=== PATIENT | male | born 1950 | race African-American/Black ===

== ENCOUNTER 2017-09-13 21:25 | Emergency (ER) | payer MEDICARE ==
[~2017-09-13] VITALS: Ht 170.2 cm; Wt 81.6 kg
--- OUTSIDE RECORDS SUMMARY | 2017-09-13 21:32 | XMS REPORT ---
Author Author [facility] Medical Staff Organization [facility] Address [address] [place], [place] [address] Phone [phone] Summary purpose CCDA Sent to [facility] Chief Complaint and Reason for Visit No authorized Reason for Visit (Admitting Diagnosis) is available for this visit. Problem list No authorized problems tracked for continuity of care are available for this visit. Encounters No authorized problems tracked for encounter diagnoses are available for this visit. Medications No medications recorded for this patient visit Allergies, adverse reactions, alerts No allergy information is available for this patient. Immunizations No immunizations recorded for this patient visit Relevant diagnostic tests and/or laboratory data No authorized results are available for this patient visit History of procedures Procedure Code Code Type Description Date Performed Performing Physician 29823 CPT-4 EMERGENCY DEPT VISIT 10-14-2016 AMOR CHAUDHARY Functional status No functional or cognitive status observations are available for this visit. Vital signs No authorized vital signs are available for this visit. Social history No Social History or smoking status observations were recorded for this visit. ( Unknown if ever smoked.) Treatment Plan No treatment plan text is available for this visit. Hospital discharge instructions No discharge instruction text is available for this visit.
--- OUTSIDE RECORDS SUMMARY | 2017-09-13 21:32 | XMS REPORT ---
Author Author [facility] Medical Staff Organization [facility] Address [address] [place], [place] [address] Phone [phone] Summary purpose CCDA Sent to [facility] Chief Complaint and Reason for Visit No [...] Code Type Description Date Performed Performing Physician 75131 CPT-4 ELECTROCARDIOGRAM REPORT 10-14-2016 [facility] Functional status No functional or cognitive status [...]
--- OUTSIDE RECORDS SUMMARY | 2017-09-13 21:32 | XMS REPORT ---
Author Author [facility] Medical Staff Organization [facility] Address [address] [place], [place] [id number] Phone [phone] Summary purpose CCDA Sent to [facility] Chief Complaint and Reason for Visit Admit Diagnosis 1 unspecified mood disorder Problem list No authorized problems tracked for [...] for this patient visit History of procedures No procedures recorded for this patient visit. Functional status No functional or cognitive status [...]
--- OUTSIDE RECORDS SUMMARY | 2017-09-13 21:32 | XMS REPORT ---
Author Author [facility] Medical Staff Organization [facility] Address [address] [place], [place] [address] Phone [phone] Summary purpose CCDA Sent to [facility] Chief Complaint and Reason for Visit Admit Diagnosis 1 MENTAL HEALTH SCREENING Problem list No authorized problems tracked for [...]
--- OUTSIDE RECORDS SUMMARY | 2017-09-13 21:33 | XMS REPORT | Continuity of Care Document ---
Author Author [facility] Organization [facility] Address Unknown Phone Unavailable Allergies There is no data. Medications There is no data. 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 11/16/2016 DAVID LEDEZMA MD F10.10 Alcohol abuse, uncomplicated 11/16/2016 DAVID LEDEZMA MD F25.0 Schizoaffective disorder, bipolar type 11/16/2016 DAVDI LEDEZMA MD I10 Essential (primary) hypertension 11/16/2016 DAVID LEDEZMA MD J30.9 Allergic rhinitis, unspecified 11/16/2016 DAVID LEDEZMA MD K59.00 Constipation, unspecified 11/16/2016 DAVID LEDEZMA MD N39.0 Urinary tract infection, site not specified 11/16/2016 DAVID LEDEZMA MD R32 Unspecified urinary incontinence 11/16/2016 DAVID LEDEZMA MD R35.0 Frequency of micturition 11/16/2016 DAVID LEDEZMA MD R41.0 Disorientation, unspecified 11/16/2016 DAVID LEDEZMA MD Z87.81 Personal history of (healed) traumatic fracture Procedures Code Description [place] [address] ROUTINE VENIPUNCTURE AMOR OTT 10/14/2016 32849 COMPREHEN METABOLIC PANEL AMOR OTT 10/14/2016 42029 URINALYSIS AUTO W/SCOPE AMOR OTT 10/14/2016 38066 ASSAY OF FREE THYROXINE AMOR OTT 10/14/2016 88174 ASSAY THYROID STIM HORMONE AMOR OTT 10/14/2016 78923 COMPLETE CBC W/AUTO DIFF WBC JET LAMASAMOR 10/14/2016 00636 CULTURE AEROBIC IDENTIFY JET LAMASAMOR 10/14/2016 12262 CULTURE SCREEN ONLY JET LAMASAMOR 10/14/2016 05941 URINE CULTURE/COLONY COUNT JET LAMASAMOR 10/14/2016 60658 MICROBE SUSCEPTIBLE MARLENI JET BAINAMOR Brown 10/14/2016 11731 ELECTROCARDIOGRAM TRACING JET AMOR LAMAS 10/14/2016 52722 EMERGENCY DEPT VISIT AMOR OTT 10/14/2016 Results There is no data. Encounters ACCT No. Visit Date/Time Discharge Status Pt. Type Provider Facility Loc./Unit Complaint [id number] 10/14/2016 04:20:00 11/16/2016 20:18:00 DIS Inpatient BRISA COMER, DAVID Nugent [facility] [id number] 10/14/2016 02:40:00 10/14/2016 04:15:00 DIS Emergency AMOR OTT [facility] ER
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
[2017-09-13 22:16] LABS: BASOPHILS % (AUTO) 0 % (0-10); EOSINOPHILS # (AUTO) 0.2 10^3/uL (0.0-0.3); EOSINOPHILS % (AUTO) 4 % (0-10); HEMATOCRIT 43 % (40-54); HEMOGLOBIN 13.7 G/DL (13.3-17.7); LYMPHOCYTES # (AUTO) 2.6 X 10^3 (1.0-4.0); LYMPHOCYTES % (AUTO) 54 % (12-44); MEAN CORPUSCULAR HEMOGLOBIN 29 PG (25-34); MEAN CORPUSCULAR HGB CONC 32 G/DL (32-36); MEAN CORPUSCULAR VOLUME 89 FL (80-99); MEAN PLATELET VOLUME 12.3 FL (7.4-10.4); MONOCYTES # (AUTO) 0.5 X 10^3 (0.0-1.0); MONOCYTES % (AUTO) 10 % (0-12); NEUTROPHILS # (AUTO) 1.6 X 10^3 (1.8-7.8); NEUTROPHILS % (AUTO) 32 % (42-75); PLATELET COUNT 138 10^3/uL (130-400); RED BLOOD COUNT 4.79 10^6/uL (4.35-5.85); RED CELL DISTRIBUTION WIDTH 14.1 % (10.0-14.5); WHITE BLOOD COUNT 4.9 10^3/uL (4.3-11.0)
[2017-09-13] MEDS ORDERED: ATEN50TA PO (22:22)
[2017-09-13] MEDS ORDERED: FURO-125 PO (22:22)
[2017-09-13] MEDS ORDERED: GABA-486 PO (22:22)
[2017-09-13] MEDS ORDERED: SENN-140 PO (22:22)
[2017-09-13] MEDS ORDERED: MELA5CAP PO (22:22)
[2017-09-13] MEDS ORDERED: dorzolamide (22:22)
[2017-09-13] MEDS ORDERED: ATOR10TA PO (22:22)
[2017-09-13] MEDS ORDERED: QUET200T PO (22:22)
[2017-09-13] MEDS ORDERED: DOCU-143 PO (22:22)
[2017-09-13] MEDS ORDERED: DULO30CA3 PO (22:22)
[2017-09-13] MEDS ORDERED: MILK OF MAGNESIUM (22:22)
[2017-09-13 22:34] LABS: ALANINE AMINOTRANSFERASE 12 U/L (0-55); ALKALINE PHOSPHATASE 52 U/L (40-136); BILIRUBIN,TOTAL 0.3 MG/DL (0.1-1.0); BUN/CREATININE RATIO 11; CALCIUM 9.8 MG/DL (8.5-10.1); CARBON DIOXIDE 21 MMOL/L (21-32); CHLORIDE 108 MMOL/L (98-107); CREATININE SERUM 1.08 MG/DL (0.60-1.30); GFR ESTIMATED > 60; GLUCOSE 129 MG/DL (70-105); POTASSIUM 3.7 MMOL/L (3.6-5.0); SODIUM 139 MMOL/L (135-145); TOTAL PROTEIN 7.7 GM/DL (6.4-8.2)
[2017-09-13 23:39] LABS: BILIRUBIN,URINE NEGATIVE (NEGATIVE); CLARITY,URINE CLEAR; COLOR,URINE AMBER; GLUCOSE, URINE (UA) NEGATIVE (NEGATIVE); KETONES,URINE NEGATIVE (NEGATIVE); LEUKOCYTE ESTERASE ,URINE 1+ (NEGATIVE); NITRITE,URINE NEGATIVE (NEGATIVE); PH,URINE 5 (5-9); PROTEIN,URINE 1+ (NEGATIVE); UROBILINOGEN,URINE 1 MG/DL (NORMAL)
[2017-09-13 23:47] LABS: BACTERIA,URINE NEGATIVE /HPF; SQUAMOUS EPITHELIAL CELL,UR >50 /HPF
[2017-09-14 00:10] VITALS: BP 113/76
== END 2017-09-14 00:10 | disposition home or self-care (01) ==
LOC: ER 21:29
DX: F60.3 Borderline personality disorder (principal); F34.9 Persistent mood [affective] disorder, unspecified; F01.50 Vascular dementia, unspecified severity, without behavioral disturbance, psychotic disturbance, mood disturbance, and anxiety
CPT/HCPCS: 36415; 80053; 81000; 85025; 99283

== ENCOUNTER 2018-01-10 19:01 | Emergency (ER) | payer MEDICARE ==
[~2018-01-10] VITALS: Ht 172.7 cm; Wt 81.6 kg
[~2018-01-10 19:01] MED LIST: ATEN50TA PO; ATOR10TA PO; DOCU-143 PO; DULO30CA3 PO; FURO-125 PO; GABA-486 PO; MELA5CAP PO; MILK OF MAGNESIUM; QUET200T PO; SENN-141 PO; dorzolamide
--- OUTSIDE RECORDS SUMMARY | 2018-01-10 19:23 | XMS REPORT | Continuity of Care Document ---
Author Author [facility] Organization [facility] Address Unknown Phone Unavailable Allergies Active Description Code Type Severity Reaction Onset Reported/Identified Relationship to Patient Clinical Status Yes NO KNOWN DRUG ALLERGIES UNKNOWN NO KNOWN DRUG ALLERG Medications Medication Packaging Start Date Stop Date Route Dosage Sig HALOPERIDOL TAB 5 MG (HALDOL) MG 10/27/2017 PRN Q6H LORAZEPAM TAB 2 MG (ATIVAN) MG 10/04/2017 PRN Q6H HALOPERIDOL VIAL INJ 5 MG/CC (HALDOL 1CC VIAL) MG 09/27/2017 10/04/2017 PRN Q6H LORAZEPAM 1CC VIAL INJ 2 MG/CC (ATIVAN VIAL) MG 09/27/2017 10/04/2017 PRN Q6H GABAPENTIN CAP 100 MG (NEURONTIN) MG 09/27/2017 10/04/2017 TID&0800,1400,2000 QUETIAPINE TAB 100 MG (SEROQUEL) MG 09/27/2017 10/04/2017 BID&0800,2000 Docusate sodium 100mg oral capsule (COLACE) MG 09/27/2017 10/27/2017 BID&0800,2000 DIVALPROEX ER TAB 125 MG (DEPAKOTE ER) MG 09/27/2017 10/27/2017 BID&0800,2000 DORZOLAMIDE EYE DROP OPT 2 % (TRUSOPT EYE DROP) drop 09/27/2017 10/11/2017 BID&0800,2000 DULOXETINE CAP 30 MG (CYMBALTA) MG 09/27/2017 10/27/2017 BID&0800,2000 SIMVASTATIN TAB 10 MG (ZOCOR) MG 10/26/2017 QPM&2000 SENNA CONC/DOCUSATE TAB (SENOKOT S) TAB 09/27/2017 10/26/2017 QHS&2100 MELATONIN TAB 3 MG (MELATONIN) MG 09/27/2017 10/03/2017 QHS&2100 ACETAMINOPHEN ORAL TABLET 325mg(Tylenol) MG 09/27/2017 10/27/2017 PRN EVERY 6 Hour ALUM/MAG/SIMETH 30CC LIQ (MYLANTA PLUS) cc 09/28/2017 10/28/2017 PRN Q4H LOPERAMIDE CAP 2 MG (IMMODIUM) MG 09/28/2017 10/28/2017 PRN QID LACTULOSE SYRUP LIQ 20 GM/30CC (CHRONULAC SYRUP) GM 09/28/2017 10/27/2017 BID&0800,2000 FUROSEMIDE TAB 20 MG (LASIX) MG 10/04/2017 Daily&0900 BISACODYL SUPPOS 10 MG (DULCOLAX SUPPOS) MG 09/28/2017 10/28/2017 PRN Daily ATENOLOL TAB 50 MG (TENORMIN) MG 10/27/2017 Daily&0900 MILK OF MAGNESIA LIQ ml 09/28/2017 10/28/2017 PRN Daily Divalproex 250mg extended release 24 hr (Depakote) MG 09/29/2017 10/28/2017 QHS&2100 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 11/16/2016 DAVID LEDEZMA MD F10.10 Alcohol abuse, uncomplicated 11/16/2016 DAVID LEDEZMA MD F25.0 Schizoaffective disorder, bipolar type 11/16/2016 DAVID LEDEZMA MD I10 Essential (primary) hypertension 11/16/2016 DAVID LEDEZMA MD J30.9 Allergic rhinitis, unspecified 11/16/2016 DAVID LEDEZMA MD K59.00 Constipation, unspecified 11/16/2016 DAVID LEDEZMA MD N39.0 Urinary tract infection, site not specified 11/16/2016 DAVID LEDEZMA MD R32 Unspecified urinary incontinence 11/16/2016 DAVID LEDEZMA MD R35.0 Frequency of micturition 11/16/2016 BRISA MD, DAVID B D R41.0 Disorientation, unspecified 11/16/2016 BRISA COMER, DAVID Shukla Z87.81 Personal history of (healed) traumatic fracture 09/14/2017 DELPHINE COMER, KIRT T Ot F01.50 VASCULAR DEMENTIA WITHOUT BEHAVIORAL DIS 09/14/2017 DELPHINE COMER, KIRT T Ot 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, UN 09/14/2017 DELPHINE COMER, KIRT T Ot 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 09/14/2017 DELPHINE COMER, KIRT T Ot 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 09/15/2017 DELPHINE COMER, KIRT T Ot F01.50 VASCULAR DEMENTIA WITHOUT BEHAVIORAL DIS 09/15/2017 DELPHINE COMER, KIRT T Ot 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, UN 09/15/2017 DELPHINE COMER, KIRT T Ot 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 09/15/2017 DELPHINE COMER, KIRT T Ot 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 09/27/2017 JAILYN, ASHLEY W 290.41 VASCULAR DEMENTIA, WITH DELIRIUM 09/27/2017 JAILYN, ASHLEY W 300.00 ANXIETY STATE, UNSPECIFIED 09/27/2017 JAILYN, ASHLEY W 401.9 UNSPECIFIED ESSENTIAL HYPERTENSION 09/27/2017 JAILYN, ASHLEY W F01.51 VASCULAR DEMENTIA WITH BEHAVIORAL DISTURBANCE 09/27/2017 JAILYN, ASHLEY W F41.9 ANXIETY DISORDER, UNSPECIFIED 09/27/2017 JAILYN, ASHLEY W I10 ESSENTIAL (PRIMARY) HYPERTENSION 10/03/2017 JAILYN, ASHLEY W 272.4 OTHER AND UNSPECIFIED HYPERLIPIDEMIA 10/03/2017 JAILYN, ASHLEY W 290.41 VASCULAR DEMENTIA, WITH DELIRIUM 10/03/2017 JAILYN, ASHLEY A 296.34 10/03/2017 JAILYN, ASHLEY W 297.1 10/03/2017 JAILYN, ASHLEY W 300.00 ANXIETY STATE, UNSPECIFIED 10/03/2017 JAILYN, ASHLEY W 401.9 UNSPECIFIED ESSENTIAL HYPERTENSION 10/03/2017 JAILYN, ASHLEY W 564.00 CONSTIPATION, UNSPECIFIED 10/03/2017 JAILYN, ASHLEY W E78.5 HYPERLIPIDEMIA, UNSPECIFIED 10/03/2017 ASHLEY GLASER F01.51 VASCULAR DEMENTIA WITH BEHAVIORAL DISTURBANCE 10/03/2017 ASHLEY GLASER F22 DELUSIONAL DISORDERS 10/03/2017 ASHLEY GLASER F33.3 MAJOR DEPRESSV DISORDER, RECURRENT, SEVERE W PSYCH SYMPTOMS 10/03/2017 ASHLEY GLASER F41.9 ANXIETY DISORDER, UNSPECIFIED 10/03/2017 ASHLEY GLASER I10 ESSENTIAL (PRIMARY) HYPERTENSION 10/03/2017 ASHLEY GLASER K59.09 OTHER CONSTIPATION Procedures Code Description [place] [address] ROUTINE VENIPUNCTURE AMOR OTT 10/14/2016 59668 COMPREHEN METABOLIC PANEL AMOR OTT 10/14/2016 37517 URINALYSIS AUTO W/SCOPE AMOR OTT 10/14/2016 98985 ASSAY OF FREE THYROXINE AMOR OTT 10/14/2016 91223 ASSAY THYROID STIM HORMONE AMOR OTT 10/14/2016 62520 COMPLETE CBC W/AUTO DIFF WBC AMOR OTT 10/14/2016 28373 CULTURE AEROBIC IDENTIFY AMOR OTT 10/14/2016 29279 CULTURE SCREEN ONLY AMOR OTT 10/14/2016 84595 URINE CULTURE/COLONY COUNT JET AMOR LAMAS 10/14/2016 87967 MICROBE SUSCEPTIBLE MARLENI JET AMOR LAMAS 10/14/2016 72165 ELECTROCARDIOGRAM TRACING AMOR OTT 10/14/2016 23376 EMERGENCY DEPT VISIT AMOR OTT 10/14/2016 Results Test Result Range Complete blood count (CBC) with automated white blood cell (WBC) differential - 09/13/17 22:07 Blood leukocytes automated count (number/volume) 4.9 10*3/uL 4.3-11.0 Blood erythrocytes automated count (number/volume) 4.79 10*6/uL 4.35-5.85 Venous blood hemoglobin measurement (mass/volume) 13.7 g/dL 13.3-17.7 Blood hematocrit (volume fraction) 43 % 40-54 Automated erythrocyte mean corpuscular volume 89 [foz_us] 80-99 Automated erythrocyte mean corpuscular hemoglobin (mass per erythrocyte) 29 pg 25-34 Automated erythrocyte mean corpuscular hemoglobin concentration measurement ( mass/volume) 32 g/dL 32-36 Automated erythrocyte distribution width ratio 14.1 % 10.0-14.5 Automated blood platelet count (count/volume) 138 10*3/uL 130-400 Automated blood platelet mean volume measurement 12.3 [foz_us] 7.4-10.4 Automated blood neutrophils/100 leukocytes 32 % 42-75 Automated blood lymphocytes/100 leukocytes 54 % 12-44 Blood monocytes/100 leukocytes 10 % 0-12 Automated blood eosinophils/100 leukocytes 4 % 0-10 Automated blood basophils/100 leukocytes 0 % 0-10 Blood neutrophils automated count (number/volume) 1.6 10*3 1.8-7.8 Blood lymphocytes automated count (number/volume) 2.6 10*3 1.0-4.0 Blood monocytes automated count (number/volume) 0.5 10*3 0.0-1.0 Automated eosinophil count 0.2 10*3/uL 0.0-0.3 Automated blood basophil count (count/volume) 0.0 10*3/uL 0.0-0.1 Comprehensive metabolic panel - 09/13/17 22:07 Serum or plasma sodium measurement (moles/volume) 139 mmol/L 135-145 Serum or plasma potassium measurement (moles/volume) 3.7 mmol/L 3.6-5.0 Serum or plasma chloride measurement (moles/volume) 108 mmol/L 98-107 Carbon dioxide 21 mmol/L 21-32 Serum or plasma anion gap determination (moles/volume) 10 mmol/L 5-14 Serum or plasma urea nitrogen measurement (mass/volume) 12 mg/dL 7-18 Serum or plasma creatinine measurement (mass/volume) 1.08 mg/dL 0.60-1.30 Serum or plasma urea nitrogen/creatinine mass ratio 11 NRG Serum or plasma creatinine measurement with calculation of estimated glomerular filtration rate > NRG Serum or plasma glucose measurement (mass/volume) 129 mg/dL 70-105 Serum or plasma calcium measurement (mass/volume) 9.8 mg/dL 8.5-10.1 Serum or plasma total bilirubin measurement (mass/volume) 0.3 mg/dL 0.1-1.0 Serum or plasma alkaline phosphatase measurement (enzymatic activity/volume) 52 U/L 40-136 Serum or plasma aspartate aminotransferase measurement (enzymatic activity/ volume) 18 U/L 5-34 Serum or plasma alanine aminotransferase measurement (enzymatic activity/volume ) 12 U/L 0-55 Serum or plasma protein measurement (mass/volume) 7.7 g/dL 6.4-8.2 Serum or plasma albumin measurement (mass/volume) 4.0 g/dL 3.2-4.5 Complete urinalysis with reflex to culture - 09/13/17 23:30 Urine color determination BUSTER NRG Urine clarity determination CLEAR NRG Urine pH measurement by test strip 5 5-9 Specific gravity of urine by test strip 1.025 1.016- 1.022 Urine protein assay by test strip, semi-quantitative 1+ NEGATIVE Urine glucose detection by automated test strip NEGATIVE NEGATIVE Erythrocytes detection in urine sediment by light microscopy NEGATIVE NEGATIVE Urine ketones detection by automated test strip NEGATIVE NEGATIVE Urine nitrite detection by test strip NEGATIVE NEGATIVE Urine total bilirubin detection by test strip NEGATIVE NEGATIVE Urine urobilinogen measurement by automated test strip (mass/volume) 1 mg/dL NORMAL Urine leukocyte esterase detection by dipstick 1+ NEGATIVE Automated urine sediment erythrocyte count by microscopy (number/high power field) NONE NRG Automated urine sediment leukocyte count by microscopy (number/high power field ) NONE NRG Bacteria detection in urine sediment by light microscopy NEGATIVE NRG Squamous epithelial cells detection in urine sediment by light microscopy >50 NRG Crystals detection in urine sediment by light microscopy NONE NRG Casts detection in urine sediment by light microscopy NONE NRG Mucus detection in urine sediment by light microscopy NEGATIVE NRG Complete urinalysis with reflex to culture NO NRG Thyroid Stimulating Hormone - 09/27/17 17:52 TSH 1.55 mIU/mL 0.32-5.00 Valproic Acid - 09/27/17 17:52 Valproic Acid 20.3 ug/mL 55.0-105.0 MRSA Screen - 09/27/17 17:52 FINAL CULTURE RESULTS MRSA Negative Nasal Culture MEDIA PLATED Setup at 18:00 on 09/27/2017 Urinalysis - 09/27/17 19:08 Icotest N/A Negative Urine Volume Urine Volume Sufficient (10mL) Urine-Appearance Clear Clear Urine-Bacteria Negative Urine-Bilirubin Negative Negative Urine-Blood Negative Negative Urine-Color Yellow Colorless-Lt. Yellow Urine-Epithelial Cells 0-5/HPF Urine-Glucose Negative Negative Urine-Ketones Negative Negative Urine-Leukocytes Negative Negative Urine-Nitrite Negative Negative Urine-Other Urine Saved if Culture Needed (48hrs from time of collection) Urine-pH 7.0 5-8.5 Urine-Protein Negative Negative Urine-RBC Rare/HPF Urine-Specific [place] 1.015 1.000-1.030 Urine-WBC 0-2/HPF Urobilinogen 0.2 0.2-1.0 CBC with Auto Diff - 09/28/17 05:25 Baso% 0.20 % 0.00-2.50 Eos 0.2 K/uL 0.0-0.7 Eos% 4.8 % 0.0-7.0 Hct 41.4 % 42.0-52.0 Hgb 13.5 g/dL 14.0-17.0 Lym 2.11 K/uL 0.60-3.40 Lym% 46.3 % 10.0-50.0 MCH 29.2 pg 27.0-31.2 MCHC 32.6 g/dL 32.0-36.0 MCV 89.6 fL 80.0-97.0 Concho% 12.7 % 0.0-12.0 MPV 12.6 fL 7.4-10.0 Elder% 36.0 % 37.0-80.0 Plt 121 K/uL 150-400 RBC 4.62 M/uL 4.20-5.40 RDW 13.5 % 11.6-14.8 WBC 4.56 K/uL 5.00-10.00 Elder 1.64 K/uL 2.00-6.90 [place] 0.6 K/uL 0.0-0.9 Baso 0.0 K/uL 0.0-0.2 Encounters ACCT No. Visit Date/Time Discharge Status Pt. Type Provider Facility Loc./Unit Complaint [id number] 10/14/2016 04:20:00 11/16/2016 20:18:00 DIS Inpatient BRISA COMER, DAVID Nugent [facility] [id number] 10/14/2016 02:40:00 10/14/2016 04:15:00 DIS Emergency AMOR OTT [facility] ER [id number] 09/13/2017 21:29:00 09/14/2017 00:10:00 DIS Emergency DELPHINE COMER, KIRT T [facility] ER REQUESTING PSYCHIATRIC EVALUATION [id number] 09/27/2017 19:25:00 10/03/2017 13:15:00 DIS Inpatient JAILYN [facility] [id number] 09/27/2017 17:41:02 Document Registration
[2018-01-10] MEDS ORDERED: HALOPERIDOL 5 MG/ML (HALDOL) AMP IM ONE (21:15)
[2018-01-10] MEDS ORDERED: diphenhydrAMINE 25 MG TAB (BENADRYL) PO ONE (21:15)
[2018-01-10] MEDS ORDERED: LORazepam INJ 2 MG/ML (ATIVAN) VIAL IM ONE (21:15)
--- NOTE | 2018-01-10 21:29 | ED Psychosocial ---
General Chief Complaint: Psych/Social Disorder Stated Complaint: AGITATION, HIT OTHER RESIDENT Nursing Triage Note: PT PRESENTS TO ED FROM [facility] FOR AGGITATION AND HITTING ANOTHER RESIDENT. PT REPORTS "HE FEELS FINE NOW AND THAT THE RESIDENT JUST GOT INTO HIS SPACE." PT IS PLEASANT AND COOPERATIVE WITH ED STAFF. Source: [facility] records Exam Limitations: clinical condition (PT WITH DEMENTIA AND IS UNABLE TO GIVE ANY RELEVANT INFORMATION) History of Present Illness Date Seen by Provider: Jan 10, 2018 Time Seen by Provider: 20:10 Initial Comments PT ARRIVES VIA POV FROM [facility], WITH A FACULTY MEMBER PT REPORTEDLY WAS AGITATED TONIGHT AND STRUCK ANOTHER RESIDENT NO OTHER INFORMATION IS OBTAINABLE PT IS UNABLE TO ANSWER ANY QUESTIONS TO WHY HE IS HERE, HE ONLY STATES "THEY SAID I DID SOMETHING" PT EVADES QUESTIONS, CANNOT STAY ON SUBJECT, TALK IS NON-SENSICAL/NON-RELEVANT TO ANY QUESTIONS HE IS ASKED PT HAS A SIGNIFICANT PROTESTANT FIXATION, AND ALL CONVERSATIONS /ALL TALK FROM PT INVOLVES RASTAFARIAN. 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 PT STATES HE DOES NOT HAVE ANY MEDICAL PROBLEMS AND DOES NOT TAKE ANY MEDICATIONS FOR ANYTHING ( THIS IS NOT TRUE) ON ARRIVAL, PT IS VERY PLEASANT, COOPERATIVE, SMILING AND TALKATIVE. PT IS PACING A LITTLE, SLIGHTLY RESTLESS--DOES NOT WANT TO SIT DOWN, AND STATES HE IS READY TO GO SHORTLY AFTER HE IS PLACED IN ER ROOM, BUT IS NOT AGITATED Allergies and Home Medications Allergies Coded Allergies: No Known Drug Allergies (Unverified , 01/10/18) Home Medications Atenolol 50 Mg Tablet, 50 MG PO DAILY, (Reported) Atorvastatin Calcium 10 Mg Tablet, 10 MG PO HS, (Reported) Docusate Sodium 100 Mg Capsule, 100 MG PO BID, (Reported) Duloxetine HCl 30 Mg Capsule.dr, 30 MG PO BID, (Reported) Furosemide 20 Mg Tablet, 20 MG PO DAILY, (Reported) Gabapentin 100 Mg Capsule, 100 MG PO TID, (Reported) Melatonin 5 Mg Capsule, 5 MG PO HS, (Reported) Quetiapine Fumarate 200 Mg Tablet, 200 MG PO BID, (Reported) Sennosides 8.6 Mg Tablet, 17.2 MG PO HS, (Reported) Patient Home Medication List Home Medication List Reviewed: Yes Review of Systems Constitutional: other (UNABLE TO OBTAIN FROM PT) Past Qclnyoi-Ewfvlo-Jwplxw Hx Patient Social History Alcohol Use: Rarely Uses Recreational Drug Use: No Smoking Status: Never a Smoker Recent Foreign Travel: No Contact w/Someone Who Travel: No Recent Infectious Disease Expo: No Recent Hopitalizations: No Physical Abuse: No Sexual Abuse: No Mistreated: No Fear: No Seasonal Allergies Seasonal Allergies: Yes Past Medical History Surgeries: No (UNKNOWN) Respiratory: Yes (chronic rhinitis) Cardiac: Yes Chronic Edema/Swelling, High Cholesterol, Hypertension 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 oz. [phone]; BMI Method:Stated General Appearance: WD/WN, no apparent distress Neck: normal inspection Respiratory: normal breath sounds, no respiratory distress, no accessory muscle use Cardiovascular: regular rate, rhythm, no murmur Extremities: normal inspection Neurologic/Psychiatric: artificial flower maker II-XII nml as tested, no motor/sensory deficits, alert, disoriented x 3, other (MENTATION ABOVE) Appearance/Memory: appropriate appearance, neat, denies illness, impaired insight, impaired recent memory, impaired remote memory Behavior/Eye Contact: other ( ABOVE) Thoughts/Hallucinations: no apparent hallucination, flight of ideas, presybeterian Skin: normal color (PT IS BLACK), warm/dry Progress/Results/Core Measures Results/Orders My Orders Orders - MO WHITFIELD DO Ua Culture If Indicated (01/10/18 20:23) Haloperidol Injection (Haldol Injectio (01/10/18 21:15) Lorazepam Injection (Ativan Injection) (01/10/18 21:15) Diphenhydramine Tablet (Benadryl Tablet) (01/10/18 21:15) Medications Given in ED Current Medications Medications Dose Ordered Sig/Reji Route Start Time Stop Time Status Last Admin Dose Admin Diphenhydramine HCl 50 mg ONCE ONCE PO 01/10/18 21:15 01/10/18 21:16 DC 01/10/18 21:25 50 MG Haloperidol Lactate 5 mg ONCE ONCE IM 01/10/18 21:15 01/10/18 21:16 DC 01/10/18 21:20 5 MG Lorazepam 2 mg ONCE ONCE IM 01/10/18 21:15 01/10/18 21:16 DC 01/10/18 21:20 2 MG Vital Signs/I&O 01/10/18 01/10/18 19:58 21:34 Temp 97.5 Pulse 76 69 Resp 20 16 B/P (MAP) 140/102 (115) 126/87 (100) Pulse Ox 96 98 Blood Pressure Mean: 115 Progress Progress Note : Progress Note FACULTY MEMBER/ATTENDANT LEFT THE ROOM FOR AWHILE--DID NOT INFORM STAFF SHE WAS LEAVING- -AND PT WAS WANDERING AROUND IN THE ER. PT REDIRECTED TO FAMILY ROOM TO SIT DOWN , HE DID NOT WANT TO GO BACK TO THE ER ROOM HE HAD BEEN IN. PT EVENTUALLY RE-DIRECTED BACK TO THE ER ROOM 8, AND EVENTUALLY AGREED TO SIT DOWN ON ER CART/BED. PT REFUSED TESTS--REFUSED LAB DRAW AND WOULD NOT GIVE URINE SPECIMEN PT BECAME SOMEWHAT AGITATED WHEN LAB WAS APPROACHING HIM ABOUT DRAWING BLOOD, AND HE REFUSED. PT DID NOT BECOME BELLIGERENT OR COMBATIVE OR THREATENING TO ANY STAFF MEMBER. AFTER DISCUSSING WITH DR. MACDONALD, PT WAS GIVEN PO BENADRYL, IM ATIVAN + HALDOL, WHICH PT WAS VERY COOPERATIVE WITH. PT HAD NO AGGRESSIVE BEHAVIOR DURING ER STAY. Departure Communication (Admissions) [id number]--SPOKE WITH DR. MACDONALD, HE ADVISES THAT THERE IS NO NEED FOR TESTS OR HAVING TO BECOME MORE AGGRESSIVE WITH PT OR RESTRAIN PT TO OBTAIN LAB. HE DOES ADVISE ATIVAN, HALDOL AND BENADRYL. AND CAN SEND PT BACK TO [facility]. Impression Primary Impression: Dementia with behavioral disturbance Additional Impression: Dementia with aggressive behavior Disposition: 03 XFER SNF Condition: Stable Departure-Patient Inst. Referrals: GABRIELLE MACDONALD DO (PCP/Family) Primary Care Physician Patient Instructions: Dementia (DC) Add. Discharge Instructions: CONTINUE MEDICATIONS PRESCRIBED FOLLOW UP WITH DR. MACDONALD FOR FURTHER ORDERS AND CARE All discharge instructions reviewed with patient and/or family. Voiced understanding. MO WHITFIELD DO Jan 10, 2018 21:29
[2018-01-10 21:34] VITALS: BP 126/87
== END 2018-01-10 21:34 ==
LOC: EDUNIT# 19:01 → ER 19:02
DX: F01.51 Vascular dementia, unspecified severity, with behavioral disturbance (principal); I10 Essential (primary) hypertension; E78.00 Pure hypercholesterolemia, unspecified; F41.9 Anxiety disorder, unspecified; F32.9 Major depressive disorder, single episode, unspecified; Z87.19 Personal history of other diseases of the digestive system
CPT/HCPCS: 96372; 99284

== ENCOUNTER → 2018-06-27 | Outpatient (CLI) | payer MEDICARE ==
--- NOTE | 2018-06-27 19:15 | Diagnostic Imaging Report ---
INDICATION: Right shoulder pain. EXAMINATION: AP, oblique, and lateral views of the right shoulder are obtained. FINDINGS: No fracture or acute bony abnormality is seen. There is narrowing of the glenohumeral joint with osteophyte formation. There is minimal distance between the acromion and humeral head raising the possibility of rotator cuff pathology. IMPRESSION: No acute fracture or dislocation. Degenerative findings with findings suggestive of rotator cuff pathology. Correlate clinically. Dictated by: Dictated on workstation # [id number]
== END ==
LOC: RAD 13:10
PROVIDERS: ATTEND Family Medicine
DX: M25.511 Pain in right shoulder (principal)
CPT/HCPCS: 73030

== ENCOUNTER 2018-09-11 10:49 | Observation (INO) | payer MEDICARE ==
[~2018-09-11] VITALS: Ht 170.2 cm; Wt 71.9 kg
--- OUTSIDE RECORDS SUMMARY | 2018-09-11 11:00 | XMS REPORT | Continuity of Care Document ---
Author Organization Unknown Address Unknown Allergies Active Description Code Type Severity Reaction Onset Reported/Identified Relationship to Patient Clinical Status Yes NO KNOWN DRUG ALLERGIES UNKNOWN NO KNOWN DRUG ALLERG Yes No Known Drug Allergies [id number] Drug Allergy Unknown N/A 01/10/2018 Medications Medication Packaging Start Date Stop Date Route Dosage Sig HALOPERIDOL TAB 5 MG (HALDOL) MG 09/27/2017 10/27/2017 PRN Q6H LORAZEPAM TAB 2 MG (ATIVAN) MG 09/27/2017 10/04/2017 PRN Q6H HALOPERIDOL VIAL INJ 5 [...] BID&0800,2000 SIMVASTATIN TAB 10 MG (ZOCOR) MG 09/27/2017 10/26/2017 QPM&1999 SENNA CONC/DOCUSATE TAB (SENOKOT S) TAB 09/27/2017 [...] BID&0800,2000 FUROSEMIDE TAB 20 MG (LASIX) MG 09/28/2017 10/04/2017 Daily&0900 BISACODYL SUPPOS 10 MG (DULCOLAX SUPPOS) MG 09/28/2017 10/28/2017 PRN Daily ATENOLOL TAB 50 MG (TENORMIN) MG 09/28/2017 10/27/2017 Daily&0900 MILK OF MAGNESIA LIQ ml 09/28/2017 10/28/2017 PRN Daily Divalproex 250mg extended release 24 hr (Depakote) MG 09/29/2017 10/28/2017 QHS&2100 HALOPERIDOL TAB 5 MG (HALDOL) MG 04/09/2018 05/09/2018 PRN Q6H LORAZEPAM TAB 1 MG (ATIVAN) MG 04/09/2018 04/16/2018 PRN Q6H QUETIAPINE TAB 100 MG (SEROQUEL) MG 04/09/2018 04/09/2018 ONCE&0900 QUETIAPINE TAB 25 MG (SEROQUEL) MG 04/09/2018 04/09/2018 ONCE&0900 HALOPERIDOL VIAL INJ 5 MG/CC (HALDOL 1CC VIAL) MG 04/09/2018 04/16/2018 PRN Q6H LORAZEPAM 1CC VIAL INJ 2 MG/CC (ATIVAN VIAL) MG 04/09/2018 04/16/2018 PRN Q6H GABAPENTIN CAP 100 MG (NEURONTIN) MG 04/09/2018 05/09/2018 TID&0800,1400,2000 Docusate sodium 100mg oral capsule (COLACE) 04/09/2018 05/09/2018 BID&0800,2000 DORZOLAMIDE EYE DROP OPT 2 % (TRUSOPT EYE DROP) drop 04/09/2018 05/09/2018 BID&0800,2000 SIMVASTATIN TAB 10 MG (ZOCOR) MG 04/09/2018 05/08/2018 QPM&2000 LACTULOSE SYRUP LIQ 20 GM/30CC (CHRONULAC SYRUP) GM 04/09/2018 05/09/2018 BID&0800,2000 ACETAMINOPHEN ORAL TABLET 325mg(Tylenol) MG 04/09/2018 05/09/2018 PRN EVERY 6 Hour QUETIAPINE TAB 100 MG (SEROQUEL) MG 04/09/2018 05/08/2018 QHS&2100 DIVALPROEX ER TAB 500 MG (DEPAKOTE ER) MG 04/09/2018 05/08/2018 QHS&2100 Divalproex 250mg extended release 24 hr (Depakote) 04/09/2018 05/08/2018 QHS&2100 LATANOPROST OPHTH SOLUTION LIQ 0.005 % (XALATAN) drops 04/09/2018 05/08/2018 QHS&2100 TRAZODONE TAB 50 MG (DESYREL) MG 04/09/2018 05/09/2018 PRN QHS POLYETHYLENE GLYCOL POWDER UD PWD (MIRALAX 17GM UNIT DOSE PAKS) gm 04/09/2018 04/19/2018 PRN Q3H SENNA CONC/DOCUSATE TAB (SENOKOT S) TAB 04/09/2018 05/08/2018 QHS&2100 MELATONIN TAB 3 MG (MELATONIN) MG 04/09/2018 05/08/2018 QHS&2100 CALMOSEPTINE OINT TUBE (RISAMINE OINT) wyatt 04/09/2018 04/16/2018 PRN QID LOPERAMIDE CAP 2 MG (IMMODIUM) MG 04/09/2018 04/16/2018 PRN QID ALUM/MAG/SIMETH 30CC LIQ (MYLANTA PLUS) cc 04/09/2018 04/19/2018 PRN Q4H LACTULOSE SYRUP LIQ 20 GM/30CC (CHRONULAC SYRUP) GM 04/10/2018 05/09/2018 BID&0800,2000 MILK OF MAGNESIA LIQ ml 04/10/2018 05/09/2018 PRN BID QUETIAPINE TAB 100 MG (SEROQUEL) MG 04/10/2018 05/09/2018 Daily&0900 DULOXETINE CAP 30 MG (CYMBALTA) MG 04/10/2018 05/09/2018 Daily&0900 FUROSEMIDE TAB 20 MG (LASIX) MG 04/10/2018 05/09/2018 Daily&0900 BISACODYL SUPPOS 10 MG (DULCOLAX SUPPOS) MG 04/10/2018 04/16/2018 PRN Daily ATENOLOL TAB 50 MG (TENORMIN) MG 04/10/2018 05/09/2018 Daily&0900 MILK OF ANNETTE BROWNQ ml 04/10/2018 05/10/2018 PRN Daily OLANZAPINE IM VIAL INJ 10 MG/VIAL (ZYPREXA IM VIAL) MG 04/10/2018 04/10/2018 ONCE&1038 ZIPRASIDONE CAP 20 MG (GEODON) MG 04/10/2018 05/10/2018 BID&0800,2000 OLANZAPINE TAB 10 MG (ZYPREXA) MG 04/10/2018 04/10/2018 ONCE&2100 RISPERIDONE TAB 0.5 MG (RISPERDAL) MG 04/11/2018 05/11/2018 BID&0600,1800 RISPERIDONE TAB 0.5 MG (RISPERDAL) MG 04/15/2018 05/14/2018 Daily&1200 RISPERIDONE TAB 0.5 MG (RISPERDAL) MG 04/15/2018 05/14/2018 Daily&2000 DIVALPROEX ER TAB 500 MG (DEPAKOTE ER) MG 04/15/2018 05/14/2018 QHS&2100 TRAZODONE TAB 50 MG (DESYREL) MG 04/15/2018 05/15/2018 PRN QHS ACETAMINOPHEN ORAL TABLET 325mg(Tylenol) MG 04/20/2018 05/20/2018 PRN EVERY 6 Hour CALMOSEPTINE OINT TUBE (RISAMINE OINT) wyatt 04/20/2018 04/26/2018 PRN QID DORZOLAMIDE EYE DROP OPT 2 % (TRUSOPT EYE DROP) drop 04/20/2018 05/19/2018 BID&0800,2000 LOPERAMIDE CAP 2 MG (IMMODIUM) MG 04/20/2018 05/20/2018 PRN QID MILK OF ANNETTE LIQ ml 04/20/2018 05/20/2018 PRN BID POLYETHYLENE GLYCOL POWDER UD PWD (MIRALAX 17GM UNIT DOSE PAKS) gm 04/20/2018 05/20/2018 PRN Q3H BISACODYL SUPPOS 10 MG (DULCOLAX SUPPOS) MG 04/20/2018 05/20/2018 PRN Daily ALUM/MAG/SIMETH 30CC LIQ (MYLANTA PLUS) cc 04/20/2018 05/20/2018 PRN Q4H OLANZAPINE IM VIAL INJ 10 MG/VIAL (ZYPREXA IM VIAL) MG 04/20/2018 04/20/2018 ONCE&1149 RISPERIDONE TAB 0.5 MG (RISPERDAL) MG 04/20/2018 05/19/2018 Daily&0900 WATER STERILE PF INJ ml 04/20/2018 04/20/2018 ONCE&1201 GABAPENTIN CAP 100 MG (NEURONTIN) MG 04/20/2018 05/19/2018 TID&0800,1400,2000 DIVALPROEX ER TAB 500 MG (DEPAKOTE ER) MG 04/20/2018 05/19/2018 TID&0800,1400,2000 RISPERIDONE CONSTA INJ 25 MG (RISPERDAL CONSTA) MG 04/20/2018 04/20/2018 ONCE&1419 Docusate sodium 100mg oral capsule (COLACE) 04/20/2018 05/19/2018 BID&0800,2000 SIMVASTATIN TAB 10 MG (ZOCOR) MG 04/20/2018 05/19/2018 QPM&2000 RISPERIDONE TAB 1 MG (RISPERDAL) MG 04/20/2018 05/11/2018 BID&0800,2000 LACTULOSE SYRUP LIQ 20 GM/30CC (CHRONULAC SYRUP) GM 04/20/2018 05/19/2018 BID&0800,2000 DIVALPROEX ER TAB 500 MG (DEPAKOTE ER) MG 04/20/2018 05/19/2018 QHS&2100 LATANOPROST OPHTH SOLUTION LIQ 0.005 % (XALATAN) drops 04/20/2018 05/19/2018 QHS&2100 RISPERIDONE TAB 0.5 MG (RISPERDAL) MG 04/20/2018 05/19/2018 QHS&2100 SENNA CONC/DOCUSATE TAB (SENOKOT S) TAB 04/20/2018 05/19/2018 QHS&2100 RISPERIDONE TAB 1 MG (RISPERDAL) MG 04/21/2018 05/20/2018 TID&0800,1400,2000 FUROSEMIDE TAB 20 MG (LASIX) MG 04/21/2018 05/19/2018 Daily&0900 ATENOLOL TAB 50 MG (TENORMIN) MG 04/21/2018 05/19/2018 Daily&0900 GUAIFENESIN - DM LIQ (ROBITUSSIN DM) MLS 04/21/2018 04/24/2018 PRN Q4H IPRATROPIUM/ALBUTEROL INH SOLN (DUO-NEB INH SOLN) MLS 04/21/2018 04/24/2018 BID&0800,2000 NORMAL SALINE 1000CC IV BAG INJ 0.9 % (NS 1000CC IV BAG) ml 04/22/2018 05/07/2018 CONTINUOUSEVERY 0 Hour LORAZEPAM TAB 0.5 MG (ATIVAN) MG 04/22/2018 04/24/2018 PRN Q8H DIVALPROEX ER TAB 500 MG (DEPAKOTE ER) MG 04/23/2018 05/22/2018 Daily&0900 NORMAL SALINE 1000CC IV BAG INJ 0.9 % (NS 1000CC IV BAG) ml 04/23/2018 05/08/2018 CONTINUOUSEVERY 0 Hour Metoprolol IV soln 5mg/5cc vial (Lopressor) MG 04/23/2018 04/30/2018 PRN EVERY 0 Hour ACETAMINOPHEN ORAL TABLET 325mg(Tylenol) MG 04/23/2018 04/23/2018 PRN ONCE ALPRAZOLAM TAB 0.25 MG (XANAX) MG 04/23/2018 05/03/2018 PRN Q6H CLONIDINE TAB 0.1 MG (CATAPRES) MG 04/23/2018 04/30/2018 PRN Q6H CALCIUM CARBONATE TAB 500 MG (TUMS) MG 04/23/2018 04/30/2018 PRN Q6H DIPHENHYDRAMINE CAP 25 MG (BENADRYL) MG 04/23/2018 04/30/2018 PRN Q6H HYDROCODONE/APAP 5MG/325MG TAB 5 MG/325MG (RUSSELL-TAB 5/325) TAB 04/23/2018 05/03/2018 PRN Q6H Piperacillin-tazobactam 3.375 Gm IV recon soln (Zosyn) GM 04/23/2018 04/30/2018 Q6H&0600,1200,1800,2359 ACETAMINOPHEN SUPPOS SUP 650 MG (TYLENOL) MG 04/23/2018 04/30/2018 PRN Q4H ONDANSETRON VIAL INJ 4 MG/2CC (ZOFRAN 2CC VIAL) MG 04/23/2018 04/30/2018 PRN Q4H ALUM/MAG/SIMETH 30CC LIQ (MYLANTA PLUS) cc 04/23/2018 05/03/2018 PRN Q4H GUAIFENESIN - DM LIQ (ROBITUSSIN DM) MLS 04/23/2018 04/30/2018 PRN Q4H METHYLPREDNISOLONE VIAL INJ 125 MG/2CC (SOLU-MEDROL VIAL) MG 04/23/2018 04/28/2018 Q8H&0600,1400,2200 RIVAROXABAN TAB 15 MG (XARELTO) MG 04/23/2018 04/30/2018 BID&0600,1800 GABAPENTIN CAP 100 MG (NEURONTIN) MG 04/23/2018 04/30/2018 TID&0800,1400,2000 Docusate sodium 100mg oral capsule (COLACE) 04/23/2018 05/23/2018 PRN BID DORZOLAMIDE EYE DROP OPT 2 % (TRUSOPT EYE DROP) drop 04/23/2018 05/07/2018 BID&0800,2000 RISPERIDONE TAB 1 MG (RISPERDAL) MG 04/23/2018 04/30/2018 TID&0800,1400,2000 IPRATROPIUM/ALBUTEROL INH SOLN (DUO-NEB INH SOLN) MLS 04/23/2018 05/03/2018 BID&0800,2000 LACTULOSE SYRUP LIQ 20 GM/30CC (CHRONULAC SYRUP) GM 04/23/2018 05/23/2018 BID&0800,2000 LATANOPROST OPHTH SOLUTION LIQ 0.005 % (XALATAN) drops 04/23/2018 04/29/2018 QHS&2100 MELATONIN TAB 3 MG (MELATONIN) MG 04/23/2018 04/29/2018 PRN QHS LORAZEPAM TAB 0.5 MG (ATIVAN) MG 04/23/2018 04/30/2018 PRN Q8H ALBUTEROL SVN 2.5MG/3CC LIQ 2.5 MG (PROVENTIL CARRIE 2.5MG/3CC) MG 04/24/2018 05/04/2018 PRN Q4H ATENOLOL TAB 50 MG (TENORMIN) MG 04/24/2018 05/23/2018 BID&0800,2000 DIVALPROEX ER TAB 500 MG (DEPAKOTE ER) MG 04/24/2018 04/30/2018 Daily&0900 LATANOPROST OPHTH SOLUTION LIQ 0.005 % (XALATAN) drops 04/24/2018 04/30/2018 Daily&0900 BISACODYL TAB 5 MG (DULCOLAX) MG 04/24/2018 04/30/2018 PRN Daily FUROSEMIDE TAB 20 MG (LASIX) MG 04/24/2018 04/30/2018 Daily&0900 POLYETHYLENE GLYCOL POWDER UD PWD (MIRALAX 17GM UNIT DOSE PAKS) gm 04/24/2018 04/30/2018 Daily&0900 BISACODYL SUPPOS 10 MG (DULCOLAX SUPPOS) MG 04/24/2018 04/30/2018 PRN Daily ATENOLOL TAB 50 MG (TENORMIN) MG 04/24/2018 05/23/2018 Daily&0900 MILK OF MAGNESIA LIQ ml 04/24/2018 05/23/2018 PRN Daily RISPERIDONE TAB 1 MG (RISPERDAL) MG 04/24/2018 05/11/2018 TID&0800,1400,2000 HALOPERIDOL VIAL INJ 5 MG/CC (HALDOL 1CC VIAL) MG 04/24/2018 04/24/2018 PRN ONCE DIVALPROEX ER TAB 500 MG (DEPAKOTE ER) MG 04/24/2018 04/26/2018 QHS&2100 HALOPERIDOL VIAL INJ 5 MG/CC (HALDOL 1CC VIAL) MG 04/24/2018 04/24/2018 PRN ONCE LORAZEPAM 1CC VIAL INJ 2 MG/CC (ATIVAN VIAL) MG 04/24/2018 04/24/2018 PRN ONCE LORAZEPAM 1CC VIAL INJ 2 MG/CC (ATIVAN VIAL) MG 04/24/2018 04/24/2018 PRN ONCE RISPERIDONE CONSTA INJ 25 MG (RISPERDAL CONSTA) MG 04/25/2018 05/09/2018 Q2WK&0900 RIVAROXABAN TAB 15 MG (XARELTO) MG 04/25/2018 05/15/2018 BID&0800,2000 DIVALPROEX ER TAB 500 MG (DEPAKOTE ER) MG 04/27/2018 04/29/2018 QHS&2100 Divalproex 250mg extended release 24 hr (Depakote) 04/30/2018 05/02/2018 QHS&2100 RISPERIDONE CONSTA INJ 25 MG (RISPERDAL CONSTA) MG 05/04/2018 05/18/2018 Q2WK&0900 RISPERIDONE CONSTA INJ 25 MG (RISPERDAL CONSTA) MG 05/04/2018 05/04/2018 EVERY 14 Day&1421 RIVAROXABAN TAB 10 MG (XARELTO) MG 05/16/2018 06/14/2018 Daily&0900 HALOPERIDOL TAB 5 MG (HALDOL) MG 06/11/2018 06/11/2018 ONCE&1700 LORAZEPAM TAB 1 MG (ATIVAN) MG 06/11/2018 07/11/2018 PRN Q4H Ziprasidone IM recon soln 20mg/mL vial (Geodon) MG 06/11/2018 06/11/2018 ONCE&1845 HALOPERIDOL TAB 5 MG (HALDOL) MG 06/11/2018 07/11/2018 TID&0800,1400,2000 DIVALPROEX SPRINKLE CAP 125 MG (DEPAKOTE SPRINKLE) MG 06/11/2018 07/11/2018 BID&0800,1999 DORZOLAMIDE EYE DROP OPT 2 % (TRUSOPT EYE DROP) drop 06/11/2018 07/11/2018 BID&0800,1999 RIVAROXABAN TAB 10 MG (XARELTO) MG 06/11/2018 07/11/2018 BID&0800,2000 HYDROCODONE/APAP 5MG/325MG TAB 5 MG/325MG (RUSSELL-TAB 5/325) TAB 06/11/2018 07/11/2018 TID&0800,1400,2000 LATANOPROST OPHTH SOLUTION LIQ 0.005 % (XALATAN) drops 06/11/2018 07/10/2018 QHS&2100 ACETAMINOPHEN ORAL TABLET 325mg(Tylenol) MG 06/11/2018 07/11/2018 PRN Q8H ACETAMINOPHEN SUPPOS SUP 650 MG (TYLENOL) MG 06/11/2018 07/11/2018 PRN Q8H ALUM/MAG/SIMETH 30CC LIQ (MYLANTA PLUS) cc 06/12/2018 07/12/2018 PRN Q4H Ziprasidone IM recon soln 20mg/mL vial (Geodon) MG 06/12/2018 06/12/2018 ONCE&0758 CALMOSEPTINE OINT TUBE (RISAMINE OINT) wyatt 06/12/2018 06/18/2018 PRN QID LOPERAMIDE CAP 2 MG (IMMODIUM) MG 06/12/2018 07/12/2018 PRN QID LACTULOSE SYRUP LIQ 20 GM/30CC (CHRONULAC SYRUP) GM 06/12/2018 07/11/2018 BID&0800,2000 LORAZEPAM TAB 1 MG (ATIVAN) MG 06/12/2018 07/11/2018 Daily&0900 POLYETHYLENE GLYCOL POWDER UD PWD (MIRALAX 17GM UNIT DOSE PAKS) gm 06/12/2018 07/11/2018 Daily&0900 BISACODYL SUPPOS 10 MG (DULCOLAX SUPPOS) MG 06/12/2018 07/12/2018 PRN Daily MORPHINE SULFATE ORAL CARRIE LIQ 20 MG/CC MG 06/12/2018 07/12/2018 PRN Daily MILK OF MAGNESIA LIQ ml 06/12/2018 07/12/2018 PRN Daily HALOPERIDOL TAB 5 MG (HALDOL) MG 06/12/2018 06/13/2018 TID&0800,1400,2000 HALOPERIDOL DECANOATE INJ 100 MG/CC (HALDOL DECANOATE IM) MG 06/12/2018 06/12/2018 ONCE&1400 HALOPERIDOL TAB 5 MG (HALDOL) MG 06/12/2018 06/12/2018 ONCE&2000 LATANOPROST OPHTH SOLUTION LIQ 0.005 % (XALATAN) drops 06/12/2018 07/11/2018 QHS&2100 HALOPERIDOL TAB 5 MG (HALDOL) MG 06/13/2018 06/19/2018 BID&0800,2000 POLYETHYLENE GLYCOL POWDER UD PWD (MIRALAX 17GM UNIT DOSE PAKS) gm 06/13/2018 06/23/2018 PRN Q3H SENNA CONC/DOCUSATE TAB (SENOKOT S) TAB 06/13/2018 07/13/2018 BID&0800,2000 LACTULOSE SYRUP LIQ 20 GM/30CC (CHRONULAC SYRUP) GM 06/13/2018 07/13/2018 PRN BID OLANZAPINE DISSOLVABLE TAB 10 MG (ZYPREXA ZYDIS) MG 06/14/2018 06/16/2018 PRN Daily HALOPERIDOL DECANOATE INJ 100 MG/CC (HALDOL DECANOATE IM) MG 06/15/2018 06/15/2018 ONCE&1200 HALOPERIDOL TAB 5 MG (HALDOL) MG 06/20/2018 06/21/2018 BID&0800,2000 HALOPERIDOL DECANOATE INJ 100 MG/CC (HALDOL DECANOATE IM) MG 06/22/2018 07/06/2018 Q1WK&0900 Problems Date Dx Coded Attending Type Code Diagnosis Diagnosed By 11/16/2016 DAVID LEDEZMA MD D72.819 Decreased white blood cell count, unspecified 11/16/2016 DAVID LEDEZMA MD F02.80 Dementia in [facility] diseases classd elswhr w/o behavrl disturb 11/16/2016 [...] Personal history of (healed) traumatic fracture 09/14/2017 KITR AKERS MD Ot F01.50 VASCULAR DEMENTIA WITHOUT BEHAVIORAL DIS 09/14/2017 KIRT AKERS MD Ot 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, UN 09/14/2017 KIRT AKERS MD, Ot 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 09/14/2017 KIRT AKERS MD, Ot 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 09/15/2017 KIRT AKERS MD Ot F01.50 VASCULAR DEMENTIA WITHOUT BEHAVIORAL DIS 09/15/2017 DELPHINE COMER, KIRT Lowe Ot 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, UN 09/15/2017 DELPHINE COMER, KIRT Lowe Ot 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 09/15/2017 DELPHINE COMER, KIRT Lowe Ot 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 09/27/2017 JAILYN, [...] JAILYN, ASHLEY W E78.5 HYPERLIPIDEMIA, UNSPECIFIED 10/03/2017 JAILYN, ASHLEY W F01.51 VASCULAR DEMENTIA WITH BEHAVIORAL DISTURBANCE 10/03/2017 JAILYN, ASHLEY W F22 DELUSIONAL DISORDERS 10/03/2017 JAILYN, ASHLEY A F33.3 MAJOR DEPRESSV DISORDER, RECURRENT, SEVERE W PSYCH SYMPTOMS 10/03/2017 JAILYN, ASHLEY W F41.9 ANXIETY DISORDER, UNSPECIFIED 10/03/2017 JAILYN, ASHLEY W I10 ESSENTIAL (PRIMARY) HYPERTENSION 10/03/2017 JAILYN, ASHLEY W K59.09 OTHER CONSTIPATION 01/10/2018 NAHID DO, MO K Ot E78.00 PURE HYPERCHOLESTEROLEMIA, UNSPECIFIED 01/10/2018 NAHID DO, MO K Ot F01.51 VASCULAR DEMENTIA WITH BEHAVIORAL DISTUR 01/10/2018 NAHID DO MO K Ot F32.9 MAJOR DEPRESSIVE DISORDER, SINGLE EPISOD 01/10/2018 NAHID DO, MO K Ot F41.9 ANXIETY DISORDER, UNSPECIFIED 01/10/2018 NAHID DO, MO K Ot I10 ESSENTIAL (PRIMARY) HYPERTENSION 01/10/2018 NAHID DO, MO K Ot R45.1 RESTLESSNESS AND AGITATION 01/10/2018 NAHID DO, MO K Ot Z87.19 PERSONAL HISTORY OF OTHER DISEASES OF 01/12/2018 NAHID DO, OM K Ot E78.00 PURE HYPERCHOLESTEROLEMIA, UNSPECIFIED 01/12/2018 NAHID DO, MO K Ot F01.51 VASCULAR DEMENTIA WITH BEHAVIORAL DISTUR 01/12/2018 NAHID DOADALBERTOA K Ot F32.9 MAJOR DEPRESSIVE DISORDER, SINGLE EPISOD 01/12/2018 NAHID DO, MO K Ot F41.9 ANXIETY DISORDER, UNSPECIFIED 01/12/2018 NAHID DO, MO K Ot I10 ESSENTIAL (PRIMARY) HYPERTENSION 01/12/2018 NAHID DO, MO K Ot R45.1 RESTLESSNESS AND AGITATION 01/12/2018 NAHID DO, MO K Ot Z87.19 PERSONAL HISTORY OF OTHER DISEASES OF 04/09/2018 TARTAGLIONE, KIRT W 294.21 DEMENTIA, UNSPECIFIED, IN CONDITIONS CLASSIFIED ELSEWHERE WITH BEHAVIORAL DISTURBANCE 04/09/2018 TARTAGLIONE, KIRT W 780.1 HALLUCINATIONS 04/09/2018 TARTAGLIONE, KIRT W F03.91 UNSPECIFIED DEMENTIA WITH BEHAVIORAL DISTURBANCE 04/09/2018 TARTAGLIONE, KIRT W R44.3 HALLUCINATIONS, UNSPECIFIED 04/17/2018 TARTAGLIONE, KIRT W 294.21 DEMENTIA, UNSPECIFIED, IN CONDITIONS CLASSIFIED ELSEWHERE WITH BEHAVIORAL DISTURBANCE 04/17/2018 TARTAGLIONE, KIRT W 295.70 SCHIZOAFFECTIVE DISORDER, UNSPECIFIED 04/17/2018 TARTAGLIONE, KIRT W 564.00 CONSTIPATION, UNSPECIFIED 04/17/2018 TARTAGLIONE, KIRT W 780.1 HALLUCINATIONS 04/17/2018 TARTAGLIONE, KIRT W F03.91 UNSPECIFIED DEMENTIA WITH BEHAVIORAL DISTURBANCE 04/17/2018 TARTAGLIONE, KIRT W F25.0 SCHIZOAFFECTIVE DISORDER, BIPOLAR TYPE 04/17/2018 TARTAGLIONE, KIRT W K59.09 OTHER CONSTIPATION 04/17/2018 TARTAGLIONE, KIRT W R44.0 AUDITORY HALLUCINATIONS 04/17/2018 TARTAGLIONE, KIRT W R44.3 HALLUCINATIONS, UNSPECIFIED 04/23/2018 TARTAGLIONE, KIRT W 296.34 04/23/2018 TARTAGLIONE, KIRT W 401.0 MALIGNANT ESSENTIAL HYPERTENSION 04/23/2018 TARTAGLIONE, KIRT W 477.9 ALLERGIC RHINITIS, CAUSE UNSPECIFIED 04/23/2018 TARTAGLIONE, KIRT W 491.20 OBSTRUCTIVE CHRONIC BRONCHITIS, WITHOUT EXACERBATION 04/23/2018 TARTAGLIONE, KIRT W 564.00 CONSTIPATION, UNSPECIFIED 04/23/2018 TARTAGLIONE, KIRT W 780.60 FEVER, UNSPECIFIED 04/23/2018 TARTAGLIONE, KIRT W F33.3 MAJOR DEPRESSV DISORDER, RECURRENT, SEVERE W PSYCH SYMPTOMS 04/23/2018 TARTAGLIONE, KIRT W I10 ESSENTIAL (PRIMARY) HYPERTENSION 04/23/2018 TARTAGLIONE, KIRT W J30.9 ALLERGIC RHINITIS, UNSPECIFIED 04/23/2018 TARTAGLIONE, KIRT W J44.9 CHRONIC OBSTRUCTIVE PULMONARY DISEASE, UNSPECIFIED 04/23/2018 TARTAGLIONE, KIRT W K59.00 CONSTIPATION, UNSPECIFIED 04/23/2018 TARTAGLIONE, KIRT W R50.9 FEVER, UNSPECIFIED 04/25/2018 Becka Saucedo W 294.21 DEMENTIA, UNSPECIFIED, IN CONDITIONS CLASSIFIED ELSEWHERE WITH BEHAVIORAL DISTURBANCE 04/25/2018 Becka Saucedo W 415.19 04/25/2018 Becka Saucedo W 780.60 FEVER, UNSPECIFIED 04/25/2018 Becka Saucedo W 780.97 ALTERED MENTAL STATUS 04/25/2018 Becka Saucedo W 785.0 TACHYCARDIA, UNSPECIFIED 04/25/2018 Becka Saucedo W 786.07 WHEEZING 04/25/2018 Becka Saucedo W 799.02 04/25/2018 Becka Saucedo W F03.91 UNSPECIFIED DEMENTIA WITH BEHAVIORAL DISTURBANCE 04/25/2018 Lewis Becka W I26.99 OTHER PULMONARY EMBOLISM WITHOUT ACUTE COR PULMONALE 04/25/2018 Becka Saucedo W R00.0 TACHYCARDIA, UNSPECIFIED 04/25/2018 SaucedoJeremii W R06.2 WHEEZING 04/25/2018 SaucedoJeremii W R09.02 HYPOXEMIA 04/25/2018 SaucedoBecka hawkins W R41.82 ALTERED MENTAL STATUS, UNSPECIFIED 04/25/2018 Becka Saucedo W R50.9 FEVER, UNSPECIFIED 06/11/2018 TARTAGLKIRT DOLAN W 290.41 VASCULAR DEMENTIA, WITH DELIRIUM 06/11/2018 TARTAGLKIRT DOLAN W F01.51 VASCULAR DEMENTIA WITH BEHAVIORAL DISTURBANCE 06/21/2018 TARTAGLKIRT DOLAN W 275.42 HYPERCALCEMIA 06/21/2018 TARTAGLROLA DOLANUA W 290.41 VASCULAR DEMENTIA, WITH DELIRIUM 06/21/2018 TARTAGLKIRT DOLAN W 295.70 06/21/2018 TARTAGLIONEROLAUA W 296.20 06/21/2018 TARTAGLIONEROLAUA W 300.00 06/21/2018 TARTAGLKIRT DOLAN W 564.00 CONSTIPATION, UNSPECIFIED 06/21/2018 TARTAGLKIRT DOLAN W E83.52 HYPERCALCEMIA 06/21/2018 TARTAGLROLA DOLANUA W F01.51 VASCULAR DEMENTIA WITH BEHAVIORAL DISTURBANCE 06/21/2018 PHONGTAGLKIRT DOLAN W F25.0 SCHIZOAFFECTIVE DISORDER, BIPOLAR TYPE 06/21/2018 TARTAGLKIRT DOLAN W F32.9 MAJOR DEPRESSIVE DISORDER, SINGLE EPISODE, UNSPECIFIED 06/21/2018 TARTAGLKIRT DOLAN W F41.9 ANXIETY DISORDER, UNSPECIFIED 06/21/2018 PHONGTAGLKIRT DOLAN W K59.09 OTHER CONSTIPATION 06/21/2018 PHONGTAGLKIRT DOLAN W V12.55 PERSONAL HISTORY OF PULMONARY EMBOLISM 06/21/2018 KIRT FORD W V58.61 LONG-TERM (CURRENT) USE OF ANTICOAGULANTS 06/21/2018 KIRT FORD Z79.01 EDI CONSULTANT (CURRENT) USE OF ANTICOAGULANTS 06/21/2018 KIRT FORD Z86.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 06/27/2018 GABRIELLE MACDONALD DO Ot M25.511 PAIN IN RIGHT SHOULDER 07/17/2018 GABRIELLE MACDONALD DO Ot M25.511 PAIN IN RIGHT SHOULDER Procedures Code [place] [address] ROUTINE VENIPUNCTURE JET AMOR LAMAS 10/14/2016 95480 COMPREHEN METABOLIC PANEL JET AMOR LAMAS 10/14/2016 46441 URINALYSIS AUTO W/SCOPE JET BAINAMOR Brown 10/14/2016 81714 ASSAY OF FREE THYROXINE AMOR OTT 10/14/2016 37946 ASSAY THYROID STIM HORMONE JET AMOR LAMAS 10/14/2016 16825 COMPLETE CBC W/AUTO DIFF WBC JET BAINAMOR Brown 10/14/2016 15284 CULTURE AEROBIC IDENTIFY JET AMOR LAMAS 10/14/2016 96616 CULTURE SCREEN ONLY JET AMOR LAMAS 10/14/2016 01427 URINE CULTURE/COLONY COUNT JET AMOR LAMAS 10/14/2016 29049 MICROBE SUSCEPTIBLE MARLENI JET BAINAMOR Brown 10/14/2016 15400 ELECTROCARDIOGRAM TRACING JET AMOR LAMAS 10/14/2016 70685 EMERGENCY DEPT VISIT JET BAINAMOR Brown 10/14/2016 Results Test Result Range Complete blood [...] Automated erythrocyte mean corpuscular hemoglobin concentration measurement (mass/volume) 32 g/dL 32-36 Automated erythrocyte distribution width ratio 14.1 % 10.0- 14.5 Automated blood platelet count (count/volume) 138 10*3/uL [...] Blood monocytes automated count (number/volume) 0.5 10*3 0.0- 1.0 Automated eosinophil count 0.2 10*3/uL 0.0-0.3 Automated [...] Serum or plasma aspartate aminotransferase measurement (enzymatic activity/volume) 18 U/L 5-34 Serum or plasma alanine aminotransferase measurement (enzymatic activity/volume) 12 U/L 0-55 Serum or plasma protein measurement (mass/volume) 7.7 g/dL 6.4-8.2 Serum or plasma albumin measurement (mass/volume) 4.0 g/dL 3.2-4.5 Complete urinalysis with reflex to culture - 09/13/17 23:30 Urine color determination BUSTER NRG Urine clarity determination CLEAR NRG Urine pH measurement by test strip 5 5-9 Specific gravity of urine by test strip 1.025 1.016-1.022 Urine protein assay by test strip, semi-quantitative [...] sediment leukocyte count by microscopy (number/high power field) NONE NRG Bacteria detection in urine sediment [...] 5-8.5 Urine-Protein Negative Negative Urine-RBC Rare/HPF Urine-Specific [place] 1.015 1.000-1.030 Urine-WBC 0-2/HPF Urobilinogen 0.2 0.2-1.0 CBC with Auto Diff - 09/28/17 05:25 Baso% 0.20 % 0.00-2.50 Eos 0.2 K/uL 0.0-0.7 Eos% 4.8 % 0.0-7.0 Hct 41.4 % 42.0-52.0 Hgb 13.5 g/dL 14.0-17.0 Lym 2.11 K/uL 0.60-3.40 Lym% 46.3 % 10.0-50.0 MCH 29.2 pg 27.0-31.2 MCHC 32.6 g/dL 32.0-36.0 MCV 89.6 fL 80.0-97.0 [place]% 12.7 % 0.0-12.0 MPV 12.6 fL 7.4-10.0 [place]% 36.0 % 37.0-80.0 Plt 121 K/uL 150-400 RBC 4.62 M/uL 4.20-5.40 RDW 13.5 % 11.6-14.8 WBC 4.56 K/uL 5.00-10.00 Elder 1.64 K/uL 2.00-6.90 [place] 0.6 K/uL 0.0-0.9 Baso 0.0 K/uL 0.0-0.2 Comprehensive Metabolic Panel - 04/09/18 17:26 Albumin 4.2 g/dL 3.6-5.1 ALP 49 U/L 35-130 ALT 14 U/L 6-45 Anion Gap 13 6-14 AST 20 U/L 2-40 BUN 18 mg/dL 5-25 Calcium 10.0 mg/dL 8.3-10.4 Chloride 107 mmol/L 95-114 CO2 25 mEq/L 22-33 Creat 1.12 mg/dL 0.50-1.50 eGFR 65 mL/min/1.73m2 >59 Globulin 4.0 g/dL 2.3-3.5 Glucose 100 mg/dL 70-110 [place]sm[place] 293 280-295 Potassium 3.9 mmol/L 3.5-5.3 Sodium 141 mmol/L 134-148 TBil 0.3 mg/dL 0.2-1.2 TP 8.2 g/dL 6.0-8.3 MRSA Screen - 04/09/18 17:26 FINAL CULTURE RESULTS MRSA Negative Nasal Culture MEDIA PLATED Setup at 17:47 on 04/09/2018 EKG - 04/09/18 20:06 EKG Complete Valproic Acid - 04/13/18 05:30 Valproic Acid 48.5 ug/mL 55.0-105.0 Valproic Acid - 04/20/18 14:35 Valproic Acid 61.1 ug/mL 55.0-105.0 Urinalysis - 04/22/18 09:54 Icotest N/A Negative Urine Casts Hyaline Urine Volume Urine Volume Sufficient (10mL) Urine-Appearance Clear Clear Urine-Bacteria Trace Urine-Bilirubin Negative Negative Urine-Blood Negative Negative Urine-Color Yellow Colorless-Lt. Yellow Urine-Epithelial Cells None Seen Urine-Glucose Negative Negative Urine-Ketones 1+ Negative Urine-Leukocytes Negative Negative Urine-Nitrite Negative Negative Urine-Other Culture to follow Urine-pH 5.5 5-8.5 Urine-Protein 1+ Negative Urine-RBC Few/HPF Urine-Specific [place] 1.015 1.000-1.030 Urine-WBC Few/HPF Urobilinogen 0.2 E.U./dL 0.2-1.0 Lactic Acid - 04/23/18 06:58 Lactic Acid 9.8 mg/dL 4.5-19.8 Blood Culture - 04/23/18 06:58 PRELIM CULTURE RESULTS Blood Culture Negative, No Growth Day 1 FINAL CULTURE RESULTS Blood Culture Negative, No Growth Day 5 MEDIA PLATED Setup at 08:34 on 04/23/2018, Blood Culture Media Position A01 CULTURE SOURCE venipuncture Arterial Blood Gas - 04/23/18 07:52 Base 0.00 mmol/L 1.80-4.20 HCO3 25 mmol/L 20-31 O2 Sat 96 2L % 95-100 pCO2 38 mm/Hg 35-45 pH 7.42 7.35-7.45 PO2 81 mm/Hg 80-95 Blood Culture - 04/23/18 08:32 PRELIM CULTURE RESULTS Blood Culture Negative, No Growth Day 1 FINAL CULTURE RESULTS Blood Culture Negative, No Growth Day 5 MEDIA PLATED Setup at 08:38 on 04/23/2018, Blood Culture Media Position [id number] CULTURE SOURCE L Wrist D-Dimer - 04/23/18 12:44 DDimer 52839.00 ng/mL 21.00-229.00 Urine Culture - 04/23/18 14:11 PRELIM CULTURE RESULTS No Growth 24 hours FINAL CULTURE RESULTS No Growth 48 hours MEDIA PLATED Setup at 13:30 on 04/23/2018 CULTURE SOURCE Cath Comprehensive Metabolic Panel - 04/24/18 06:47 Albumin 3.5 g/dL 3.6-5.1 ALP 30 U/L 35-130 ALT 12 U/L 6-45 Anion Gap 16 6-14 AST 28 U/L 2-40 BUN 14 mg/dL 5-25 Calcium 8.4 mg/dL 8.3-10.4 Chloride 108 mmol/L 95-114 CO2 23 mEq/L 22-33 Creat 0.95 mg/dL 0.50-1.50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
[2018-09-11 12:28] LABS: BASOPHILS % (AUTO) 0 % (0-10); EOSINOPHILS % (AUTO) 0 % (0-10); HEMATOCRIT 47 % (40-54); HEMOGLOBIN 15.4 G/DL (13.3-17.7); LYMPHOCYTES # (AUTO) 2.2 X 10^3 (1.0-4.0); LYMPHOCYTES % (AUTO) 21 % (12-44); MEAN CORPUSCULAR HEMOGLOBIN 29 PG (25-34); MEAN CORPUSCULAR HGB CONC 33 G/DL (32-36); MEAN CORPUSCULAR VOLUME 87 FL (80-99); MEAN PLATELET VOLUME 12.9 FL (7.4-10.4); MONOCYTES # (AUTO) 0.7 X 10^3 (0.0-1.0); MONOCYTES % (AUTO) 7 % (0-12); NEUTROPHILS # (AUTO) 7.7 X 10^3 (1.8-7.8); NEUTROPHILS % (AUTO) 72 % (42-75); PLATELET COUNT 149 10^3/uL (130-400); RED CELL DISTRIBUTION WIDTH 14.3 % (10.0-14.5); WHITE BLOOD COUNT 10.7 10^3/uL (4.3-11.0)
[2018-09-11] MEDS ORDERED: LACTATED RINGERS 1,000 ML IV SCH (12:30)
--- NOTE | 2018-09-11 12:41 | ED General ---
General Chief Complaint: Altered Mental Status Stated Complaint: DEHYDRATED Nursing Triage Note: STAFF FROM [facility] STATES PT HAS HAD AMS SINCE MONDAY, USUALLY EATS AND WALKS BUT HAS NOT BEEN EATING OR GETTING AROUND. PT WAS BROUGHT TO DR. MACDONALD'S OFFICE AND THE DR TOLD THEM TO BRING PT TO THE ER... Nursing Sepsis Screen: No Definite Risk Source of Information: Patient, Caregiver, Usp Records Exam Limitations: Physical Impairments History of Present Illness Date Seen by Provider: Sep 11, 2018 Time Seen by Provider: 11:53 Initial Comments Here from snf after being evaluated at his doctor's office. Patient is noted to have changed mental status. Usually he eats and walks okay. He does have advanced dementia. He was doing okay on Monday but over the last 2 days has declined. He was seen in his doctor's office today and his primary care doctor, Dr. Macdonald, was concerned because of the change in mental status and function and symptom here for further evaluation. Here he is without distress but is weak appearing and not really talking much. He does follow simple commands and answer simple questions. Caregivers who know him well state that this current mental status is not typical for the patient. No reported fevers. Decreased urination noted. No diarrhea reported. Timing/Duration: 2-3 Days, Getting Worse Severity: Moderate Associated Systoms: Cough; No Fever/Chills, No Nausea/Vomiting, No Shortness of Air; Weakness Allergies and Home Medications Allergies Coded Allergies: No Known Drug Allergies (Unverified , 01/10/18) Home Medications Atenolol 50 Mg Tablet, 50 MG PO DAILY, (Reported) Atorvastatin Calcium 10 Mg Tablet, 10 MG PO HS, (Reported) Docusate Sodium 100 Mg Capsule, 100 MG PO BID, (Reported) Duloxetine HCl 30 Mg Capsule.dr, 30 MG PO BID, (Reported) Furosemide 20 Mg Tablet, 20 MG PO DAILY, (Reported) Gabapentin 100 Mg Capsule, 100 MG PO TID, (Reported) Melatonin 5 Mg Capsule, 5 MG PO HS, (Reported) Quetiapine Fumarate 200 Mg Tablet, 200 MG PO BID, (Reported) Sennosides 8.6 Mg Tablet, 17.2 MG PO HS, (Reported) Patient Home Medication List Home Medication List Reviewed: Yes Review of Systems Review of Systems Constitutional: see HPI; No chills, No fever Respiratory: cough Gastrointestinal: No diarrhea, No vomiting Unable to complete review of systems due to underlying dementia and current medical status. 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 oz. 81.683139nb; BMI Method:Stated General Appearance: No Apparent Distress, Thin HEENT: PERRL/EOMI, Other (mucous membranes dry) Neck: Non Tender, Supple Respiratory: Lungs Clear, Normal Breath Sounds Cardiovascular: Regular Rate, Rhythm, No Murmur Gastrointestinal: Non Tender, Soft Back: Normal Inspection, No CVA Tenderness, No Vertebral Tenderness Extremity: Non Tender, No Pedal Edema Neurologic/Psychiatric: Other (wakes to verbal and answers simple questions and follows simple commands.) Skin: Normal Color, Warm/Dry Progress/Results/Core Measures Suspected Sepsis Recent Fever Within 48 Hours: No Infection Criteria Present: None New/Unexplained Altered Menta: Yes Sepsis Screen: No Definite Risk SIRS Temperature:98.2 Pulse: 94 Respiratory Rate: 18 Laboratory Tests 09/11/18 12:10: White Blood Count 10.7 Blood Pressure 114 /80 Mean: 91 Laboratory Tests 09/11/18 12:10: Creatinine 1.21, Platelet Count 149, Total Bilirubin 0.8 Results/Orders Lab Results Laboratory Tests Test 09/11/18 12:10 7/9/19 14:11 Range/Units White Blood Count 10.7 4.3-11.0 10^3/uL Red Blood Count 5.37 4.35-5.85 10^6/uL Hemoglobin 15.4 13.3-17.7 G/DL Hematocrit 47 40-54 % Mean Corpuscular Volume 87 80-99 FL Mean Corpuscular Hemoglobin 29 25-34 PG Mean Corpuscular Hemoglobin Concent 33 32-36 G/DL Red Cell Distribution Width 14.3 10.0-14.5 % Platelet Count 149 130-400 10^3/uL Mean Platelet Volume 12.9 H 7.4-10.4 FL Neutrophils (%) (Auto) 72 42-75 % Lymphocytes (%) (Auto) 21 12-44 % Monocytes (%) (Auto) 7 0-12 % Eosinophils (%) (Auto) 0 0-10 % Basophils (%) (Auto) 0 0-10 % Neutrophils # (Auto) 7.7 1.8-7.8 X 10^3 Lymphocytes # (Auto) 2.2 1.0-4.0 X 10^3 Monocytes # (Auto) 0.7 0.0-1.0 X 10^3 Eosinophils # (Auto) 0.0 0.0-0.3 10^3/uL Basophils # (Auto) 0.0 0.0-0.1 10^3/uL Sodium Level 145 135-145 MMOL/L Potassium Level 3.4 L 3.6-5.0 MMOL/L Chloride Level 114 H 98-107 MMOL/L Carbon Dioxide Level 20 L 21-32 MMOL/L Anion Gap 11 5-14 MMOL/L Blood Urea Nitrogen 22 H 7-18 MG/DL Creatinine 1.21 0.60-1.30 MG/DL Estimat Glomerular Filtration Rate > 60 BUN/Creatinine Ratio 18 Glucose Level 120 H 70-105 MG/DL Calcium Level 10.5 H 8.5-10.1 MG/DL Corrected Calcium 8.5-10.1 MG/DL Total Bilirubin 0.8 0.1-1.0 MG/DL Aspartate Amino Transf (AST/SGOT) 22 5-34 U/L Alanine Aminotransferase (ALT/SGPT) 13 0-55 U/L Alkaline Phosphatase 44 40-136 U/L C-Reactive Protein High Sensitivity 1.16 H 0.00-0.50 MG/DL Total Protein 8.6 H 6.4-8.2 GM/DL Albumin 4.6 H 3.2-4.5 GM/DL Urine Color YELLOW Urine Clarity CLEAR Urine pH 6 5-9 Urine Specific [place] 1.020 1.016-1.022 Urine Protein 2+ H NEGATIVE Urine Glucose (UA) NEGATIVE NEGATIVE Urine Ketones 3+ H NEGATIVE Urine Nitrite NEGATIVE NEGATIVE Urine Bilirubin NEGATIVE NEGATIVE Urine Urobilinogen 1 NORMAL MG/DL Urine Leukocyte Esterase 1+ H NEGATIVE Urine RBC (Auto) NEGATIVE NEGATIVE Urine RBC NONE /HPF Urine WBC 0-2 /HPF Urine Squamous Epithelial Cells 2-5 /HPF Urine Crystals NONE /LPF Urine Bacteria TRACE /HPF Urine Casts NONE /LPF Urine Mucus SMALL H /LPF Urine Culture Indicated NO My Orders Orders - BILLY VÁZQUEZ MD Chest 1 View, Ap/Pa Only (09/11/18 12:32) Hs C Reactive Protein (09/11/18 12:10) Ct Head Wo (09/11/18 14:58) Vital Signs/I&O 09/11/18 11:37 Temp 98.2 Pulse 94 Resp 18 B/P (MAP) 114/80 (91) Pulse Ox 98 O2 Delivery Room Air Capillary Refill : Less Than 3 Seconds Blood Pressure Mean: 91 Progress Note : Progress Note Seen and evaluated. Patient very difficult IV start. Finally obtained. Labs, UA, chest x-ray and LR 1 L bolus ordered. Monitor patient. Catheter UA obtained. Does appear to have dehydration. Mental status not changing with fluids. I did discuss the case with Dr. Macdonald at 1555. CT head does not show any acute findings. Given that the patient is still with altered mental status, patient will be admitted for rehydration and observation initially and we will adjust pending his response. Admit, observation status. jail Caregivers notified and are in agreement. Diagnostic Imaging Diagonstic Imaging: Xray Plain Films/CT/US/NM/MRI: chest Comments [facility] [place], [place] NAME: TERESA TAVARES [facility] REC#: [id number] PT STATUS: REG ER : 1950 PHYSICIAN: BILLY VÁZQUEZ MD ADMIT DATE: 09/11/18/ER Draft Date of Exam:09/11/18 CHEST 1 VIEW, AP/PA ONLY INDICATION: Altered mental status. Frontal chest obtained at 12:51 p.m. Heart and mediastinal silhouette are normal in appearance. The lungs are clear. There is no pneumothorax or pleural fluid. IMPRESSION: Negative chest. Dictated on workstation # [id number] Dict: 09/11/18 1310 Trans: 09/11/18 1313 [id number] Interpreted by: VIKI HI MD Electronically signed by: Diagonstic Imaging: CT Plain Films/CT/US/NM/MRI: head Comments [facility] [place] [place] NAME: TERESA TAVARES [facility] REC#: [id number] PT STATUS: REG ER : 1950 PHYSICIAN: BILLY VÁZQUEZ MD ADMIT DATE: 09/11/18/ER Draft Date of Exam:09/11/18 CT HEAD WO PROCEDURE: CT head without contrast. TECHNIQUE: Multiple contiguous axial images were obtained through the brain without the use of intravenous contrast. Auto Exposure Controls were utilized during the CT exam to meet ALARA standards for radiation dose reduction. INDICATION: Altered mental status. FINDINGS: No comparison available. There is generalized cerebral atrophy with ex vacuo dilation of the ventricles. Basilar cisterns are patent. Sales and white matter differentiation is normal. No intracranial hemorrhage is seen. No intra- or extra-axial fluid collections are seen. Orbits are normal. No fractures or osseous lesions are seen. Paranasal sinuses are normal. IMPRESSION: 1. No acute intracranial abnormality. Dictated on workstation # [id number] Dict: 09/11/18 1526 Trans: 09/11/18 1531 [id number] Interpreted by: JIMMY ROSARIO MD Electronically signed by: Departure Communication (Admissions) Time/Spoke to Admitting Phy: 15:55 Impression Primary Impression: Dehydration Additional Impression: Altered mental status Qualified Codes: R40.0 - Somnolence Disposition: ADMITTED INPATIENT Condition: Stable Admissions Decision to Admit Reason: Admit from ER (General) Decision to Admit/Date: Sep 11, 2018 Time/Decision to Admit Time: 15:55 Departure-Patient Inst. Referrals: GABRIELLE MACDONALD DO (PCP/Family) Primary Care Physician BILLY VÁZQUEZ MD Sep 11, 2018 12:41
[2018-09-11 12:49] LABS: ALANINE AMINOTRANSFERASE 13 U/L (0-55); ALBUMIN 4.6 GM/DL (3.2-4.5); ALKALINE PHOSPHATASE 44 U/L (40-136); BILIRUBIN,TOTAL 0.8 MG/DL (0.1-1.0); BUN/CREATININE RATIO 18; CALCIUM 10.5 MG/DL (8.5-10.1); CARBON DIOXIDE 20 MMOL/L (21-32); CHLORIDE 114 MMOL/L (98-107); CREATININE SERUM 1.21 MG/DL (0.60-1.30); GFR ESTIMATED > 60; GLUCOSE 120 MG/DL (70-105); POTASSIUM 3.4 MMOL/L (3.6-5.0); SODIUM 145 MMOL/L (135-145); TOTAL PROTEIN 8.6 GM/DL (6.4-8.2)
--- NOTE | 2018-09-11 13:14 | Diagnostic Imaging Report ---
INDICATION: Altered mental status. Frontal chest obtained at 12:51 p.m. Heart and mediastinal silhouette are normal in appearance. The lungs are clear. There is no pneumothorax or pleural fluid. IMPRESSION: Negative chest. Dictated by: Dictated on workstation # [id number]
[2018-09-11 14:17] LABS: BILIRUBIN,URINE NEGATIVE (NEGATIVE); CLARITY,URINE CLEAR; COLOR,URINE YELLOW; GLUCOSE, URINE (UA) NEGATIVE (NEGATIVE); KETONES,URINE 3+ (NEGATIVE); LEUKOCYTE ESTERASE ,URINE 1+ (NEGATIVE); NITRITE,URINE NEGATIVE (NEGATIVE); PH,URINE 6 (5-9); PROTEIN,URINE 2+ (NEGATIVE); UROBILINOGEN,URINE 1 MG/DL (NORMAL)
[2018-09-11 14:26] LABS: BACTERIA,URINE TRACE /HPF; WBC,URINE 0-2 /HPF
--- NOTE | 2018-09-11 15:32 | Diagnostic Imaging Report ---
PROCEDURE: CT head without contrast. TECHNIQUE: Multiple contiguous axial images were obtained through the brain without the use of intravenous contrast. Auto Exposure Controls were utilized during the CT exam to meet ALARA standards for radiation dose reduction. INDICATION: Altered mental status. FINDINGS: No comparison available. There is generalized cerebral atrophy with ex vacuo dilation of the ventricles. Basilar cisterns are patent. Slaes and white matter differentiation is normal. No intracranial hemorrhage is seen. No intra- or extra-axial fluid collections are seen. Orbits are normal. No fractures or osseous lesions are seen. Paranasal sinuses are normal. IMPRESSION: 1. No acute intracranial abnormality. Dictated by: Dictated on workstation # [id number]
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
[2018-09-11 17:23] VITALS: BP 132/55
[2018-09-11] MEDS ORDERED: ONDANSETRON 4 MG/2 ML (SDV) Z0FRAN IV PRN (17:45)
[2018-09-11] MEDS ORDERED: CATHETER FLUSH 10 ML SYR IV PRN (17:45)
--- NOTE | 2018-09-11 17:45 | NUR ---
TERESA TAVARES Alexandro admitted to room 408-1, with an admitting diagnosis of dehydration, mental status change, on 09/11/18 from ED via wheelchair, accompanied by staff. TERESA TAVARES introduced to surroundings, call light, bed controls, phone, TV, temperature control, lights, meal times, smoking policy, visitor policy, side rail policy, bathrooms and showers. Patient Rights given to patient in the handbook. TERESA TAVARES verbalizes understanding that [facility] is not responsible for the loss or damage to any personal effects or valuables that are kept in the patients possession during their hospitalization. The following Patient Care Plans were discussed with the patient: Discharge Planning, medications, pain management, and dehydration. TERESA TAVARES verbalizes understanding of Interdisciplinary Patient Education. Patient and/or family were informed about the Rapid Response Team and its purpose.
[2018-09-11] MEDS: LACTATED RINGERS 1,000 ML IV SCH (18:10)
[2018-09-11 20:13] VITALS: BP 130/77
[2018-09-12 00:17] VITALS: BP 119/72
[2018-09-12 03:59] VITALS: BP 109/67
[2018-09-12] MEDS: LACTATED RINGERS 1,000 ML IV SCH (04:35)
[2018-09-12 06:35] LABS: BASOPHILS % (AUTO) 0 % (0-10); EOSINOPHILS # (AUTO) 0.1 10^3/uL (0.0-0.3); EOSINOPHILS % (AUTO) 1 % (0-10); HEMATOCRIT 40 % (40-54); HEMOGLOBIN 12.9 G/DL (13.3-17.7); LYMPHOCYTES # (AUTO) 2.9 X 10^3 (1.0-4.0); LYMPHOCYTES % (AUTO) 37 % (12-44); MEAN CORPUSCULAR HEMOGLOBIN 28 PG (25-34); MEAN CORPUSCULAR HGB CONC 33 G/DL (32-36); MEAN CORPUSCULAR VOLUME 86 FL (80-99); MONOCYTES # (AUTO) 0.9 X 10^3 (0.0-1.0); MONOCYTES % (AUTO) 11 % (0-12); NEUTROPHILS # (AUTO) 4.1 X 10^3 (1.8-7.8); NEUTROPHILS % (AUTO) 51 % (42-75); PLATELET COUNT 139 10^3/uL (130-400); RED CELL DISTRIBUTION WIDTH 14.5 % (10.0-14.5)
[2018-09-12 06:59] LABS: ALANINE AMINOTRANSFERASE 12 U/L (0-55); ALBUMIN 3.6 GM/DL (3.2-4.5); ALKALINE PHOSPHATASE 34 U/L (40-136); BILIRUBIN,TOTAL 0.9 MG/DL (0.1-1.0); BUN/CREATININE RATIO 19; CALCIUM 9.3 MG/DL (8.5-10.1); CARBON DIOXIDE 17 MMOL/L (21-32); CHLORIDE 114 MMOL/L (98-107); GFR ESTIMATED > 60; GLUCOSE 96 MG/DL (70-105); POTASSIUM 3.6 MMOL/L (3.6-5.0); SODIUM 142 MMOL/L (135-145); TOTAL PROTEIN 7.3 GM/DL (6.4-8.2)
--- NOTE | 2018-09-12 07:49 | History & Physicial ---
History of Present Illness History of Present Illness Reason for visit/HPI Patient resident of [facility]. Since Monday patient not eating or walking. Patient declining since Monday. Patient has dementia. Previous to Monday patient is walking around and eating good. Patient sent out to the emergency room. Patient has dehydration. CAT scan of the head negative area Patient not communicating yesterday. Patient is talking today and denies everything Date of Admission Sep 11, 2018 at 16:03 Time Seen by a Provider: 07:44 I consulted on this patient on 09/12/18 07:43 Attending Physician Agustin Macdonald DO Admitting Physician Agustin Macdonald DO Consult Allergies and Home Medications Allergies Coded Allergies: No Known Drug Allergies (Unverified , 01/10/18) Home Medications Atenolol 50 Mg Tablet, 50 MG PO DAILY, (Reported) Atorvastatin Calcium 10 Mg Tablet, 10 MG PO HS, (Reported) Docusate Sodium 100 Mg Capsule, 100 MG PO BID, (Reported) Duloxetine HCl 30 Mg Capsule.dr, 30 MG PO BID, (Reported) Furosemide 20 Mg Tablet, 20 MG PO DAILY, (Reported) Gabapentin 100 Mg Capsule, 100 MG PO TID, (Reported) Melatonin 5 Mg Capsule, 5 MG PO HS, (Reported) Quetiapine Fumarate 200 Mg Tablet, 200 MG PO BID, (Reported) Sennosides 8.6 Mg Tablet, 17.2 MG PO HS, (Reported) Patient Home Medication List Home Medication List Reviewed: No Past Oploutr-Fqeqlt-Dbuidy Hx Patient Social History Alcohol Use: Denies Use Recreational Drug Use: No Smoking Status: Unknown if Ever Smoked Recent Foreign Travel: No Contact w/other who traveled: No Recent Hopitalizations: No Recent Infectious Disease Expo: No Immunizations Up To Date Tetanus Booster (TDap): Unknown Seasonal Allergies Seasonal Allergies: Yes Surgeries No (UNKNOWN) Respiratory Yes (chronic rhinitis) Cardiovascular Yes Chronic Edema/Swelling, High Cholesterol, Hypertension Neurological Yes (Vascular dementia w/behavorial disturbance) Dementia, Neuropathy Gastrointestinal Yes Chronic Constipation Musculoskeletal Yes (Osteoarthritis) Arthritis HEENT History of HEENT Disorders: Yes HEENT Disorders: Glaucoma Psychosocial History of Psychiatric Problem: Yes (DEMENTIA WITH BEHAVIOR DISTURBANCE/OUTBURSTS; MOOD DISORDER) Behavioral Health Disorders: Anxiety, Depression Family Medical History Significant Family History: No Pertinent Family Hx Review of Systems Constitutional: no symptoms reported, other (Patient dry) EENTM: no symptoms reported Respiratory: no symptoms reported Cardiovascular: no symptoms reported Gastrointestinal: no symptoms reported Genitourinary: no symptoms reported Physical Exam Vital Signs Vital Signs - First Documented 09/11/18 11:37 Temp 98.2 Pulse 94 Resp 18 B/P (MAP) 114/80 (91) Pulse Ox 98 O2 Delivery Room Air Capillary Refill : Less Than 3 Seconds Height, Weight, BMI Height: 5'7.00" Weight: 158lbs. 8.0oz. 71.309294oz; 24.8 BMI Method:Stated General Appearance: No Apparent Distress, WD/WN Eyes: Bilateral Eye Normal Inspection HEENT: Normal ENT Inspection Neck: Full Range of Motion, Normal Inspection Respiratory: Chest Non Tender, No Accessory Muscle Use, No Respiratory Distress Cardiovascular: Regular Rate, Rhythm, No Murmur Gastrointestinal: Non Tender Assessment/Plan Assessment and Plan Acute mental status change. Dementia. Dehydration. Admission Diagnosis Admission Status: Observation Clinical Quality Measures DVT/VTE Risk/Contraindication: Risk Factor Score Per Nursin RFS Level Per Nursing on Admit: 3=High AGUSTIN MACDONALD DO Sep 12, 2018 07:49
[2018-09-12 08:00] VITALS: BP 115/76
[2018-09-12] MEDS ORDERED: POLY17PO6 PO (09:24)
[2018-09-12] MEDS ORDERED: DORZ10DR27 OS (09:24)
[2018-09-12] MEDS ORDERED: MIRT30TA6 PO (09:24)
[2018-09-12] MEDS ORDERED: BISA10SU58 RC (09:24)
[2018-09-12] MEDS ORDERED: DORZ10DR27 OD (09:24)
[2018-09-12] MEDS ORDERED: ACET650S15 RC (09:24)
[2018-09-12] MEDS ORDERED: ACET250T3 PO (09:24)
[2018-09-12] MEDS ORDERED: MAGN400O7 PO (09:24)
[2018-09-12] MEDS ORDERED: SODI3.5O4 OU (09:24)
[2018-09-12] MEDS ORDERED: PRED5DRO24 OD (09:24)
[2018-09-12] MEDS ORDERED: LATA2.5D5 OU (09:24)
[2018-09-12] MEDS ORDERED: ACET325T38 PO (09:24)
[2018-09-12] MEDS ORDERED: RIVA10TA PO (09:24)
[2018-09-12] MEDS ORDERED: BRIM5DRO OD (09:24)
[2018-09-12] MEDS ORDERED: BRIM5DRO OS (09:24)
[2018-09-12] MEDS ORDERED: HYDR-3812 PO (09:24)
[2018-09-12] MEDS ORDERED: HALO100V4 IM (09:29)
--- NOTE | 2018-09-12 09:31 | NUR ---
UPDATED MED REC WITH MAR AND ORDER SUMMARY REPORT FROM [facility].
[2018-09-12 12:00] VITALS: BP 130/81
--- NOTE | 2018-09-12 14:05 | NUR ---
Pastoral care visit.
[2018-09-12 16:46] VITALS: BP 132/81
[2018-09-12] MEDS ORDERED: HALOPERIDOL 5 MG (HALDOL) TAB PO ONE (20:00)
[2018-09-12] MEDS ORDERED: HALOPERIDOL 2 MG (HALDOL) TABLET PO NR (20:00)
[2018-09-12] MEDS: HALOPERIDOL 0.5 MG (HALDOL) TAB PO NR ×2 (20:16→21:24)
[2018-09-12 20:33] VITALS: BP 147/88
[2018-09-12] MEDS ORDERED: HALOPERIDOL 5 MG/ML (HALDOL) AMP IM ONE (21:30)
[2018-09-13] VITALS: BP 146/76
--- NOTE | 2018-09-13 02:53 | NUR ---
ASSUMED CARE OF PT AT THIS TIME. RESTING IN BED NO DISTRESS NOTED. WILL CONTINUE TO MONITOR.
--- NOTE | 2018-09-13 03:22 | NUR ---
1939- PT CONFUSED, ATTEMPTS TO GET OUT OF BED AND LEAVE ROOM, STATES HE NEEDS TO GO HOME TO [place]. THIS NURSE ATTEMPTS TO RE-ORIENTATE PT MULTIPLE TIMES, PT REFUSES TO STAY IN HOSPITAL. PCT STAYS IN ROOM TO RE-ORIENTATE PATIENT. DR. MACDONALD CALLED AT 1952, DR ORDERED TO DISCONNECT IV FLUIDS, 3MG PO HALDOL. PT SON CALLED AT 1999, PT STILL ATTEMPTS TO LEAVE AFTER TALKING TO SON, PT STATES SOMEONE IS GOING TO PICK HIM UP. 2024- PT REFUSES HALDOL, STATES HE FEELS FINE AND DOESN'T NEED MEDICATION. PATIENT'S SON CALLED AGAIN AT 2029. PT SITS IN CHAIR AND CALMS DOWN AFTER PHONE CALL. 2099- PATIENT ATTEMPTS TO LEAVE ROOM AGAIN, THIS NURSE AND PCT ATTEMPT TO REORIENTATE PT MULTIPLE TIMES. PATIENT INSIST ON LEAVING TO "CATCH HIS RIDE". PCT STAYS IN ROOM WITH PATIENT SO HE DOESN'T LEAVE. DR. MACDONALD CALLED AT 2111, 3MG IM HALDOL ORDERED. 2129- PATIENT SON IN ROOM WITH PATIENT AT THIS TIME. PATIENT IN BED RESTING. PATIENT'S SON REFUSED HALODOL INJECTION, STATING THAT PATIENT IS NOW CALM, SO HE SHOULDNT NEED THE MEDICATION.
[2018-09-13 06:08] LABS: HEMOGLOBIN 12.6 G/DL (13.3-17.7); MEAN PLATELET VOLUME 12.5 FL (7.4-10.4); RED CELL DISTRIBUTION WIDTH 14.3 % (10.0-14.5); WHITE BLOOD COUNT 7.2 10^3/uL (4.3-11.0)
[2018-09-13 06:22] LABS: BUN/CREATININE RATIO 13; CALCIUM 9.3 MG/DL (8.5-10.1); CARBON DIOXIDE 20 MMOL/L (21-32); CHLORIDE 114 MMOL/L (98-107); CREATININE SERUM 0.83 MG/DL (0.60-1.30); GFR ESTIMATED > 60; GLUCOSE 106 MG/DL (70-105); POTASSIUM 2.8 MMOL/L (3.6-5.0); SODIUM 143 MMOL/L (135-145)
[2018-09-13 08:00] VITALS: BP 117/68
[2018-09-13] MEDS ORDERED: KCL 10 MEQ TAB (MICRO K) PO NR (08:15)
--- NOTE | 2018-09-13 08:18 | Progress Note (SOAP) ---
Subjective Time Seen by a Provider: 08:16 Subjective/Events-last exam Patient doing better this morning. Patient agitated last night. Patient is morning rested comfortably and talking. To discharge today Objective Exam Vital Signs Date Time Temp Pulse Resp B/P (MAP) Pulse Ox O2 Delivery O2 Flow Rate FiO2 09/13/18 00:00 98.8 88 20 146/76 (99) 98 Room Air 09/12/18 20:33 99.3 104 22 147/88 (107) 99 Room Air 09/12/18 20:00 Room Air 09/12/18 16:46 98.4 99 20 132/81 (98) 98 Room Air 09/12/18 12:00 98.1 69 18 130/81 (97) 99 Room Air I & O 09/13/18 07:00 Intake Total 950 ml Balance 950 ml Capillary Refill : Less Than 3 Seconds General Appearance: No Apparent Distress, WD/WN HEENT: Normal ENT Inspection Neck: Full Range of Motion, Normal Inspection Respiratory: Lungs Clear, No Accessory Muscle Use, No Respiratory Distress Cardiovascular: Regular Rate, Rhythm, No Murmur Gastrointestinal: non tender, soft Results Lab Laboratory Tests 09/13/18 05:40 Laboratory Tests 09/13/18 05:40: White Blood Count 7.2, Red Blood Count 4.42, Hemoglobin 12.6L, Hematocrit 38L, Mean Corpuscular Volume 85, Mean Corpuscular Hemoglobin 29, Mean Corpuscular Hemoglobin Concent 34, Red Cell Distribution Width 14.3, Platelet Count 139, Mean Platelet Volume 12.5H, Sodium Level 143, Potassium Level 2.8L, Chloride Level 114H, Carbon Dioxide Level 20L, Anion Gap 9, Blood Urea Nitrogen 11, Creatinine 0.83, Estimat Glomerular Filtration Rate > 60, BUN/Creatinine Ratio 13, Glucose Level 106H, Calcium Level 9.3 Assessment/Plan Assessment/Plan Assess & Plan/Chief Complaint Dehydration Mental status change. Alzheimer's. Patient awake and talking. [facility] Clinical Quality Measures Admission Status Admission Dx Acute mental status change. Dementia. Dehydration. DVT/VTE Risk/Contraindication: Risk Factor Score Per Nursin RFS Level Per Nursing on Admit: 3=High Contraindications-Pharm: Other *list below* GABRIELLE MACDONALD DO Sep 13, 2018 08:18
--- NOTE | 2018-09-13 08:21 | Discharge Inst-Skilled Nursing ---
Discharge Inst-Skilled NF Patient Instructions Patient Problems: Altered mental status. Dehydration. Consult/Follow Up/Orders Follow Up Appt.: Monday at 11 a.m. Skilled NF Admit to: [facility] Certification (SNF) I certify that SNF services are required to be given on an inpatient basis because of the above named patient's need for senior care care on a continuing basis for the conditions(s) for which he/she was receiving inpatient hospital services prior to his/her transfer to the SNF. Oxygen Delivery Method: Room Air Discharge Diet: No Restrictions New & Resume Previous Orders Agustin Macdonald Sep 13, 2018 08:20 AGUSTIN MACDONALD DO Sep 13, 2018 08:21
--- NOTE | 2018-09-13 11:54 | NUR ---
CM/SS patient will discharge this day back to [facility]. They are aware they need to bring clean clothes for the patient. Discharge information sent to [facility]. They will transport this day at 1430. RNing updated.
--- NOTE | 2018-09-14 07:20 | Clinic Account Progress/Dx ---
Clinic Account Progress/Dx DIAGNOSIS: Time Seen by Provider: 07:19 Dehydration. Acute mental status change. Dementia. Alzheimer's. Essential hypertension. Hyperlipidemia. GABRIELLE MACDONALD DO Sep 14, 2018 07:20
== END 2018-09-13 08:19 ==
LOC: EDUNIT# 10:49 → ER 10:52 → UNDOADMOB 16:03 → 4TH 16:03 → UNDODISOB 09-13 14:45
PROVIDERS: ADMIT Family Medicine; ATTEND Family Medicine
DX: E86.0 Dehydration (principal); G30.9 Alzheimer's disease, unspecified; F02.81 Dementia in other diseases classified elsewhere, unspecified severity, with behavioral disturbance; Z66 Do not resuscitate; E78.00 Pure hypercholesterolemia, unspecified; I10 Essential (primary) hypertension; F01.50 Vascular dementia, unspecified severity, without behavioral disturbance, psychotic disturbance, mood disturbance, and anxiety; G62.9 Polyneuropathy, unspecified; K59.09 Other constipation; F41.9 Anxiety disorder, unspecified; F32.9 Major depressive disorder, single episode, unspecified; H40.9 Unspecified glaucoma; M19.91 Primary osteoarthritis, unspecified site; R40.0 Somnolence; Z79.899 Other long term (current) drug therapy
CPT/HCPCS: 36415; 70450; 71045; 80048; 80053; 81000; 85025; 85027; 86141; 96360; G0378

== ENCOUNTER 2019-10-01 10:58 | Emergency (ER) | payer MEDICARE, MEDICAID ==
[~2019-10-01] VITALS: Ht 180 cm; Wt 90.7 kg
[~2019-10-01 10:58] MED LIST changes: +ACET250T3 PO; +ACET325T38 PO; +ACET650S15 RC; +ACHD5005 PO; +AMOX-358 PO; +BISA10SU58 RC; +BRIM5DRO OD; +BRIM5DRO OS; +DORZ10DR27 OD; +DORZ10DR27 OS; +HALO100V4 IM; +LATA2.5D5 OS; +MAGN400O7 PO; +MIRT15TA PO; +MIRT30TA6 PO; +POLY17PO6 PO; +PRED5DRO24 OD; +RIVA10TA PO; +RIVA1TAB PO; -SENN-141 PO; +SENN-234 PO; +SODI3.5O4 OU
[2019-10-01 12:13] LABS: BASOPHILS % (AUTO) 0 % (0-10); EOSINOPHILS # (AUTO) 0.1 10^3/uL (0.0-0.3); EOSINOPHILS % (AUTO) 2 % (0-10); HEMATOCRIT 46 % (40-54); HEMOGLOBIN 14.5 G/DL (13.3-17.7); LYMPHOCYTES # (AUTO) 1.7 X 10^3 (1.0-4.0); LYMPHOCYTES % (AUTO) 29 % (12-44); MEAN CORPUSCULAR HEMOGLOBIN 28 PG (25-34); MEAN CORPUSCULAR HGB CONC 32 G/DL (32-36); MEAN CORPUSCULAR VOLUME 90 FL (80-99); MEAN PLATELET VOLUME 13.3 FL (7.4-10.4); MONOCYTES # (AUTO) 0.9 X 10^3 (0.0-1.0); MONOCYTES % (AUTO) 16 % (0-12); NEUTROPHILS # (AUTO) 3.1 X 10^3 (1.8-7.8); NEUTROPHILS % (AUTO) 53 % (42-75); PLATELET COUNT 106 10^3/uL (130-400); RED CELL DISTRIBUTION WIDTH 14.5 % (10.0-14.5); WHITE BLOOD COUNT 5.9 10^3/uL (4.3-11.0)
--- NOTE | 2019-10-01 12:13 | Diagnostic Imaging Report ---
EXAMINATION: Portable erect AP chest at 1151h. INDICATION: Shortness of breath The heart size is within normal limits and stable when compared to 09/04/2019. The lungs remain generally clear and well aerated. There is still no evidence for failure, pneumonia or for a pleural effusion. The mediastinum is not widened. The osseous structures are intact. IMPRESSION: Stable chest. There has been no adverse change since the prior exam. Dictated by: Dictated on workstation # [id number]
--- OUTSIDE RECORDS SUMMARY | 2019-10-01 13:18 | XMS REPORT | Continuity of Care Document ---
Author Organization Unknown Address Unknown Phone Unavailable Allergies Active Description Code Type Severity Reaction Onset Reported/Identified Relationship to Patient Clinical Status Yes NO KNOWN DRUG ALLERGIES UNKNOWN NO KNOWN DRUG ALLERG Yes No Known Drug Allergies [id number] Drug Allergy Unknown N/A 01/10/2018 Medications Medication Packaging Start Date St op Date Route Dosage Sig HALOPERIDOL TAB 5 MG (HALDOL) MG 09/27/2017 10/27/2017 PRN Q6H LORAZEPAM TAB 2 MG (ATIVAN) MG 09/27/2017 10/04/2017 PRN Q6H HALOPERIDOL VIAL INJ 5 MG/CC (HALDOL 1CC V IAL) MG 09/27/2017 10/04/2017 PRN Q6H LORAZEPAM 1CC VIAL INJ 2 MG/CC (ATIVAN VIA L) MG 09/27/2017 10/04/2017 PRN Q6H GABAPENTIN CAP 100 MG (NEURONTIN) MG 09/27/2017 10/04/2017 TID&0800,1400,2000 QUETIAPINE TAB 100 MG (SEROQUEL) MG 09/27/2017 10/04/2017 BID&0800,2000 Docusate sodium 100mg oral capsule (COLACE ) MG 09/27/2017 10/27/2017 BID&0800,2000 DIVALPROEX ER TAB [...] 10/28/2017 PRN QID LACTULOSE SYRUP LIQ 20 GM/30 CC (CHRONULAC SYRUP) GM 09/28/2017 10/27/2017 BID&0800,2000 FUROSEMIDE TAB 20 MG (LASIX) MG 09/28/2017 10/04/2017 Daily&0900 BISACODYL SUPPOS 10 MG (DULCOLAX SUPPOS) MG 09/28/2017 10/28/2017 PRN Daily ATENOLOL TAB 50 MG (TENORMIN) MG 09/28/2017 10/27/2017 Daily&0900 MILK OF MAGNESIA LIQ ml 09/28/2017 10/28/2017 PRN Daily Divalproex 250mg extended r elease 24 hr (Depakote) MG 09/29/2017 10/28/2017 QHS&2100 HALOPERIDOL TAB 5 MG (HALDOL) MG 04/09/2018 05/09/2018 PRN Q6H LORAZEPAM TAB 1 MG (ATIVAN) MG 04/09/2018 04/16/2018 PRN Q6H QUETIAPINE TAB 100 MG (SEROQUEL) MG 04/09/2018 04/09/2018 ONCE&0900 QUETIAPINE TAB 25 MG (SEROQUEL) MG 04/09/2018 04/09/2018 ONCE&0900 HALOPERIDOL VIAL INJ 5 MG/CC (HALDOL 1CC V IAL) MG 04/09/2018 04/16/2018 PRN Q6H LORAZEPAM 1CC VIAL INJ 2 MG/CC (ATIVAN VIA L) MG 04/09/2018 04/16/2018 PRN Q6H GABAPENTIN CAP 100 MG (NEURONTIN) MG 04/09/2018 05/09/2018 TID&0800,1400,2000 Docusate sodium 100mg oral capsule (COLACE ) 04/09/2018 05/09/2018 BID&0800,2000 DORZOLAMIDE EYE DROP OPT 2 % (TRUSOPT EYE DROP) drop 04/09/2018 05/09/2018 BID&0800,2000 SIMVASTATIN TAB 10 MG (ZOCOR) MG 04/09/2018 05/08/2018 QPM&2000 LACTULOSE SYRUP LIQ 20 GM/30 CC (CHRONULAC SYRUP) GM 04/09/2018 05/09/2018 BID&0800,2000 ACETAMINOPHEN ORAL TABLET 325mg(Tylenol) MG 04/09/2018 05/09/2018 PRN EVERY 6 Hour QUETIAPINE TAB 100 MG (SEROQUEL) MG 04/09/2018 05/08/2018 QHS&2100 DIVALPROEX ER TAB 500 MG (DEPAKOTE ER) MG 04/09/2018 05/08/2018 QHS&2100 Divalproex 250mg extended r elease 24 hr (Depakote) 04/09/2018 05/08/2018 QHS&2099 LATANOPROST OPHTH SOLUTION L IQ 0.005 % (XALATAN) drops 04/09/2018 05/08/2018 QHS&2100 TRAZODONE TAB 50 MG (DESYREL) MG 04/09/2018 05/09/2018 PRN QHS POLYETHYLENE GLYCOL POWDER U D PWD (MIRALAX 17GM UNIT DOSE PAKS) gm 04/09/2018 04/19/2018 PRN Q3H SENNA CONC/DOCUSATE TAB (SENOKOT S) TAB 04/09/2018 05/08/2018 QHS&2100 MELATONIN TAB 3 MG (MELATONIN) MG 04/09/2018 05/08/2018 QHS&2100 CALMOSEPTINE OINT TUBE (RISAMINE OINT) wyatt 04/09/2018 04/16/2018 PRN QID LOPERAMIDE CAP 2 MG (IMMODIUM) MG 04/09/2018 04/16/2018 PRN QID ALUM/MAG/SIMETH 30CC LIQ (MYLANTA PLUS) cc 04/09/2018 04/19/2018 PRN Q4H LACTULOSE SYRUP LIQ 20 GM/30 CC (CHRONULAC SYRUP) GM 04/10/2018 05/09/2018 BID&0800,2000 MILK [...] (TENORMIN) MG 04/10/2018 05/09/2018 Daily&0900 MILK OF MAGNESIA LIQ ml 04/10/2018 05/10/2018 PRN Daily OLANZAPINE IM VIAL INJ 10 MG /VIAL (ZYPREXA IM VIAL) MG 04/10/2018 04/10/2018 ONCE&1038 [...] MG 04/20/2018 05/20/2018 PRN QID MILK OF MAGNESIA LIQ ml 04/20/2018 05/20/2018 PRN BID POLYETHYLENE GLYCOL POWDER U D PWD (MIRALAX 17GM UNIT DOSE PAKS) gm 04/20/2018 05/20/2018 PRN Q3H BISACODYL SUPPOS 10 MG (DULCOLAX SUPPOS) MG 04/20/2018 05/20/2018 PRN Daily ALUM/MAG/SIMETH 30CC LIQ (MYLANTA PLUS) cc 04/20/2018 05/20/2018 PRN Q4H OLANZAPINE IM VIAL INJ 10 MG /VIAL (ZYPREXA IM VIAL) MG 04/20/2018 04/20/2018 ONCE&1149 RISPERIDONE TAB 0.5 MG (RISPERDAL) MG 04/20/2018 05/19/2018 Daily&0900 WATER STERILE PF INJ ml 04/20/2018 04/20/2018 ONCE&1201 GABAPENTIN CAP 100 MG (NEURONTIN) MG 04/20/2018 05/19/2018 TID&0800,1400,2000 DIVALPROEX ER TAB 500 MG (DEPAKOTE ER) MG 04/20/2018 05/19/2018 TID&0800,1400,2000 RISPERIDONE CONSTA INJ 25 MG (RISPERDAL CO NSTA) MG 04/20/2018 04/20/2018 ONCE&1419 Docusate sodium 100mg oral capsule (COLACE ) 04/20/2018 05/19/2018 BID&0800,2000 SIMVASTATIN TAB 10 MG (ZOCOR) MG 04/20/2018 05/19/2018 QPM&1999 RISPERIDONE TAB 1 MG (RISPERDAL) MG 04/20/2018 05/11/2018 BID&0800,2000 LACTULOSE SYRUP LIQ 20 GM/30 CC (CHRONULAC SYRUP) GM 04/20/2018 05/19/2018 BID&0800,2000 DIVALPROEX ER TAB 500 MG (DEPAKOTE ER) MG 04/20/2018 05/19/2018 QHS&2100 LATANOPROST OPHTH SOLUTION L IQ 0.005 % (XALATAN) drops 04/20/2018 05/19/2018 QHS&2100 [...] MLS 04/21/2018 04/24/2018 PRN Q4H IPRATROPIUM/ALBUTEROL INH SO LN (DUO-NEB INH SOLN) MLS 04/21/2018 04/24/2018 BID&0800,2000 [...] 0 Hour Metoprolol IV soln 5mg/5cc vial (Lopressor ) MG 04/23/2018 04/30/2018 PRN EVERY 0 Hour ACETAMINOPHEN ORAL TABLET 325mg(Tylenol) MG 04/23/2018 04/23/2018 PRN ONCE ALPRAZOLAM TAB 0.25 MG (XANAX) MG 04/23/2018 05/03/2018 PRN Q6H CLONIDINE TAB 0.1 MG (CATAPRES) MG 04/23/2018 04/30/2018 PRN Q6H CALCIUM CARBONATE TAB 500 MG (TUMS) MG 04/23/2018 04/30/2018 PRN Q6H DIPHENHYDRAMINE CAP 25 MG (BENADRYL) MG 04/23/2018 04/30/2018 PRN Q6H HYDROCODONE/APAP 5MG/325MG T AB 5 MG/325MG (RUSSELL-TAB 5/325) TAB 04/23/2018 05/03/2018 PRN Q6H Piperacillin-tazobactam 3.37 5 Gm IV recon soln (Zosyn) GM 04/23/2018 [...] 04/30/2018 TID&0800,1400,2000 Docusate sodium 100mg oral capsule (COLACE ) 04/23/2018 05/23/2018 PRN BID DORZOLAMIDE EYE DROP OPT 2 % (TRUSOPT EYE DROP) drop 04/23/2018 05/07/2018 BID&0800,2000 RISPERIDONE TAB 1 MG (RISPERDAL) MG 04/23/2018 04/30/2018 TID&0800,1400,2000 IPRATROPIUM/ALBUTEROL INH SO LN (DUO-NEB INH SOLN) MLS 04/23/2018 05/03/2018 BID&0800,2000 LACTULOSE SYRUP LIQ 20 GM/30 CC (CHRONULAC SYRUP) GM 04/23/2018 05/23/2018 BID&0800,2000 LATANOPROST OPHTH SOLUTION L IQ 0.005 % (XALATAN) drops 04/23/2018 04/29/2018 QHS&2100 [...] MG 04/24/2018 04/30/2018 Daily&0900 LATANOPROST OPHTH SOLUTION L IQ 0.005 % (XALATAN) drops 04/24/2018 04/30/2018 Daily&0900 BISACODYL TAB 5 MG (DULCOLAX) MG 04/24/2018 04/30/2018 PRN Daily FUROSEMIDE TAB 20 MG (LASIX) MG 04/24/2018 04/30/2018 Daily&0900 POLYETHYLENE GLYCOL POWDER U D PWD (MIRALAX 17GM UNIT DOSE PAKS) gm 04/24/2018 04/30/2018 Daily&0900 BISACODYL SUPPOS 10 MG (DULCOLAX SUPPOS) MG 04/24/2018 04/30/2018 PRN Daily ATENOLOL TAB 50 MG (TENORMIN) MG 04/24/2018 05/23/2018 Daily&0900 MILK OF MAGNESIA LIQ ml 04/24/2018 05/23/2018 PRN Daily RISPERIDONE TAB 1 MG (RISPERDAL) MG 04/24/2018 05/11/2018 TID&0800,1400,2000 HALOPERIDOL VIAL INJ 5 MG/CC (HALDOL 1CC V IAL) MG 04/24/2018 04/24/2018 PRN ONCE DIVALPROEX ER TAB 500 MG (DEPAKOTE ER) MG 04/24/2018 04/26/2018 QHS&2100 HALOPERIDOL VIAL INJ 5 MG/CC (HALDOL 1CC V IAL) MG 04/24/2018 04/24/2018 PRN ONCE LORAZEPAM 1CC VIAL INJ 2 MG/CC (ATIVAN VIA L) MG 04/24/2018 04/24/2018 PRN ONCE LORAZEPAM 1CC VIAL INJ 2 MG/CC (ATIVAN VIA L) MG 04/24/2018 04/24/2018 PRN ONCE RISPERIDONE CONSTA INJ 25 MG (RISPERDAL CO NSTA) MG 04/25/2018 05/09/2018 Q2WK&0900 RIVAROXABAN TAB 15 MG (XARELTO) MG 04/25/2018 05/15/2018 BID&0800,2000 DIVALPROEX ER TAB 500 MG (DEPAKOTE ER) MG 04/27/2018 04/29/2018 QHS&2100 Divalproex 250mg extended r elease 24 hr (Depakote) 04/30/2018 05/02/2018 QHS&2100 RISPERIDONE CONSTA INJ 25 MG (RISPERDAL CO NSTA) MG 05/04/2018 05/18/2018 Q2WK&0900 RISPERIDONE CONSTA INJ 25 MG (RISPERDAL CO NSTA) MG 05/04/2018 05/04/2018 EVERY 14 Day&1421 RIVAROXABAN TAB 10 MG (XARELTO) MG 05/16/2018 06/14/2018 Daily&0900 HALOPERIDOL TAB 5 MG (HALDOL) MG 06/11/2018 06/11/2018 ONCE&1700 LORAZEPAM TAB 1 MG (ATIVAN) MG 06/11/2018 07/11/2018 PRN Q4H Ziprasidone IM recon soln 20mg/mL vial (Ge odon) MG 06/11/2018 06/11/2018 ONCE&1845 HALOPERIDOL TAB 5 MG (HALDOL) MG 06/11/2018 07/11/2018 TID&0800,1400,2000 DIVALPROEX SPRINKLE CAP 125 MG (DEPAKOTE SPRINKLE) MG 06/11/2018 07/11/2018 BID&0800,2000 DORZOLAMIDE EYE DROP OPT 2 % (TRUSOPT EYE DROP) drop 06/11/2018 07/11/2018 BID&0800,2000 RIVAROXABAN TAB 10 MG (XARELTO) MG 06/11/2018 07/11/2018 BID&0800,2000 HYDROCODONE/APAP 5MG/325MG T AB 5 MG/325MG (RUSSELL-TAB 5/325) TAB 06/11/2018 07/11/2018 TID&0800,1400,2000 LATANOPROST OPHTH SOLUTION L IQ 0.005 % (XALATAN) drops 06/11/2018 07/10/2018 QHS&2100 ACETAMINOPHEN ORAL TABLET 325mg(Tylenol) MG 06/11/2018 07/11/2018 PRN Q8H ACETAMINOPHEN SUPPOS SUP 650 MG (TYLENOL) MG 06/11/2018 07/11/2018 PRN Q8H ALUM/MAG/SIMETH 30CC LIQ (MYLANTA PLUS) cc 06/12/2018 07/12/2018 PRN Q4H Ziprasidone IM recon soln 20mg/mL vial (Ge odon) MG 06/12/2018 06/12/2018 ONCE&0758 CALMOSEPTINE OINT TUBE (RISAMINE OINT) wyatt 06/12/2018 06/18/2018 PRN QID LOPERAMIDE CAP 2 MG (IMMODIUM) MG 06/12/2018 07/12/2018 PRN QID LACTULOSE SYRUP LIQ 20 GM/30 CC (CHRONULAC SYRUP) GM 06/12/2018 07/11/2018 BID&0800,2000 LORAZEPAM TAB 1 MG (ATIVAN) MG 06/12/2018 07/11/2018 Daily&0900 POLYETHYLENE GLYCOL POWDER U D PWD (MIRALAX 17GM UNIT DOSE PAKS) gm 06/12/2018 07/11/2018 Daily&0900 BISACODYL SUPPOS 10 MG (DULCOLAX SUPPOS) MG 06/12/2018 07/12/2018 PRN Daily MORPHINE SULFATE ORAL CARRIE LIQ 20 MG/CC MG 06/12/2018 07/12/2018 PRN Daily MILK OF MAGNESIA LIQ ml 06/12/2018 07/12/2018 PRN Daily HALOPERIDOL TAB 5 MG (HALDOL) MG 06/12/2018 06/13/2018 TID&0800,1400,2000 HALOPERIDOL DECANOATE INJ 10 0 MG/CC (HALDOL DECANOATE IM) MG 06/12/2018 06/12/2018 ONCE&1400 HALOPERIDOL TAB 5 MG (HALDOL) MG 06/12/2018 06/12/2018 ONCE&2000 LATANOPROST OPHTH SOLUTION L IQ 0.005 % (XALATAN) drops 06/12/2018 07/11/2018 QHS&2100 HALOPERIDOL TAB 5 MG (HALDOL) MG 06/13/2018 06/19/2018 BID&0800,2000 POLYETHYLENE GLYCOL POWDER U D PWD (MIRALAX 17GM UNIT DOSE PAKS) gm 06/13/2018 06/23/2018 PRN Q3H SENNA CONC/DOCUSATE TAB (SENOKOT S) TAB 06/13/2018 07/13/2018 BID&0800,2000 LACTULOSE SYRUP LIQ 20 GM/30 CC (CHRONULAC SYRUP) GM 06/13/2018 07/13/2018 PRN BID OLANZAPINE DISSOLVABLE TAB 1 0 MG (ZYPREXA ZYDIS) MG 06/14/2018 06/16/2018 PRN Daily HALOPERIDOL DECANOATE INJ 10 0 MG/CC (HALDOL DECANOATE IM) MG 06/15/2018 06/15/2018 ONCE&1200 HALOPERIDOL TAB 5 MG (HALDOL) MG 06/20/2018 06/21/2018 BID&0800,2000 HALOPERIDOL DECANOATE INJ 10 0 MG/CC (HALDOL DECANOATE IM) MG 06/22/2018 07/06/2018 Q1WK&0900 Problems Date Dx Coded Attending Type Code Diagnosis Diagnosed By 11/16/2016 DAVID LEDEZMA MD D72.819 Decreased white blood cell count, unspecified 11/16/2016 DAVID LEDEZMA MD F02.80 Dementia in [facility] diseases classd elswhr w/o behavrl dis turb 11/16/2016 DAVID LEDEZMA MD F10.10 Alcohol abuse, [...] of (healed) traumatic fracture 09/14/2017 KIRT AKERS MD, Ot F01.50 VASCULAR DEMENTIA WITHOUT BEHAVIORAL DIS 09/14/2017 KIRT AKERS MD, Ot 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, UN 09/14/2017 KIRT AKERS MD, Ot 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 09/14/2017 BRUEGGEMANN MD, KIRT T Ot 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 09/15/2017 DELPHINE COMER, KIRT Lowe Ot F01.50 VASCULAR DEMENTIA WITHOUT BEHAVIORAL DIS [...] W I10 ESSENTIAL (PRIMARY) HYPERTENSION 10/03/2017 JAILYN, ANDY W K59.09 OTHER CONSTIPATION 01/10/2018 NAHID DO, MO K Ot E78.00 PURE HYPERCHOLESTEROLEMIA, UNSPECIFIED 01/10/2018 NAHID DO, MO K Ot F01.51 VASCULAR DEMENTIA WITH BEHAVIORAL DISTUR 01/10/2018 NAHID DO, MO K Ot F32.9 MAJOR DEPRESSIVE DISORDER, [...] VASCULAR DEMENTIA WITH BEHAVIORAL DISTUR 01/12/2018 NAHID DO, MO K Ot F32.9 MAJOR DEPRESSIVE DISORDER, SINGLE EPISOD 01/12/2018 NAHID DO, MO K Ot F41.9 ANXIETY DISORDER, UNSPECIFIED 01/12/2018 NAHID DO, MO K Ot I10 ESSENTIAL (PRIMARY) HYPERTENSION 01/12/2018 NAHID DO, MO K Ot R45.1 RESTLESSNESS AND AGITATION 01/12/2018 NAHID DO, MO K Ot Z87.19 PERSONAL HISTORY OF OTHER DISEASES OF 04/09/2018 TARTAGLIONEROLAUA W 294 .21 DEMENTIA, UNSPECIFIED, IN CONDITIONS CLASSIFIED ELSEWHERE WITH BEHAVIORAL DISTURBANCE 04/09/2018 TARTAGLIONE, KIRT W 780 .1 HALLUCINATIONS 04/09/2018 TARTAGLIONE, KIRT W F03 .91 UNSPECIFIED DEMENTIA WITH BEHAVIORAL DISTURBANCE 04/09/2018 TARTAGLIONE, KIRT W R44 .3 HALLUCINATIONS, UNSPECIFIED 04/17/2018 TARTAGLIONE, KIRT W 294 .21 DEMENTIA, UNSPECIFIED, IN CONDITIONS CLASSIFIED ELSEWHERE WITH BEHAVIORAL DISTURBANCE 04/17/2018 TARTAGLIONE, KIRT W 295 .70 SCHIZOAFFECTIVE DISORDER, UNSPECIFIED 04/17/2018 TARTAGLIONEROLAUA W 564 .00 CONSTIPATION, UNSPECIFIED 04/17/2018 TARTAGLIONE, KIRT W 780 .1 HALLUCINATIONS 04/17/2018 TARTAGLIONE, KIRT W F03 .91 UNSPECIFIED DEMENTIA WITH BEHAVIORAL DISTURBANCE 04/17/2018 TARTAGLIONE, KIRT W F25 .0 SCHIZOAFFECTIVE DISORDER, BIPOLAR TYPE 04/17/2018 TARTAGLIONE, KIRT W K59 .09 OTHER CONSTIPATION 04/17/2018 TARTAGLIONE, KIRT W R44 .0 AUDITORY HALLUCINATIONS 04/17/2018 TARTAGLIONE, KIRT W R44 .3 HALLUCINATIONS, UNSPECIFIED 04/23/2018 TARTAGLIONE, KIRT W 296 .34 04/23/2018 TARTAGLIONE, KIRT W 401 .0 MALIGNANT ESSENTIAL HYPERTENSION 04/23/2018 TARTAGLIONE, KIRT W 477 .9 ALLERGIC RHINITIS, CAUSE UNSPECIFIED 04/23/2018 TARTAGLIONE, KIRT W 491 .20 OBSTRUCTIVE CHRONIC BRONCHITIS, WITHOUT EXACERBATION 04/23/2018 TARTAGLIONE, KIRT W 564 .00 CONSTIPATION, UNSPECIFIED 04/23/2018 TARTAGLIONE, KIRT W 780 .60 FEVER, UNSPECIFIED 04/23/2018 TARTAGLIONE, KITR W F33 .3 MAJOR DEPRESSV DISORDER, RECURRENT, SEVERE W PSYCH SYMPTOMS 04/23/2018 TARTAGLIONE, KIRT W I10 ESSENTIAL (PRIMARY) HYPERTENSION 04/23/2018 TARTAGLIONE, KIRT W J30 .9 ALLERGIC RHINITIS, UNSPECIFIED 04/23/2018 TARTAGLIONE, KIRT W J44 .9 CHRONIC OBSTRUCTIVE PULMONARY DISEASE, UNSPECIFIED 04/23/2018 TARTAGLIONE, KIRT W K59 .00 CONSTIPATION, UNSPECIFIED 04/23/2018 TARTAGLIONE, KIRT W R50 .9 FEVER, UNSPECIFIED 04/25/2018 Becka Saucedo W 294.21 DEMENTIA, UNSPECIFIED, IN CONDITIONS CLASSIFIED ELSEWHERE WITH BEHAVIORAL DISTURBANCE 04/25/2018 Becka Saucedo W 415.19 04/25/2018 Becka Saucedo W 780.60 FEVER, UNSPECIFIED 04/25/2018 Becka Saucedo W 780.97 ALTERED MENTAL STATUS 04/25/2018 Becka Saucedo W 785.0 TACHYCARDIA, UNSPECIFIED 04/25/2018 SaucedoJeremii W 786.07 WHEEZING 04/25/2018 SaucedoJeremii W 799.02 04/25/2018 SaucedoJeremii W F03.91 UNSPECIFIED DEMENTIA WITH BEHAVIORAL DISTURBANCE 04/25/2018 SaucedoJeremii W I26.99 OTHER PULMONARY EMBOLISM WITHOUT ACUTE COR PULMONALE 04/25/2018 SaucedoJeremii W R00.0 TACHYCARDIA, UNSPECIFIED 04/25/2018 SaucedoJeremii W R06.2 WHEEZING 04/25/2018 SaucedoJeremii W R09.02 HYPOXEMIA 04/25/2018 LewisJeremii W R41.82 ALTERED MENTAL STATUS, UNSPECIFIED 04/25/2018 Saucedo, Becka W R50.9 FEVER, UNSPECIFIED 06/11/2018 TARTAGLIONE, KIRT W 290 .41 VASCULAR DEMENTIA, WITH DELIRIUM 06/11/2018 TARTAGLIONE, KIRT W F01 .51 VASCULAR DEMENTIA WITH BEHAVIORAL DISTURBANCE 06/21/2018 TARTAGLIONE, KIRT W 275 .42 HYPERCALCEMIA 06/21/2018 TARTAGLIONE, KIRT W 290 .41 VASCULAR DEMENTIA, WITH DELIRIUM 06/21/2018 TARTAGLIONE, KIRT W 295 .70 06/21/2018 TARTAGLIONE, KIRT W 296 .20 06/21/2018 TARTAGLIONE, KIRT W 300 .00 06/21/2018 TARTAGLIONE, KIRT W 564 .00 CONSTIPATION, UNSPECIFIED 06/21/2018 TARTAGLIONE, KIRT W E83 .52 HYPERCALCEMIA 06/21/2018 TARTAGLIONE, KIRT W F01 .51 VASCULAR DEMENTIA WITH BEHAVIORAL DISTURBANCE 06/21/2018 TARTAGLIONE, KIRT W F25 .0 SCHIZOAFFECTIVE DISORDER, BIPOLAR TYPE 06/21/2018 TARTAGLIONE, KIRT W F32 .9 MAJOR DEPRESSIVE DISORDER, SINGLE EPISODE, UNSPECIFIED 06/21/2018 TARTAGLIONEROLAUA W F41 .9 ANXIETY DISORDER, UNSPECIFIED 06/21/2018 TARTAGLIONEROLAUA W K59 .09 OTHER CONSTIPATION 06/21/2018 TARTAGLIONEROLAUA W V12 .55 PERSONAL HISTORY OF PULMONARY EMBOLISM 06/21/2018 TARTAGLKIRT DOLAN W V58 .61 LONG-TERM (CURRENT) USE OF ANTICOAGULANTS 06/21/2018 TARTAGLMAGDALENO, KIRT W Z79 .01 MCFP (CURRENT) USE OF ANTICOAGULANTS 06/21/2018 PHONGTAGLMAGDALENO, KIRT Manjarrez Z86.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 06/27/2018 GELLENDER DO, GABRIELLE Steffanie Ot M25.511 PAIN IN RIGHT SHOULDER 07/17/2018 GELLENDER DO, GABRIELLE Steffanie Ot M25.511 PAIN IN RIGHT SHOULDER 09/13/2018 GELLENDER DO, GABRIELLE Armijo Ot E78.00 PURE HYPERCHOLESTEROLEMIA, UNSPECIFIED 09/13/2018 GELLENDER DO, GABRIELLE Armijo Ot E86.0 DEHYDRATION 09/13/2018 GELLENDER DO, GABRIELLE Armijo Ot F01.50 VASCULAR DEMENTIA WITHOUT BEHAVIORAL DIS 09/13/2018 GELLENDER DO, GABRIELLE Armijo Ot F02.81 DEMENTIA IN OT DISEASES CLASSD ELSWHR W 09/13/2018 GELLENDER DO, GABRIELLE Armijo Ot F32.9 MAJOR DEPRESSIVE DISORDER, SINGLE EPISOD 09/13/2018 GELLENDER DO, GABRIELLE Armijo Ot F41.9 ANXIETY DISORDER, UNSPECIFIED 09/13/2018 GELLENDER DO, GABRIELLE Armijo Ot G30.9 ALZHEIMER'S DISEASE, UNSPECIFIED 09/13/2018 GELLENDER DO, GABRIELLE Armijo Ot G62.9 POLYNEUROPATHY, UNSPECIFIED 09/13/2018 GELLENDER DO, GABRIELLE Armijo Ot H40.9 UNSPECIFIED GLAUCOMA 09/13/2018 GELLENDER DO, GABRIELLE Armijo Ot I10 ESSENTIAL (PRIMARY) HYPERTENSION 09/13/2018 GELLENDER DO, GABRIELLE Armijo Ot K59.09 OTHER CONSTIPATION 09/13/2018 GELLENDER DO, GABRIELLE Armijo Ot M19.91 PRIMARY OSTEOARTHRITIS, UNSPECIFIED SITE 09/13/2018 GELLENDER DO, GABRIELLE Armijo Ot R40.0 SOMNOLENCE 09/13/2018 GELLENDER DO, GABRIELLE Armijo Ot Z66 DO NOT RESUSCITATE 09/13/2018 GELLENDER DO, GABRIELLE Armijo Ot Z79.899 OTHER SHOE LAY OUT PLANNER (CURRENT) DRUG THERAPY 09/13/2018 GELLENDER DO, GABRIELLE Armijo Ot E78.00 PURE HYPERCHOLESTEROLEMIA, UNSPECIFIED 09/13/2018 GELLENDER DO, GABRIELLE Armijo Ot E86.0 DEHYDRATION 09/13/2018 GELLENDER DO, GABRIELLE Armijo Ot F01.50 VASCULAR DEMENTIA WITHOUT BEHAVIORAL DIS 09/13/2018 GELLENDER DO, GABRIELLE Armijo Ot F02.81 DEMENTIA IN OTH DISEASES CLASSD ELSWHR W 09/13/2018 GELLENDER DO, GABRIELLE Armijo Ot F32.9 MAJOR DEPRESSIVE DISORDER, SINGLE EPISOD 09/13/2018 GELLENDER DO, GABRIELLE Armijo Ot F41.9 ANXIETY DISORDER, UNSPECIFIED 09/13/2018 GELLENDER DO, GABRIELLE Armijo Ot G30.9 ALZHEIMER'S DISEASE, UNSPECIFIED 09/13/2018 GELLENDER DO, GABRIELLE Armijo Ot G62.9 POLYNEUROPATHY, UNSPECIFIED 09/13/2018 GELLENDER DO, GABRIELLE Armijo Ot H40.9 UNSPECIFIED GLAUCOMA 09/13/2018 GELLENDER DO, GABRIELLE Armijo Ot I10 ESSENTIAL (PRIMARY) HYPERTENSION 09/13/2018 GELLENDER DO, GABRIELLE Armijo Ot K59.09 OTHER CONSTIPATION 09/13/2018 GELLENDER DO, GABRIELLE Armijo Ot M19.91 PRIMARY OSTEOARTHRITIS, UNSPECIFIED SITE 09/13/2018 GELLENDER DO, GABRIELLE Armijo Ot R40.0 SOMNOLENCE 09/13/2018 GELLENDER DO, GABRIELLE Armijo Ot Z66 DO NOT RESUSCITATE 09/13/2018 GELLENDER DO, GABRIELLE Armijo Ot Z79.899 OTHER SHOE LAY OUT PLANNER (CURRENT) DRUG THERAPY 09/06/2019 CARLOS COMER, MIRA Amin Ot E78. 00 PURE HYPERCHOLESTEROLEMIA, UNSPECIFIED 09/06/2019 CARLOS COMER, MIRA Amin Ot F01. 51 VASCULAR DEMENTIA WITH BEHAVIORAL DISTUR 09/06/2019 CARLOS COMER, MIRA Amin Ot F32. 9 MAJOR DEPRESSIVE DISORDER, SINGLE EPISOD 09/06/2019 CARLOS COMER, MIRA Amin Ot F41. 9 ANXIETY DISORDER, UNSPECIFIED 09/06/2019 CARLOS COMER, MIRA Amin Ot G62. 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 91 PRIMARY OSTEOARTHRITIS, UNSPECIFIED SITE 09/06/2019 CARLOS COMER, MIRA Amin Ot Z20.828 CONTACT W AND EXPOSURE TO OTH VIRAL COMM 09/06/2019 CARLOS COMER, MIRA Amin Ot Z86.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 Procedures Code Description [place] [address] ROUT INE VENIPUNCTURE AMOR OTT Gayla 10/14/2016 67092 COMP REHEN METABOLIC PANEL UZMA OTTPABLO Shukla 10/14/2016 03133 URIN ALYSIS AUTO W/SCOPE AMOR OTT Gayla 10/14/2016 63628 ASSA Y OF FREE THYROXINE JET LAMASAMOR 10/14/2016 92468 ASSA Y THYROID STIM HORMONE JET LAMAS AMOR Shukla 10/14/2016 97273 COMP LETE CBC W/AUTO DIFF WBC UZMA OTTPABLO Shukla 10/14/2016 58674 CULT URE AEROBIC IDENTIFY JET LAMAS AMOR Shukla 10/14/2016 05548 CULT URE SCREEN ONLY JET LAMAS AMOR Shukla 10/14/2016 62833 URIN E CULTURE/COLONY COUNT AMOR OTT Gayla 10/14/2016 40994 MICR OBE SUSCEPTIBLE MARLENI UZMA OTTPABLO Shukla 10/14/2016 99069 ELEC TROCARDIOGRAM TRACING UZMA OTTPABLO Shukla 10/14/2016 95030 MIO GENCY DEPT VISIT AMOR OTT Gayla 10/14/2016 Results Test Result Range Complete blood count (CBC) with automate d white blood cell (WBC) differential - 09/13/17 22:07 Blood leukocytes automated count (number/volume) 4.9 10*3/uL 4.3-11.0 Blood erythrocytes automated count (number/volume) 4.79 10*6/uL 4.35-5.85 Venous blood hemoglobin measurement (mass/volume) 13.7 g/dL 13.3-17.7 Blood hematocrit (volume fraction) 43 % 40-54 Automated erythrocyte mean corpuscular volume 89 [ foz_us] 80-99 Automated erythrocyte mean corpuscular h emoglobin (mass per erythrocyte) 29 pg 25-34 Automated erythrocyte mean corpuscular h emoglobin concentration measurement (mass/volume) 32 g/dL 32-36 Automated erythrocyte distribution width ratio 14. 1 % 10.0- 14.5 Automated blood platelet count [...] 10*3 1.0-4.0 Blood monocytes automated count (number/volume) 0. 5 10*3 0.0-1.0 Automated eosinophil count 0.2 10*3/uL 0 .0-0.3 Automated blood basophil count (count/volume) 0.0 10*3/uL 0.0-0.1 Comprehensive metabolic panel - 09/13/17 22:07 Serum or plasma sodium measurement (moles/volume) 139 mmol/L 135-145 Serum or plasma potassium measurement (moles/volume) 3.7 mmol/L 3.6-5.0 Serum or plasma chloride measurement (moles/volume) 108 mmol/L 98-107 Carbon dioxide 21 mmol/L 21-32 Serum or plasma anion gap determination (moles/volume) 10 mmol/L 5-14 Serum or plasma urea nitrogen measurement (mass/volume ) 12 mg/dL 7-18 Serum or plasma creatinine measurement (mass/volume) 1.08 mg/dL 0.60-1.30 Serum or plasma urea nitrogen/creatinine mass ratio 11 NRG Serum or plasma creatinine measurement w ith calculation of estimated glomerular filtration rate > NRG Serum or plasma glucose measurement (mass/volume) 129 mg/dL 70-105 Serum or plasma calcium measurement (mass/volume) 9.8 mg/dL 8.5-10.1 Serum or plasma total bilirubin measurement (mass/volu me) 0.3 mg/dL 0.1-1.0 Serum or plasma alkaline phosphatase mayuri surement (enzymatic activity/volume) 52 U/L 40-136 Serum or plasma aspartate aminotransfera se measurement (enzymatic activity/volume) 18 U/L 5-34 Serum or plasma alanine aminotransferase measurement (enzymatic activity/volume) 12 U/L 0-55 Serum or plasma protein measurement (mass/volume) 7.7 g/dL 6.4-8.2 Serum or plasma albumin measurement (mass/volume) 4.0 g/dL 3.2-4.5 Complete urinalysis with reflex to cultu re - 09/13/17 23:30 Urine color determination BUSTER NRG Urine clarity determination CLEAR NR G Urine pH measurement by test strip 5 5-9 Specific gravity of urine by test strip 1.025 1.016-1.022 Urine protein assay by test strip, semi-quantitative 1+ NEGATIVE Urine glucose detection by automated test strip NE GATIVE NEGATIVE Erythrocytes detection in urine sediment by light micr oscopy NEGATIVE NEGATIVE Urine ketones detection by automated test strip NE GATIVE NEGATIVE Urine nitrite detection by test strip NEGATIVE NEGATIVE Urine total bilirubin detection by test strip NEGA TIVE NEGATIVE Urine urobilinogen measurement by automated test strip (mass/volume) 1 mg/dL NORMAL Urine leukocyte esterase detection by dipstick 1+ NEGATIVE Automated urine sediment erythrocyte cou nt by microscopy (number/high power field) NONE NRG Automated urine sediment leukocyte count by microscopy (number/high power field) NONE NRG Bacteria detection in urine sediment by light microsco py NEGATIVE NRG Squamous epithelial cells detection in u rine sediment by light microscopy >50 NRG Crystals detection in urine sediment by light microsco py NONE NRG Casts detection in urine sediment by light microscopy NONE NRG Mucus detection in urine sediment by light microscopy NEGATIVE NRG Complete urinalysis with reflex to culture NO NRG Thyroid Stimulating Hormone - 09/27/17 1 7:52 TSH 1.55 mIU/mL 0.32-5.00 Valproic Acid - 09/27/17 17:52 Valproic Acid 20.3 ug/mL 55.0-105.0 MRSA Screen - 09/27/17 17:52 FINAL CULTURE RESULTS MRSA Negative Nasal Culture MEDIA PLATED Setup at 18:00 on 09/27/2017 Urinalysis - 09/27/17 19:08 Icotest N/A Negative Urine Volume Urine Volume Sufficient (10mL) Urine-Appearance Clear Clear Urine-Bacteria Negative Urine-Bilirubin Negative Negative Urine-Blood Negative Negative Urine-Color Yellow Colorless-[place] ow Urine-Epithelial Cells 0-5/HPF Urine-Glucose Negative Negative Urine-Ketones Negative Negative Urine-Leukocytes Negative Negative Urine-Nitrite Negative Negative Urine-Other Urine Saved if Culture Need ed (48hrs from time of collection) Urine-pH 7.0 5-8.5 Urine-Protein Negative Negative Urine-RBC Rare/HPF Urine-Specific [place] 1.015 1.000-1 .030 Urine-WBC 0-2/HPF Urobilinogen 0.2 0.2-1.0 CBC with Auto Diff - 09/28/17 05:25 Baso% 0.20 % 0.00-2.50 Eos 0.2 K/uL 0.0-0.7 Eos% 4.8 % 0.0-7.0 Hct 41.4 % 42.0-52.0 Hgb 13.5 g/dL 14.0-17.0 Lym 2.11 K/uL 0.60-3.40 Lym% 46.3 % 10.0-50.0 MCH 29.2 pg 27.0-31.2 MCHC 32.6 g/dL 32.0-36.0 MCV 89.6 fL 80.0-97.0 [place]% 12.7 % 0.0-12.0 MPV 12.6 fL 7.4-10.0 [place]% 36.0 % 37.0-80.0 Plt 121 K/uL 150-400 RBC 4.62 M/uL 4.20-5.40 RDW 13.5 % 11.6-14.8 WBC 4.56 K/uL 5.00-10.00 Elder 1.64 K/uL 2.00-6.90 [place] 0.6 K/uL 0.0-0.9 Baso 0.0 K/uL 0.0-0.2 Thyroid Stimulating Hormone - 04/09/18 1 7:26 TSH 1.74 mIU/mL 0.32-5.00 Valproic Acid - 04/09/18 17:26 Valproic Acid 22.5 ug/mL 55.0-105.0 Comprehensive Metabolic Panel - 04/09/18 17:26 Albumin [...] 04/09/2018 EKG - 04/09/18 20:06 EKG Complete Lipid Panel - 04/10/18 05:21 C/HDL 4.7 3.7-6.7 Cholesterol 183 mg/dL 100-240 HDL 39 mg/dL 30-85 LDL-Calculated 100 mg/dL 0-100 Trig 221 mg/dL 35-160 VLDL 44 mg/dL 0-42 Valproic Acid - 04/13/18 05:30 Valproic Acid 48.5 ug/mL 55.0-105.0 Valproic Acid - 04/20/18 14:35 Valproic Acid 61.1 ug/mL 55.0-105.0 Urinalysis - 04/22/18 09:54 Icotest N/A Negative Urine Casts Hyaline Urine Volume Urine Volume Sufficient (10mL) Urine-Appearance Clear Clear Urine-Bacteria Trace Urine-Bilirubin Negative Negative Urine-Blood Negative Negative Urine-Color Yellow Colorless-[place] ow Urine-Epithelial Cells None Seen Urine-Glucose Negative Negative Urine-Ketones 1+ Negative Urine-Leukocytes Negative Negative Urine-Nitrite Negative Negative Urine-Other Culture to follow Urine-pH 5.5 5-8.5 Urine-Protein 1+ Negative Urine-RBC Few/HPF Urine-Specific [place] 1.015 1.000-1 .030 Urine-WBC Few/HPF Urobilinogen 0.2 E.U./dL 0.2-1.0 BNP - 04/23/18 06:58 BNP 16.40 pg/ml 0.00-100.00 Troponin I - 04/23/18 06:58 Troponin 0.026 ng/mL 0.000-0.400 Lactic Acid - 04/23/18 06:58 Lactic Acid 9.8 mg/dL 4.5-19.8 Blood Culture - 04/23/18 06:58 PRELIM CULTURE RESULTS Blood Culture Negativ e, No Growth Day 1 FINAL CULTURE RESULTS Blood Culture Negative , No Growth Day 5 MEDIA PLATED Setup at 08:34 on 04/23/2018, Blood Culture Media Position A01 CULTURE SOURCE venipuncture Arterial Blood Gas - 04/23/18 07:52 Base 0.00 mmol/L 1.80-4.20 HCO3 25 mmol/L 20-31 O2 Sat 96 2L % 95-100 pCO2 38 mm/Hg 35-45 pH 7.42 7.35-7.45 PO2 81 mm/Hg 80-95 Blood Culture - 04/23/18 08:32 PRELIM CULTURE RESULTS Blood Culture Negativ e, No Growth Day 1 FINAL CULTURE RESULTS Blood Culture Negative , No Growth Day 5 MEDIA PLATED Setup at 08:38 on 04/23/2018, Blood Culture Media Position C47 CULTURE SOURCE L Wrist D-Dimer - 04/23/18 12:44 DDimer 16612.00 ng/mL 21.00-229.00 Urine Culture - 04/23/18 14:11 PRELIM CULTURE RESULTS No Growth 24 hours MEDIA PLATED Setup at 13:30 on 04/23/2018 CULTURE SOURCE Cath Urine Culture - 04/23/18 14:11 PRELIM CULTURE [...] Complete Rapid Drug Screen + ETOH,Medical - 06/11 18:49 Amphetamine NEGATIVE NEGATIVE Barbiturates NEGATIVE NEGATIVE Benzodiazepines POSITIVE NEGATIVE Cocaine NEGATIVE NEGATIVE Ethanol, Urine <10.00 mg/dL 20.00-80.00 Marijuana NEGATIVE NEGATIVE Methylenedioxymethamphetamine NEGATIVE NEGATIVE Opiates POSITIVE NEGATIVE Oxycodone NEGATIVE NEGATIVE Phencyclidine NEGATIVE NEGATIVE Propoxyphene NEGATIVE NEGATIVE Tricyclic Antidepressant NEGATIVE NEGAT HERMILO Lipid Panel - 06/12/18 05:25 C/HDL 4.3 [...] g/dL 6.0-8.3 Complete blood count (CBC) with automate d white blood cell (WBC) differential - 09/11/18 12:10 Blood leukocytes automated count (number/volume) 10.7 10*3/uL 4.3-11.0 Blood erythrocytes automated count (number/volume) 5.37 10*6/uL 4.35-5.85 Venous blood hemoglobin measurement (mass/volume) 15.4 g/dL 13.3-17.7 Blood hematocrit (volume fraction) 47 % 40-54 Automated erythrocyte mean corpuscular volume 87 [ foz_us] 80-99 Automated erythrocyte mean corpuscular h emoglobin (mass per erythrocyte) 29 pg 25-34 Automated erythrocyte mean corpuscular h emoglobin concentration measurement (mass/volume) 33 g/dL 32-36 Automated erythrocyte distribution width ratio 14. 3 % 10.0- 14.5 Automated blood platelet count [...] 10*3 1.0-4.0 Blood monocytes automated count (number/volume) 0. 7 10*3 0.0-1.0 Automated eosinophil count 0.0 10*3/uL 0 .0-0.3 Automated blood basophil count (count/volume) 0.0 10*3/uL 0.0-0.1 Comprehensive metabolic panel - 09/11/18 12:10 Serum or plasma sodium measurement (moles/volume) 145 mmol/L 135-145 Serum or plasma potassium measurement (moles/volume) 3.4 mmol/L 3.6-5.0 Serum or plasma chloride measurement (moles/volume) 114 mmol/L 98-107 Carbon dioxide 20 mmol/L 21-32 Serum or plasma anion gap determination (moles/volume) 11 mmol/L 5-14 Serum or plasma urea nitrogen measurement (mass/volume ) 22 mg/dL 7-18 Serum or plasma creatinine measurement (mass/volume) 1.21 mg/dL 0.60-1.30 Serum or plasma urea nitrogen/creatinine mass ratio 18 NRG Serum or plasma creatinine measurement w ith calculation of estimated glomerular filtration rate > NRG Serum or plasma glucose measurement (mass/volume) 120 mg/dL 70-105 Serum or plasma calcium measurement (mass/volume) 10.5 mg/dL 8.5-10.1 Serum or plasma total bilirubin measurement (mass/volu me) 0.8 mg/dL 0.1-1.0 Serum or plasma alkaline phosphatase mayuri surement (enzymatic activity/volume) 44 U/L 40-136 Serum or plasma aspartate aminotransfera se measurement (enzymatic activity/volume) 22 U/L 5-34 Serum or plasma alanine aminotransferase measurement (enzymatic activity/volume) 13 U/L 0-55 Serum or plasma protein measurement (mass/volume) 8.6 g/dL 6.4-8.2 Serum or plasma albumin measurement (mass/volume) 4.6 g/dL 3.2-4.5 Serum or plasma C reactive protein measu rement (mass/volume) - 09/11/18 12:10 Serum or plasma C reactive protein measurement (mass/v olume) 1.16 mg/dL 0.00-0.50 Complete urinalysis with reflex to cultu re - 09/11/18 14:11 Urine color determination YELLOW NRG Urine clarity determination CLEAR NR G Urine pH measurement by test strip 6 5-9 Specific gravity of urine by test strip 1.020 1.016-1.022 Urine protein assay by test strip, semi-quantitative 2+ NEGATIVE Urine glucose detection by automated test strip NE GATIVE NEGATIVE Erythrocytes detection in urine sediment by light micr oscopy NEGATIVE NEGATIVE Urine ketones detection by automated test strip 3+ NEGATIVE Urine nitrite detection by test strip NEGATIVE NEGATIVE Urine total bilirubin detection by test strip NEGA TIVE NEGATIVE Urine urobilinogen measurement by automated test strip (mass/volume) 1 mg/dL NORMAL Urine leukocyte esterase detection by dipstick 1+ NEGATIVE Automated urine sediment erythrocyte cou nt by microscopy (number/high power field) NONE NRG Automated urine sediment leukocyte count by microscopy (number/high power field) [HPF] NRG Bacteria detection in urine sediment by light microsco py TRACE NRG Squamous epithelial cells detection in u rine sediment by light microscopy 2-5 NRG Crystals detection in urine sediment by light microsco py NONE NRG Casts detection in urine sediment by light microscopy NONE NRG Mucus detection in urine sediment by light microscopy SMALL NRG Complete urinalysis with reflex to culture NO NRG Complete blood count (CBC) with automate d white blood cell (WBC) differential - 09/12/18 05:20 Blood leukocytes automated count (number/volume) 8.0 10*3/uL 4.3-11.0 Blood erythrocytes automated count (number/volume) 4.58 10*6/uL 4.35-5.85 Venous blood hemoglobin measurement (mass/volume) 12.9 g/dL 13.3-17.7 Blood hematocrit (volume fraction) 40 % 40-54 Automated erythrocyte mean corpuscular volume 86 [ foz_us] 80-99 Automated erythrocyte mean corpuscular h emoglobin (mass per erythrocyte) 28 pg 25-34 Automated erythrocyte mean corpuscular h emoglobin concentration measurement (mass/volume) 33 g/dL 32-36 Automated erythrocyte distribution width ratio 14. 5 % 10.0- 14.5 Automated blood platelet count (count/volume) 139 10*3/uL 130-400 Automated blood neutrophils/100 leukocytes 51 % 42-75 Automated blood lymphocytes/100 leukocytes 37 % 12-44 Blood monocytes/100 leukocytes 11 % 0-12 Automated blood eosinophils/100 leukocytes 1 % 0-10 Automated blood basophils/100 leukocytes 0 % 0-10 Blood neutrophils automated count (number/volume) 4.1 10*3 1.8-7.8 Blood lymphocytes automated count (number/volume) 2.9 10*3 1.0-4.0 Blood monocytes automated count (number/volume) 0. 9 10*3 0.0-1.0 Automated eosinophil count 0.1 10*3/uL 0 .0-0.3 Automated blood basophil count (count/volume) 0.0 10*3/uL 0.0-0.1 Comprehensive metabolic panel - 09/12/18 05:20 Serum or plasma sodium measurement (moles/volume) 142 mmol/L 135-145 Serum or plasma potassium measurement (moles/volume) 3.6 mmol/L 3.6-5.0 Serum or plasma chloride measurement (moles/volume) 114 mmol/L 98-107 Carbon dioxide 17 mmol/L 21-32 Serum or plasma anion gap determination (moles/volume) 11 mmol/L 5-14 Serum or plasma urea nitrogen measurement (mass/volume ) 17 mg/dL 7-18 Serum or plasma creatinine measurement (mass/volume) 0.90 mg/dL 0.60-1.30 Serum or plasma urea nitrogen/creatinine mass ratio 19 NRG Serum or plasma creatinine measurement w ith calculation of estimated glomerular filtration rate > NRG Serum or plasma glucose measurement (mass/volume) 96 mg/dL 70-105 Serum or plasma calcium measurement (mass/volume) 9.3 mg/dL 8.5-10.1 Serum or plasma total bilirubin measurement (mass/volu me) 0.9 mg/dL 0.1-1.0 Serum or plasma alkaline phosphatase mayuri surement (enzymatic activity/volume) 34 U/L 40-136 Serum or plasma aspartate aminotransfera se measurement (enzymatic activity/volume) 28 U/L 5-34 Serum or plasma alanine aminotransferase measurement (enzymatic activity/volume) 12 U/L 0-55 Serum or plasma protein measurement (mass/volume) 7.3 g/dL 6.4-8.2 Serum or plasma albumin measurement (mass/volume) 3.6 g/dL 3.2-4.5 CALCIUM CORRECTED 9.6 mg/dL 8.5-10.1 Automated blood complete blood count (he mogram) panel - 09/13/18 05:40 Blood leukocytes automated count (number/volume) 7.2 10*3/uL 4.3-11.0 Blood erythrocytes automated count (number/volume) 4.42 10*6/uL 4.35-5.85 Venous blood hemoglobin measurement (mass/volume) 12.6 g/dL 13.3-17.7 Blood hematocrit (volume fraction) 38 % 40-54 Automated erythrocyte mean corpuscular volume 85 [ foz_us] 80-99 Automated erythrocyte mean corpuscular h emoglobin (mass per erythrocyte) 29 pg 25-34 Automated erythrocyte mean corpuscular h emoglobin concentration measurement (mass/volume) 34 g/dL 32-36 Automated erythrocyte distribution width ratio 14. 3 % 10.0- 14.5 Automated blood platelet count (count/volume) 139 10*3/uL 130-400 Automated blood platelet mean volume measurement 12.5 [foz_us] 7.4-10.4 Whole blood basic metabolic panel - 09/03 03/24 05:40 Serum or plasma sodium measurement (moles/volume) 143 mmol/L 135-145 Serum or plasma potassium measurement (moles/volume) 2.8 mmol/L 3.6-5.0 Serum or plasma chloride measurement (moles/volume) 114 mmol/L 98-107 Carbon dioxide 20 mmol/L 21-32 Serum or plasma anion gap determination (moles/volume) 9 mmol/L 5-14 Serum or plasma urea nitrogen measurement (mass/volume ) 11 mg/dL 7-18 Serum or plasma creatinine measurement (mass/volume) 0.83 mg/dL 0.60-1.30 Serum or plasma urea nitrogen/creatinine mass ratio 13 NRG Serum or plasma creatinine measurement w ith calculation of estimated glomerular filtration rate > NRG Serum or plasma glucose measurement (mass/volume) 106 mg/dL 70-105 Serum or plasma calcium measurement (mass/volume) 9.3 mg/dL 8.5-10.1 Complete blood count (CBC) with automate d white blood cell (WBC) differential - 09/04/19 14:42 Blood leukocytes automated count (number/volume) 7.9 10*3/uL 4.3-11.0 Blood erythrocytes automated count (number/volume) 5.32 10*6/uL 4.35-5.85 Venous blood hemoglobin measurement (mass/volume) 15.3 g/dL 13.3-17.7 Blood hematocrit (volume fraction) 47 % 40-54 Automated erythrocyte mean corpuscular volume 88 [ foz_us] 80-99 Automated erythrocyte mean corpuscular h emoglobin (mass per erythrocyte) 29 pg 25-34 Automated erythrocyte mean corpuscular h emoglobin concentration measurement (mass/volume) 33 g/dL 32-36 Automated erythrocyte distribution width ratio 14. 0 % 10.0- 14.5 Automated blood platelet count (count/volume) 146 10*3/uL 130-400 Automated blood platelet mean volume measurement 12.6 [foz_us] 7.4-10.4 Automated blood neutrophils/100 leukocytes 59 % 42-75 Automated blood lymphocytes/100 leukocytes 31 % 12-44 Blood monocytes/100 leukocytes 9 % 0-12 Automated blood eosinophils/100 leukocytes 1 % 0-10 Automated blood basophils/100 leukocytes 0 % 0-10 Blood neutrophils automated count (number/volume) 4.7 10*3 1.8-7.8 Blood lymphocytes automated count (number/volume) 2.4 10*3 1.0-4.0 Blood monocytes automated count (number/volume) 0. 7 10*3 0.0-1.0 Automated eosinophil count 0.1 10*3/uL 0 .0-0.3 Automated blood basophil count (count/volume) 0.0 10*3/uL 0.0-0.1 Comprehensive metabolic panel - 09/04/19 14:42 Serum or plasma sodium measurement (moles/volume) 142 mmol/L 135-145 Serum or plasma potassium measurement (moles/volume) 3.6 mmol/L 3.6-5.0 Serum or plasma chloride measurement (moles/volume) 107 mmol/L 98-107 Carbon dioxide 28 mmol/L 21-32 Serum or plasma anion gap determination (moles/volume) 7 mmol/L 5-14 Serum or plasma urea nitrogen measurement (mass/volume ) 9 mg/dL 7-18 Serum or plasma creatinine measurement (mass/volume) 1.10 mg/dL 0.60-1.30 Serum or plasma urea nitrogen/creatinine mass ratio 8 NRG Serum or plasma creatinine measurement w ith calculation of estimated glomerular filtration rate > NRG Serum or plasma glucose measurement (mass/volume) 133 mg/dL 70-105 Serum or plasma calcium measurement (mass/volume) 10.1 mg/dL 8.5-10.1 Serum or plasma total bilirubin measurement (mass/volu me) 0.7 mg/dL 0.1-1.0 Serum or plasma alkaline phosphatase mayuri surement (enzymatic activity/volume) 53 U/L 40-136 Serum or plasma aspartate aminotransfera se measurement (enzymatic activity/volume) 25 U/L 5-34 Serum or plasma alanine aminotransferase measurement (enzymatic activity/volume) 22 U/L 0-55 Serum or plasma protein measurement (mass/volume) 8.4 g/dL 6.4-8.2 Serum or plasma albumin measurement (mass/volume) 4.2 g/dL 3.2-4.5 CALCIUM CORRECTED 9.9 mg/dL 8.5-10.1 Fibrin D-dimer FEU measurement in platel et poor plasma (mass/volume) - 09/04/19 14:42 Fibrin D-dimer FEU measurement in platelet poor plasma (mass/volume) 2.43 ug/mL 0.00-0.49 Serum or plasma lithium measurement (mol es/volume) - 09/04/19 14:42 BNP PT < 10.0 <100.0 COVID-19 IgG Only 09/04/19 14:42 Coronavirus Ab [Units/volume] in Serum Negative Negative Coronavirus SARS-CoV-2 SO 2018 0 17:59 Coronavirus Ab [Units/volume] in Serum Negative Negative Complete blood count (CBC) with automate d white blood cell (WBC) differential - 09/05/19 04:45 Blood leukocytes automated count (number/volume) 5.8 10*3/uL 4.3-11.0 Blood erythrocytes automated count (number/volume) 5.08 10*6/uL 4.35-5.85 Venous blood hemoglobin measurement (mass/volume) 14.6 g/dL 13.3-17.7 Blood hematocrit (volume fraction) 44 % 40-54 Automated erythrocyte mean corpuscular volume 87 [ foz_us] 80-99 Automated erythrocyte mean corpuscular h emoglobin (mass per erythrocyte) 29 pg 25-34 Automated erythrocyte mean corpuscular h emoglobin concentration measurement (mass/volume) 33 g/dL 32-36 Automated erythrocyte distribution width ratio 14. 0 % 10.0- 14.5 Automated blood platelet count (count/volume) 133 10*3/uL 130-400 Automated blood platelet mean volume measurement 11.5 [foz_us] 7.4-10.4 Automated blood neutrophils/100 leukocytes 37 % 42-75 Automated blood lymphocytes/100 leukocytes 47 % 12-44 Blood monocytes/100 leukocytes 12 % 0-12 Automated blood eosinophils/100 leukocytes 3 % 0-10 Automated blood basophils/100 leukocytes 0 % 0-10 Blood neutrophils automated count (number/volume) 2.2 10*3 1.8-7.8 Blood lymphocytes automated count (number/volume) 2.7 10*3 1.0-4.0 Blood monocytes automated count (number/volume) 0. 7 10*3 0.0-1.0 Automated eosinophil count 0.2 10*3/uL 0 .0-0.3 Automated blood basophil count (count/volume) 0.0 10*3/uL 0.0-0.1 Comprehensive metabolic panel - 09/05/19 04:45 Serum or plasma sodium measurement (moles/volume) 142 mmol/L 135-145 Serum or plasma potassium measurement (moles/volume) 3.5 mmol/L 3.6-5.0 Serum or plasma chloride measurement (moles/volume) 109 mmol/L 98-107 Carbon dioxide 23 mmol/L 21-32 Serum or plasma anion gap determination (moles/volume) 10 mmol/L 5-14 Serum or plasma urea nitrogen measurement (mass/volume ) 9 mg/dL 7-18 Serum or plasma creatinine measurement (mass/volume) 0.88 mg/dL 0.60-1.30 Serum or plasma urea nitrogen/creatinine mass ratio 10 NRG Serum or plasma creatinine measurement w ith calculation of estimated glomerular filtration rate > NRG Serum or plasma glucose measurement (mass/volume) 95 mg/dL 70-105 Serum or plasma calcium measurement (mass/volume) 9.3 mg/dL 8.5-10.1 Serum or plasma total bilirubin measurement (mass/volu me) 0.7 mg/dL 0.1-1.0 Serum or plasma alkaline phosphatase mayuri surement (enzymatic activity/volume) 49 U/L 40-136 Serum or plasma aspartate aminotransfera se measurement (enzymatic activity/volume) 21 U/L 5-34 Serum or plasma alanine aminotransferase measurement (enzymatic activity/volume) 18 U/L 0-55 Serum or plasma protein measurement (mass/volume) 7.4 g/dL 6.4-8.2 Serum or plasma albumin measurement (mass/volume) 3.8 g/dL 3.2-4.5 CALCIUM CORRECTED 9.5 mg/dL 8.5-10.1 Encounters ACCT No. Visit Date/Time Discharge Status Pt. Type Provider Facility Loc./Unit Complaint [id number] 10/14/2016 04:20:00 11/16/2016 20:18 :00 DIS Inpatient BRISA COMER, DAVID Jamison [facility] [id number] 10/14/2016 02:40:00 10/14/2016 04:15 :00 DIS Emergency JET LAMAS AMOR Gayla Blaynesocrates armijo [facility] ER [id number] 04/23/2018 07:51:00 Document Registration [id number] 04/20/2018 08:00:00 Document Registration [id number] 09/04/2019 17:56:00 020 12:44:00 DIS Inpatient CARLOS COMER, MIRA Amin [facility] 4TH PULMONARY EMBOLISM [id number] 09/11/2018 16:03:00 019 14:45:00 DIS Inpatient GABRIELLE MACDONALD DO [facility] 4TH DEHYDRATION,MEN DAMI STATUS CHANGES [id number] 06/27/2018 13:10:00 019 23:59:59 CLS Outpatient TORRES GORE GABRIELLE Steffanie [facility] RAD RIGHT SHOULDER PAIN [id number] 01/10/2018 19:02:00 018 21:34:00 DIS Emergency MO WHITFIELD DO [facility] ER AGITATION, HIT OTHER RE SIDENT [id number] 09/13/2017 21:29:00 018 00:10:00 DIS Emergency KIRT AKERS MD [facility] ER REQUESTING PSYC HIATRIC EVALUATION [id number] 06/11/2018 18:00:00 Document Registration [id number] 04/09/2018 18:30:00 Document Registration [id number] 06/11/2018 18:00:00 06/21/2018 09:04: 00 DIS Inpatient KIRT FORD [facility] HARDIK [id number] 04/23/2018 07:51:00 04/25/2018 09:30: 00 DIS Inpatient Becka Saucedo C enter ICU [id number] 04/20/2018 08:00:00 04/23/2018 12:30: 00 DIS Inpatient KIRT FORD [facility]ARDIK [id number] 04/09/2018 18:30:00 04/17/2018 15:17: 00 DIS Inpatient KIRT FORD [facility]ARDIK [id number] 09/27/2017 19:25:00 10/03/2017 13:15: 00 DIS Inpatient ASHLEY GLASER [facility] [id number] 09/27/2017 17:41:02 Document Registration
[2019-10-01] MEDS ORDERED: NS IV 1000 ML 1,000 ML ONE (13:47)
[2019-10-01] MEDS ORDERED: NS IV 500 ML 500 ML IV SCH (14:00)
[2019-10-01] MEDS ORDERED: NS IV 1000 ML 1,000 ML IV ONE (14:00)
--- NOTE | 2019-10-01 14:10 | NUR ---
lab here to draw on pt at this time.
--- NOTE | 2019-10-01 14:15 | NUR ---
blood bank laboratory technologist reports no blood was obtained, will see if another tech is available to look.
--- NOTE | 2019-10-01 14:42 | ED Respiratory ---
General Chief Complaint: Respiratory Problems Stated Complaint: COUGH;SOA Nursing Triage Note: PT PRESENTS TO ED FROM [facility], [place], [facility] BY [facility] FOR COUGH, SORE THROAT, MALAISE, DECREASED APPETITE, AND GENERAL WEAKNESS X 2 DAYS. Source: patient Exam Limitations: no limitations History of Present Illness Date Seen by Provider: Oct 01, 2019 Time Seen by Provider: 11:34 Initial Comments 69-year-old male who presents to the emergency room from [facility] for cough, recent appetite, generalized weakness for the past 2 days. The patient was admitted last month for pulmonary embolism and correction staff says that he has been declining ever since. He has advanced dementia but is alert and oriented to person and place at this time. Timing/Duration: getting worse Allergies and Home Medications Allergies Coded Allergies: No Known Drug Allergies (Unverified , 01/10/18) Home Medications Acetaminophen 650 Mg Supp.rect, 650 MG RC Q8H PRN for PAIN-MILD OR TEMPATURE, (Reported) Acetaminophen 325 Mg Tablet, 650 MG PO Q8H PRN for PAIN-MILD OR TEMPATURE, (Reported) TAKES 2 (325MG) TABLETS Amoxicillin/Potassium Clav 1 Each Tablet, 1 EACH PO BID, (Reported) FILLED 08-31-2019 #14/7DS Atorvastatin Calcium 10 Mg Tablet, 10 MG PO HS, (Reported) Bisacodyl 10 Mg Supp.rect, 10 MG RC DAILY PRN for CONSTIPATION-4TH LINE, (Re ported) Brimonidine Tartrate/Timolol 5 Ml Drops, 1 DROP OS BID, (Reported) Brimonidine Tartrate/Timolol 5 Ml Drops, 1 DROP OD TID, (Reported) Dorzolamide HCl/Pf 10 Ml Drops, 1 DROP OS BID, (Reported) SEPERATE ALL DROPS BY 5 MINUTES Dorzolamide HCl/Pf 10 Ml Drops, 1 DROP OD TID, (Reported) SEPERATE ALL EYE DROPS BY 5 MINUTES Haloperidol Decanoate 100 Mg/1 Ml Vial, 150 MG IM MONTHLY, (Reported) NEXT DOSE DUE 09-17-2019 Latanoprost 2.5 Ml Drops, 1 DROP OS HS, (Reported) Magnesium Hydroxide 400 Mg/5 Ml Oral.susp, 30 ML PO DAILY PRN for CONSTIPATION- 7TH LINE, (Reported) Mirtazapine 15 Mg Tablet, 15 MG PO HS, (Reported) Polyethylene Glycol 3350 17 Gm Powd.pack, 17 GM PO DAILY, (Reported) Rivaroxaban 1 Each Tab.ds.pk, 1 EACH PO UD 15mg by mouth twice daily x 21 days then 20mg by mouth daily Prescribed by: MIRA GONZALEZ on 09/05/19 1406 Sennosides 8.6 Mg Tablet, 17.2 MG PO BID, (Reported) TAKES 2 (8.6MG) TABLETS Patient Home Medication List Home Medication List Reviewed: Yes Review of Systems Review of Systems Constitutional: see HPI; No chills, No fever; malaise, weakness Musculoskeletal: see HPI, muscle weakness All Other Systems Reviewed Negative Unless Noted: Yes Past Znqnnkj-Icrfis-Afdchy Hx Past Med/Social Hx: Reviewed Nursing Past Med/Soc Hx Patient Social History Alcohol Use: Denies Use Recreational Drug Use: No Smoking Status: Unknown if Ever Smoked Recent Foreign Travel: No Contact w/Someone Who Travel: No Recent Infectious Disease Expo: No Recent Hopitalizations: No Physical Abuse: No Sexual Abuse: No Mistreated: No Fear: No Immunizations Up To Date Tetanus Booster (TDap): Unknown Seasonal Allergies Seasonal Allergies: Yes Past Medical History Surgeries: No (UNKNOWN) Respiratory: Yes (chronic rhinitis) Pulmonary Embolism Cardiac: Yes Chronic Edema/Swelling, High Cholesterol, Hypertension 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 8.0oz. [id number]; 27.00 BMI Method:Stated General Appearance: WD/WN, no apparent distress Respiratory: chest non-tender, lungs clear, normal breath sounds, no respiratory distress, no accessory muscle use Cardiovascular: normal peripheral pulses, regular rate, rhythm, no edema, no gallop, no JVD, no murmur Extremities: normal capillary refill Neurologic/Psychiatric: alert, normal mood/affect Skin: normal color, warm/dry Progress/Results/Core Measures Suspected Sepsis Recent Fever Within 48 Hours: No Infection Criteria Present: Suspected New Infection New/Unexplained Altered Menta: Yes Sepsis Screen: No Definite Risk SIRS Temperature: Pulse: 86 Respiratory Rate: 18 Laboratory Tests 10/01/19 11:53: White Blood Count 5.9 Blood Pressure 110 /70 Mean: 83 Laboratory Tests 10/01/19 00:00: 10/01/19 11:53: Platelet Count 106L Results/Orders Lab Results Laboratory Tests Test 10/01/19 00:00 10/01/19 11:53 Range/Units White Blood Count 5.9 4.3-11.0 10^3/uL Red Blood Count 5.10 4.35-5.85 10^6/uL Hemoglobin 14.5 13.3-17.7 G/DL Hematocrit 46 40-54 % Mean Corpuscular Volume 90 80-99 FL Mean Corpuscular Hemoglobin 28 25-34 PG Mean Corpuscular Hemoglobin Concent 32 32-36 G/DL Red Cell Distribution Width 14.5 10.0-14.5 % Platelet Count 106 L 130-400 10^3/uL Mean Platelet Volume 13.3 H 7.4-10.4 FL Neutrophils (%) (Auto) 53 42-75 % Lymphocytes (%) (Auto) 29 12-44 % Monocytes (%) (Auto) 16 H 0-12 % Eosinophils (%) (Auto) 2 0-10 % Basophils (%) (Auto) 0 0-10 % Neutrophils # (Auto) 3.1 1.8-7.8 X 10^3 Lymphocytes # (Auto) 1.7 1.0-4.0 X 10^3 Monocytes # (Auto) 0.9 0.0-1.0 X 10^3 Eosinophils # (Auto) 0.1 0.0-0.3 10^3/uL Basophils # (Auto) 0.0 0.0-0.1 10^3/uL My Orders Orders - NADEEN CHOWDHURY Cbc With Automated Diff (10/01/19 11:31) Comprehensive Metabolic Panel (10/01/19 11:31) BNP (10/01/19 11:31) Blood Culture (10/01/19 11:31) Fibrin Degradation Products (10/01/19 11:31) Ekg Tracing (10/01/19 11:31) O2 (10/01/19 11:31) Ed Iv/Invasive Line Start (10/01/19 11:31) Monitor-Rhythm Ecg Trace Only (10/01/19 11:31) Chest 1 View, Ap/Pa Only (10/01/19 11:31) Ua Culture If Indicated (10/01/19 11:34) Ns Iv 500 Ml (Sodium Chloride 0.9%) (10/01/19 14:00) Ns Iv 1000 Ml (Sodium Chloride 0.9%) (10/01/19 13:47) Ns Iv 1000 Ml (Sodium Chloride 0.9%) (10/01/19 14:00) Medications Given in ED Current Medications Medications Dose Ordered Sig/Reji Route Start Time Stop Time Status Last Admin Dose Admin Sodium Chloride 1,000 ml @ 0 mls/hr ONCE ONCE IV 10/01/19 14:00 10/01/19 14:01 DC 10/01/19 14:00 500 MLS/HR Vital Signs/I&O 10/01/19 10/01/19 11:00 15:23 Temp 37.1 Pulse 86 87 Resp 18 18 B/P (MAP) 110/70 (83) 146/97 Pulse Ox 98 99 Capillary Refill : Less Than 3 Seconds Blood Pressure Mean: 83 Progress Note : Time: 14:30 Progress Note I have seen and evaluated the patient. After multiple unsuccessful attempts of IV sticks, blood draws the patient is refusing any more pokes at this time. I informed him that he really needs lab work to evaluate him. He is adamant about no more IV sticks. I did call his guardian Felicia and she does not want the patient to have invasive treatment such as central line to obtain blood work. She reports that they have been discussing with the patient's continuing decline. I did call Dr. Macdonald at this time and he agrees with the patient's guardian and will consult hospice. The patient and Felicia agrees with plan of care. Report was called to the correction and they will be providing transportation. Departure Impression Primary Impression: Hospice care Additional Impression: General medical exam Disposition: 01 HOME, SELF-CARE Condition: Stable/Unchanged Departure-Patient Inst. Decision time for Depature: 14:40 Referrals: GABRIELLE MACDONALD DO (PCP/Family) Primary Care Physician Patient Instructions: Palliative Care Add. Discharge Instructions: I have discussed the case with Dr. Macdonald and he will be making arrangements for a hospice consult for Rom. Please call to schedule the patient an appointment to see Dr. Macdonald within 1 week. I did discuss this with his guardian and she agrees with plan of care also. Return back to the emergency room for worsening symptoms, shortness of breath or, chest pain, or any other concerns as needed. All discharge instructions reviewed with patient and/or family. Voiced understanding. NADEEN CHOWDHURY Oct 01, 2019 14:42
[2019-10-01 15:23] VITALS: BP 146/97
== END 2019-10-01 15:23 | disposition home or self-care (01) ==
LOC: EDUNIT# 10:58 → ER 11:00
DX: Z51.5 Encounter for palliative care (principal); R05 Cough; R53.1 Weakness; R63.0 Anorexia; F01.51 Vascular dementia, unspecified severity, with behavioral disturbance; I10 Essential (primary) hypertension; E78.00 Pure hypercholesterolemia, unspecified; G62.9 Polyneuropathy, unspecified; F41.9 Anxiety disorder, unspecified; F32.9 Major depressive disorder, single episode, unspecified; Z79.01 Long term (current) use of anticoagulants; Z86.711 Personal history of pulmonary embolism
CPT/HCPCS: 36415; 71045; 85025; 87040; 93041

== ENCOUNTER 2020-02-26 12:57 | Emergency (ER) | payer OTHER, MEDICARE, MEDICAID ==
[~2020-02-26] VITALS: Ht 188 cm; Wt 81.6 kg
[~2020-02-26 12:57] MED LIST changes: +MIRT-96 PO; -MIRT15TA PO
--- NOTE | 2020-02-26 13:16 | ED General ---
General Stated Complaint: HYPOXIA Source of Information: Patient Exam Limitations: No Limitations History of Present Illness Date Seen by Provider: Feb 26, 2020 Time Seen by Provider: 13:14 Initial Comments To ER by EMS from [facility] with reports that his oxygen saturation was low at their facility at 60%. On arrival here he is 99% on room air without complaints. He had Covid on 01/28/2020. He is on Xarelto for history of pulmonary emboli. Timing/Duration: Other Severity: Mild (No symptoms) Associated Systoms: Denies Symptoms Allergies and Home Medications Allergies Coded Allergies: No Known Drug Allergies (Unverified , 01/10/18) Home Medications Acetaminophen 650 Mg Supp.rect, 650 MG RC Q8H PRN for PAIN-MILD OR TEMPATURE, (Reported) Acetaminophen 325 Mg Tablet, 650 MG PO Q8H PRN for PAIN-MILD OR TEMPATURE, (Reported) TAKES 2 (325MG) TABLETS Amoxicillin/Potassium Clav 1 Each Tablet, 1 EACH PO BID, (Reported) FILLED 08-31-2019 #14/7DS Atorvastatin Calcium 10 Mg Tablet, 10 MG PO HS, (Reported) Bisacodyl 10 Mg Supp.rect, 10 MG RC DAILY PRN for CONSTIPATION-4TH LINE, (Reported) Brimonidine Tartrate/Timolol 5 Ml Drops, 1 DROP OS BID, (Reported) Brimonidine Tartrate/Timolol 5 Ml Drops, 1 DROP OD TID, (Reported) Dorzolamide HCl/Pf 10 Ml Drops, 1 DROP OS BID, (Reported) SEPERATE ALL DROPS BY 5 MINUTES Dorzolamide HCl/Pf 10 Ml Drops, 1 DROP OD TID, (Reported) SEPERATE ALL EYE DROPS BY 5 MINUTES Haloperidol Decanoate 100 Mg/1 Ml Vial, 150 MG IM MONTHLY, (Reported) NEXT DOSE DUE 09-17-2019 Latanoprost 2.5 Ml Drops, 1 DROP OS HS, (Reported) Magnesium Hydroxide 400 Mg/5 Ml Oral.susp, 30 ML PO DAILY PRN for CONSTIPATION- 7TH LINE, (Reported) Mirtazapine 15 Mg Tablet, 15 MG PO HS, (Reported) Polyethylene Glycol 3350 17 Gm Powd.pack, 17 GM PO DAILY, (Reported) Rivaroxaban 1 Each Tab.ds.pk, 1 EACH PO UD 15mg by mouth twice daily x 21 days then 20mg by mouth daily Prescribed by: MIRA GONZALEZ on 09/05/19 0136 Sennosides 8.6 Mg Tablet, 17.2 MG PO BID, (Reported) TAKES 2 (8.6MG) TABLETS Patient Home Medication List Home Medication List Reviewed: Yes Review of Systems Review of Systems Constitutional: see HPI EENTM: see HPI Respiratory: no symptoms reported Cardiovascular: no symptoms reported Genitourinary: no symptoms reported Musculoskeletal: no symptoms reported Skin: no symptoms reported Psychiatric/Neurological: No Symptoms Reported Hematologic/Lymphatic: No Symptoms Reported Immunological/Allergic: no symptoms reported Past Gkyfiau-Sgxeoo-Iuiurb Hx Patient Social History Recent Hopitalizations: No Immunizations Up To Date Tetanus Booster (TDap): Unknown Seasonal Allergies Seasonal Allergies: Yes Past Medical History Surgeries: No (UNKNOWN) Respiratory: Yes (chronic rhinitis) Pulmonary Embolism Cardiac: Yes Chronic Edema/Swelling, High Cholesterol, Hypertension 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 8.0oz. 71.348550sv; 27.00 BMI Method:Stated General Appearance: No Apparent Distress, WD/WN, Other (Vitals are stable, no accessory muscle use lungs are clear respiratory rate 17 oxygen 99% room air. Blood pressure 115/92) Eyes: Bilateral Eye Normal Inspection, Bilateral Eye PERRL, Bilateral Eye EOMI HEENT: PERRL/EOMI, TMs Normal Neck: Full Range of Motion, Normal Inspection Respiratory: No Accessory Muscle Use, No Respiratory Distress Cardiovascular: Regular Rate, Rhythm, Normal Peripheral Pulses Gastrointestinal: Normal Bowel Sounds, Non Tender, Soft Extremity: Normal Capillary Refill, Normal Inspection, No Pedal Edema Neurologic/Psychiatric: Alert, Oriented x3 Skin: Normal Color, Warm/Dry Progress/Results/Core Measures Suspected Sepsis SIRS Temperature: Pulse: Respiratory Rate: Laboratory Tests 02/26/20 13:10: White Blood Count 4.8 Blood Pressure / Mean: Laboratory Tests 02/26/20 13:10: Creatinine 0.82, INR Comment 2.5H, Platelet Count 154, Total Bilirubin 0.6 Results/Orders Lab Results Laboratory Tests Test 02/26/20 13:10 Range/Units White Blood Count 4.8 4.3-11.0 10^3/uL Red Blood Count 4.72 4.30-5.52 10^6/uL Hemoglobin 13.3 13.3-17.7 g/dL Hematocrit 43 40-54 % Mean Corpuscular Volume 91 80-99 fL Mean Corpuscular Hemoglobin 28 25-34 pg Mean Corpuscular Hemoglobin Concent 31 L 32-36 g/dL Red Cell Distribution Width 13.9 10.0-14.5 % Platelet Count 154 130-400 10^3/uL Mean Platelet Volume 11.0 9.0-12.2 fL Immature Granulocyte % (Auto) 0 % Neutrophils (%) (Auto) 39 L 42-75 % Lymphocytes (%) (Auto) 48 H 12-44 % Monocytes (%) (Auto) 11 0-12 % Eosinophils (%) (Auto) 2 0-10 % Basophils (%) (Auto) 0 0-10 % Neutrophils # (Auto) 1.9 1.8-7.8 10^3/uL Lymphocytes # (Auto) 2.3 1.0-4.0 10^3/uL Monocytes # (Auto) 0.5 0.0-1.0 10^3/uL Eosinophils # (Auto) 0.1 0.0-0.3 10^3/uL Basophils # (Auto) 0.0 0.0-0.1 10^3/uL Immature Granulocyte # (Auto) 0.0 0.0-0.1 10^3/uL Prothrombin Time 27.3 H 12.2-14.7 SEC INR Comment 2.5 H 0.8-1.4 Activated Partial Thromboplast Time 54 H 24-35 SEC Sodium Level 142 135-145 MMOL/L Potassium Level 3.5 L 3.6-5.0 MMOL/L Chloride Level 106 98-107 MMOL/L Carbon Dioxide Level 26 21-32 MMOL/L Anion Gap 10 5-14 MMOL/L Blood Urea Nitrogen 14 7-18 MG/DL Creatinine 0.82 0.60-1.30 MG/DL Estimat Glomerular Filtration Rate > 60 BUN/Creatinine Ratio 17 Glucose Level 84 70-105 MG/DL Calcium Level 9.6 8.5-10.1 MG/DL Corrected Calcium 9.8 8.5-10.1 MG/DL Magnesium Level 1.9 1.6-2.4 MG/DL Total Bilirubin 0.6 0.1-1.0 MG/DL Aspartate Amino Transf (AST/SGOT) 18 5-34 U/L Alanine Aminotransferase (ALT/SGPT) 17 0-55 U/L Alkaline Phosphatase 37 L 40-136 U/L B-Type Natriuretic Peptide < 10.0 <100.0 PG/ML Total Protein 7.4 6.4-8.2 GM/DL Albumin 3.7 3.2-4.5 GM/DL Vital Signs/I&O 02/26/20 12:57 Temp 36.0 Pulse 79 Resp 18 B/P (MAP) 115/92 (100) Pulse Ox 99 O2 Delivery Room Air Capillary Refill : Departure Impression Primary Impression: General medical exam Disposition: HOME, SELF-CARE Condition: Stable Departure-Patient Inst. Decision time for Depature: 13:52 Referrals: GABRIELLE MACDONALD DO (PCP/Family) Primary Care Physician Patient Instructions: NO INSTRUCTIONS GIVEN KRISTOFER PASCUAL APRN Feb 26, 2020 13:16
[2020-02-26 13:17] LABS: BASOPHILS % (AUTO) 0 % (0-10); EOSINOPHILS # (AUTO) 0.1 10^3/uL (0.0-0.3); EOSINOPHILS % (AUTO) 2 % (0-10); HEMATOCRIT 43 % (40-54); HEMOGLOBIN 13.3 g/dL (13.3-17.7); LYMPHOCYTES # (AUTO) 2.3 10^3/uL (1.0-4.0); LYMPHOCYTES % (AUTO) 48 % (12-44); MEAN CORPUSCULAR HEMOGLOBIN 28 pg (25-34); MEAN CORPUSCULAR HGB CONC 31 g/dL (32-36); MEAN CORPUSCULAR VOLUME 91 fL (80-99); MONOCYTES # (AUTO) 0.5 10^3/uL (0.0-1.0); MONOCYTES % (AUTO) 11 % (0-12); NEUTROPHILS # (AUTO) 1.9 10^3/uL (1.8-7.8); NEUTROPHILS % (AUTO) 39 % (42-75); PLATELET COUNT 154 10^3/uL (130-400); WHITE BLOOD COUNT 4.8 10^3/uL (4.3-11.0)
[2020-02-26 13:27] LABS: ALBUMIN 3.7 GM/DL (3.2-4.5)
[2020-02-26 13:28] LABS: CHLORIDE 106 MMOL/L (98-107); POTASSIUM 3.5 MMOL/L (3.6-5.0); SODIUM 142 MMOL/L (135-145)
[2020-02-26 13:29] LABS: CALCIUM 9.6 MG/DL (8.5-10.1); INR 2.5 (0.8-1.4); PROTHROMBIN TIME PATIENT 27.3 SEC (12.2-14.7)
[2020-02-26 13:30] LABS: GLUCOSE 84 MG/DL (70-105); TOTAL PROTEIN 7.4 GM/DL (6.4-8.2)
[2020-02-26 13:31] LABS: CARBON DIOXIDE 26 MMOL/L (21-32)
[2020-02-26 13:32] LABS: BILIRUBIN,TOTAL 0.6 MG/DL (0.1-1.0)
[2020-02-26 13:33] LABS: ALKALINE PHOSPHATASE 37 U/L (40-136)
[2020-02-26 13:34] LABS: CREATININE SERUM 0.82 MG/DL (0.60-1.30); GFR ESTIMATED > 60
[2020-02-26 13:35] LABS: BUN/CREATININE RATIO 17
[2020-02-26 13:37] LABS: ALANINE AMINOTRANSFERASE 17 U/L (0-55); MAGNESIUM 1.9 MG/DL (1.6-2.4)
--- NOTE | 2020-02-26 13:47 | Diagnostic Imaging Report ---
INDICATION: Hypoxia. COMPARISON: 10/01/2019 FINDINGS: The lungs are clear. No infiltrate, effusion or pneumothorax. There was no failure pattern. IMPRESSION: No acute appearing abnormality. Dictated by: Dictated on workstation # [id number]
--- NOTE | 2020-02-26 13:55 | NUR ---
SNF WAS CALLED AND NOTIFIED THAT PATIENT IS BEING DISCHARGED AND READY TO BE PICKED UP.
[2020-02-26 14:00] VITALS: BP 125/75
== END 2020-02-26 14:00 | disposition home or self-care (01) ==
LOC: EDUNIT# 12:57 → ER 13:00
DX: Z00.00 Encounter for general adult medical examination without abnormal findings (principal); E78.00 Pure hypercholesterolemia, unspecified; H40.9 Unspecified glaucoma; F32.9 Major depressive disorder, single episode, unspecified; Z86.711 Personal history of pulmonary embolism; Z79.01 Long term (current) use of anticoagulants
CPT/HCPCS: 36415; 71045; 80053; 83735; 83880; 85025; 85610; 85730; 93041

== ENCOUNTER → 2020-06-27 | Outpatient (CLI) | payer OTHER, MEDICARE, MEDICAID ==
[2020-06-27 15:51] LABS: BILIRUBIN,URINE NEGATIVE (NEGATIVE); CLARITY,URINE CLEAR; COLOR,URINE YELLOW; GLUCOSE, URINE (UA) NEGATIVE (NEGATIVE); KETONES,URINE NEGATIVE (NEGATIVE); LEUKOCYTE ESTERASE ,URINE NEGATIVE (NEGATIVE); NITRITE,URINE NEGATIVE (NEGATIVE); PROTEIN,URINE NEGATIVE (NEGATIVE)
[2020-06-27 15:58] LABS: BACTERIA,URINE NEGATIVE /HPF
== END ==
LOC: LAB 15:45
PROVIDERS: ATTEND Family Medicine
DX: Z01.89 Encounter for other specified special examinations (principal)
CPT/HCPCS: 81000

== ENCOUNTER 2022-08-21 21:24 | Emergency (ER) | payer OTHER, MEDICARE, MEDICAID ==
[~2022-08-21] VITALS: Ht 180 cm; Wt 60.0 kg
[~2022-08-21 21:24] MED LIST changes: +MIRT-69 PO; -MIRT30TA6 PO
[2022-08-21 21:25] VITALS: BP 106/76
--- NOTE | 2022-08-21 21:32 | ED General ---
General Stated Complaint: SWALLOWED BABY WIPE Allergies and Home Medications Allergies Coded Allergies: No Known Drug Allergies (Unverified , 01/10/18) Patient Home Medication List Acetaminophen (Acetaminophen) 650 Mg Supp.rect, 650 MG RC Q8H PRN for PAIN-MILD OR TEMPATURE, (Reported) Entered as Reported by: CHACHO FRIEDMAN on 09/12/18923 Acetaminophen (Tylenol) 325 Mg Tablet, 650 MG PO Q8H PRN for PAIN-MILD OR TEMPATURE, (Reported) Entered as Reported by: CHACHO FRIEDMAN on 09/12/18923 Amoxicillin/Potassium Clav (Augmentin 875-125 Tablet) 1 Each Tablet, 1 EACH PO BID, (Reported) Entered as Reported by: GAIL MIXON on 09/05/19 1021 Atorvastatin Calcium (Lipitor) 10 Mg Tablet, 10 MG PO HS, (Reported) Entered as Reported by: JUSTYNA GEORGE on 09/13/17 2222 Bisacodyl (Dulcolax) 10 Mg Supp.rect, 10 MG RC DAILY PRN for CONSTIPATION-4TH LINE, (Reported) Entered as Reported by: CHACHO FRIEDMAN on 09/12/18923 Brimonidine Tartrate/Timolol (Combigan Eye Drops) 5 Ml Drops, 1 DROP OS BID, (Reported) Entered as Reported by: CHACHO FRIEDMAN on 09/12/18923 Brimonidine Tartrate/Timolol (Combigan Eye Drops) 5 Ml Drops, 1 DROP OD TID, (Reported) Entered as Reported by: CHACHO FRIEDMAN on 09/12/18923 Dorzolamide HCl/Pf (Dorzolamide 2% Eye Drop) 10 Ml Drops, 1 DROP OS BID, (Reported) Entered as Reported by: CHACHO FRIEDMAN on 09/12/18923 Dorzolamide HCl/Pf (Dorzolamide 2% Eye Drop) 10 Ml Drops, 1 DROP OD TID, (Reported) Entered as Reported by: CHACHO FRIEDMAN on 09/12/18923 Haloperidol Decanoate (Haloperidol Decanoate) 100 Mg/1 Ml Vial, 150 MG IM MONTHLY, (Reported) Entered as Reported by: CHACHO FRIEDMAN on 09/12/18928 Latanoprost (Latanoprost) 2.5 Ml Drops, 1 DROP OS HS, (Reported) Entered as Reported by: CHACHO FRIEDMAN on 09/12/18923 Magnesium Hydroxide (Milk of Magnesia) 400 Mg/5 Ml Oral.susp, 30 ML PO DAILY PRN for CONSTIPATION-7TH LINE, (Reported) Entered as Reported by: CHACHO FRIEDMAN on 09/12/18923 Mirtazapine (Remeron) 15 Mg Tablet, 15 MG PO HS, (Reported) Entered as Reported by: GAIL MIXON on 09/05/19 1021 Polyethylene Glycol 3350 (Miralax) 17 Gm Powd.pack, 17 GM PO DAILY, (Reported) Entered as Reported by: CHACHO FRIEDMAN on 09/12/18923 Rivaroxaban (Xarelto Starter Pack) 1 Each Tab.ds.pk, 1 EACH PO UD Prescribed by: MIRA GONZALEZ on 09/05/19 1406 Sennosides (Senna) 8.6 Mg Tablet, 17.2 MG PO BID, (Reported) Entered as Reported by: JUSTYNA GEORGE on 09/13/17 2222 Past Ammgbhq-Siyczm-Jcwyxn Hx Immunizations Up To Date Tetanus Booster (TDap): Unknown Seasonal Allergies Seasonal Allergies: Yes Past Medical History Surgeries: No (UNKNOWN) Respiratory: Yes (chronic rhinitis) Pulmonary Embolism Cardiac: Yes Chronic Edema/Swelling, High Cholesterol, Hypertension 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 8.0oz. 71.591282ge; 23.00 BMI Method:Stated Progress/Results/Core Measures Suspected Sepsis SIRS Temperature: Pulse: Respiratory Rate: Blood Pressure / Mean: Results/Orders Vital Signs/I&O Capillary Refill : Departure Impression Primary Impression: ATTEMPT TO SWALLOW BABY WIPE Disposition: 03 XFER SNF Condition: Stable Departure-Patient Inst. Decision time for Depature: 21:31 Referrals: GABRIELLE MACDONALD DO (PCP/Family) Primary Care Physician Patient Instructions: ACCIDENTAL INGESTION NON-TOXIC Add. Discharge Instructions: KEEP ALL POTENTIALLY HARMFUL OBJECTS OUT OF REACH OF PATIENT MAY EAT AND DRINK NORMAL CONTINUE ALL MEDICATIONS PRESCRIBED FOLLOW UP WITH YOUR DR NEEDED MO WHITFIELD DO Aug 21, 2022 21:32
== END 2022-08-21 22:28 ==
LOC: EDUNIT# 21:24 → ER 21:26
DX: T18.9XXA Foreign body of alimentary tract, part unspecified, initial encounter (principal)
CPT/HCPCS: 99283

== ENCOUNTER 2022-10-15 19:15 | Emergency (ER) | payer OTHER, MEDICARE, MEDICAID ==
--- NOTE | 2022-10-15 19:32 | ED Fall/Injury ---
General Stated Complaint: FALL Source: EMS, [facility] records Exam Limitations: other (PT WITH SEVERE DEMENTIA AND NON-SENSICAL SPEECH. IS UNABLE TO GIVE ANY INFORMATION. ) History of Present Illness Date Seen by Provider: Oct 15, 2022 Time Seen by Provider: 19:22 Initial Comments PT ARRIVES VIA EMS FROM [facility], WITH CERVICAL COLLAR IN PLACE PT FELL AT [facility]. IS UNCLEAR IF WITNESSED OR NOT. IT IS ALSO UNCLEAR IF HE HAD LOSS OF CONSCIOUSNESS OR NOT. PT HAS SMALL LACERATION TO RIGHT LATERAL BROW AREA WAS REPORTED TO EMS THAT PT WAS GUARDING HIS RIGHT ARM. PT IS ON XARELTO PT WITH SEVERE DEMENTIA AND IS AT NORMAL BASELINE. HE IS UNABLE TO ANSWER ANY QUESTIONS. PT IS DNR/DNI AND ON HOSPICE. PCP: DR. MACDONALD Allergies and Home Medications Allergies Coded Allergies: No Known Drug Allergies (Unverified , 01/10/18) Patient Home Medication List Home Medication List Reviewed: Yes Acetaminophen (Acetaminophen) 650 Mg Supp.rect, 650 MG RC Q8H PRN for PAIN-MILD OR TEMPATURE, (Reported) Entered as Reported by: CHACHO FRIEDMAN on 09/12/18923 Acetaminophen (Tylenol) 325 Mg Tablet, 650 MG PO Q8H PRN for PAIN-MILD OR TEMPATURE, (Reported) Entered as Reported by: CHACHO FRIEDMAN on 09/12/18923 Amoxicillin/Potassium Clav (Augmentin 875-125 Tablet) 1 Each Tablet, 1 EACH PO BID, (Reported) Entered as Reported by: GIAL MIXON on 09/05/19 1021 Atorvastatin Calcium (Lipitor) 10 Mg Tablet, 10 MG PO HS, (Reported) Entered as Reported by: JUSTYNA GEORGE on 09/13/172 Bisacodyl (Dulcolax) 10 Mg Supp.rect, 10 MG RC DAILY PRN for CONSTIPATION-4TH LINE, (Reported) Entered as Reported by: CHACHO FRIEDMAN on 09/12/18923 Brimonidine Tartrate/Timolol (Combigan Eye Drops) 5 Ml Drops, 1 DROP OS BID, (Reported) Entered as Reported by: CHACHO FRIEDMAN on 09/12/18923 Brimonidine Tartrate/Timolol (Combigan Eye Drops) 5 Ml Drops, 1 DROP OD TID, (Reported) Entered as Reported by: CHACHO FRIEDMAN on 09/12/18923 Dorzolamide HCl/Pf (Dorzolamide 2% Eye Drop) 10 Ml Drops, 1 DROP OS BID, (Reported) Entered as Reported by: CHACHO FRIEDMAN on 09/12/18923 Dorzolamide HCl/Pf (Dorzolamide 2% Eye Drop) 10 Ml Drops, 1 DROP OD TID, (Reported) Entered as Reported by: CHACHO FRIEDMAN on 09/12/18923 Haloperidol Decanoate (Haloperidol Decanoate) 100 Mg/1 Ml Vial, 150 MG IM MONTHLY, (Reported) Entered as Reported by: CHACHO FRIEDMAN on 09/12/18928 Latanoprost (Latanoprost) 2.5 Ml Drops, 1 DROP OS HS, (Reported) Entered as Reported by: CHACHO FRIEDMAN on 09/12/18923 Magnesium Hydroxide (Milk of Magnesia) 400 Mg/5 Ml Oral.susp, 30 ML PO DAILY PRN for CONSTIPATION-7TH LINE, (Reported) Entered as Reported by: CHACHO FRIEDMAN on 09/12/18923 Mirtazapine (Remeron) 15 Mg Tablet, 15 MG PO HS, (Reported) Entered as Reported by: GAIL MIXON on 09/05/19 1021 Polyethylene Glycol 3350 (Miralax) 17 Gm Powd.pack, 17 GM PO DAILY, (Reported) Entered as Reported by: CHACHO FRIEDMAN on 09/12/18923 Rivaroxaban (Xarelto Starter Pack) 1 Each Tab.ds.pk, 1 EACH PO UD Prescribed by: MIRA GONZALEZ on 09/05/19 1406 Sennosides (Senna) 8.6 Mg Tablet, 17.2 MG PO BID, (Reported) Entered as Reported by: JUSTYNA GEORGE on 09/13/172 Review of Systems Review of Systems Constitutional: see HPI Past Wcrzhzz-Zxetlp-Pcxorf Hx Patient Social History Smoking Status: Unknown if Ever Smoked Smokeless Tobacco Frequency: Unknown if Ever Used Use of E-Cig and/or Vaping [place]: Unknown if Ever Used Substance use?: Unable to obtain Alcohol Use?: Unable to obtain Immunizations Up To Date Tetanus Booster (TDap): Unknown Seasonal Allergies Seasonal Allergies: Yes Past Medical History Surgeries: No (UNKNOWN) Respiratory: Yes (chronic rhinitis; P.E. 2020) Pulmonary Embolism Cardiac: Yes Chronic Edema/Swelling, High Cholesterol, Hypertension Neurological: Yes (Vascular dementia w/behavorial disturbance;NON-SENSICAL SPEECH) Dementia, Neuropathy Genitourinary: Yes UTI-Chronic Gastrointestinal: Yes Chronic Constipation Musculoskeletal: Yes (Osteoarthritis) Arthritis Endocrine: No HEENT: Yes Glaucoma Psychosocial: Yes (DEMENTIA WITH BEHAVIOR DISTURBANCE/OUTBURSTS; MOOD DISORDER) Anxiety, Depression Integumentary: No Blood Disorders: No Family Medical History No Pertinent Family Hx Physical Exam Vital Signs Vital Signs - First Documented 10/15/22 19:15 Temp 37.8 Pulse 109 Resp 16 B/P (MAP) 129/98 (108) Pulse Ox 98 O2 Delivery Room Air Capillary Refill : Height, Weight, BMI Height: 5'7.00" Weight: 158lbs. 8.0oz. 71.775381le; 18.00 BMI Method:Stated General Appearance: no apparent distress, thin, other (PT TALKING NON-STOP NON- SENSICALLY. HE DOES NOT APPEAR TO BE IN ANY DISTRESS. PT IS KNOWN TO ER STAFF AND IS AT HIS NORMAL BASELINE. ) HEENT: TMs normal, other (ARCUS SENILIS BILATERALLY. PUPILS 3 MM AND EQUAL AND MINIMALLY REACTIVE. EDENTULOUS) Neck: other (CERVICAL COLLAR IN PLACE) Cardiovascular: regular rate, rhythm, no murmur Respiratory: normal breath sounds, no respiratory distress, no accessory muscle use Gastrointestinal: non tender Back: no vertebral tenderness Extremities: normal range of motion, normal capillary refill, other (UNABLE TO ELICIT ANY TENDERNESS. PT APPEARS TO BE MOVING BOTH ARMS AND LEGS EQUALLY. NO OBVIOUS GUARDING NOTED. ) Neurologic/Psychiatric: no motor/sensory deficits (GROSSLY INTACT--MOVES ALL EXTREMITIES EQUALLY. PT DOES NOT FOLLOW COMMANDS. ), alert, disoriented x 3, other (SPEECH IS NON-SENSICAL AND PT TALKS NON-STOP WHICH IS NORMAL BASELINE. PT DOES NOT FOLLOW COMMANDS WHICH IS NORMAL BASELINE. ) Skin: normal color (PT IS BLACK), warm/dry; No ecchymosis (NO BRUISING NOTED ANYWHERE. ); other (TINY LACERATION/ABRASION TO RIGHT LATERAL BROW AREA. NO ACTIVE BLEEDING AT THIS TIME. NO PERIORBITAL HEMATOMA) Progress/Results/Core Measures Results/Orders My Orders Orders - NAHID,MO K DO Ct Head/Face/Cervical Wo (10/15/22 19:25) Chest 1 View, Ap/Pa Only (10/15/22 19:25) Forearm, Right, 2 Views (10/15/22 19:25) Humerus, Right, 2 Views (10/15/22 19:25) Pelvis 1 To 2 Views (10/15/22 19:25) Vital Signs/I&O 10/15/22 10/15/22 19:15 21:19 Temp 37.8 37.4 Pulse 109 89 Resp 16 16 B/P (MAP) 129/98 (108) 128/96 Pulse Ox 98 98 O2 Delivery Room Air Room Air Progress Progress Note : Progress Note VITALS STABLE CT HEAD/MAXILLOFACIALS/CERVICAL SPINE CXR UNREMARKABLE PELVIS XRAY UNREMARKABLE RIGHT HUMERUS AND FOREARM XRAYS UNREMARKABLE STERI STRIPS PLACED OVER TINY LACERATION/ABRASION TO RIGHT BROW RN SPOKE WITH [facility] STAFF, AND UPDATED ON TEST RESULTS REVIEWED PRIOR RECORDS, INCLUDING ER VISITS, ADMITS/H&P'S/CONSULTS/DISCHARGE SUMMARIES, TESTS/PROCEDURES, [facility] PAPERWORK Diagnostic Imaging Comments XRAYS--ALL PER RADIOLOGIST REPORTS AT 2023 CXR--FINDINGS: Normal heart size and central pulmonary vascularity. No focal pulmonary opacity. No pleural effusion or pneumothorax. No acute osseous finding. IMPRESSION: No acute cardiopulmonary finding. RIGHT HUMERUS-- FINDINGS: No fracture or malalignment. Soft tissue shadows are unremarkable. IMPRESSION: No acute radiographic finding in the right humerus. The distal humerus is only included on the lateral view. RIGHT FOREARM-- FINDINGS/ IMPRESSION: No fracture or malalignment. Soft tissue shadows were unremarkable. Moderate degenerative changes in the right wrist. No true frontal radiograph was provided. PELVIS-- FINDINGS: Mild degenerative changes in both hips. No fracture. Soft tissue shadows are unremarkable. Moderate degenerative changes in the visualized lower lumbar spine. IMPRESSION: No acute radiographic finding in the pelvis or proximal femurs on this single view. CT HEAD/MAXILLOFACIALS/CERVICAL SPINE--PER RADIOLOGIST REPORT AT 2030 COMPARISON: CT head without contrast 09/11/2018. FINDINGS: CT HEAD: Moderate generalized parenchymal volume loss. Prominent size of the ventricular system without an obstructing lesion identified. No intracranial hemorrhage, mass effect or extra-axial fluid collection. No CT evidence of territorial infarction. The calvarium is intact. Mastoids are clear. Bilateral cerumen impactions. CT MAXILLOFACIAL: No maxillofacial fracture. Normal alignment of the temporomandibular joints. The mandible is intact. Paranasal sinuses are unremarkable. The orbits are negative. CT CERVICAL SPINE: Reversal of the normal cervical lordosis is likely positional or due to muscle spasm. Vertebral body heights are preserved. No fracture. Advanced diffuse spondylotic change. No high-grade spinal canal stenosis is evident by CT. No acute finding in the visualized paravertebral soft tissues. The lung apices are clear. IMPRESSION: 1. Size of the ventricular system is out of proportion to the degree of atrophy. Findings can be seen in the clinical setting of normal pressure hydrocephalus. 2. No evidence of intracranial hemorrhage. 3. No fracture. 4. Advanced spondylotic changes in the cervical spine. Reviewed: Reviewed by Me Departure Impression Primary Impression: Unwitnessed fall Additional Impressions: Minor head injury RIGHT BROW LACERATION Dementia XARELTO THERAPY Disposition: 03 XFER SNF Condition: Stable Departure-Patient Inst. Decision time for Depature: 20:31 Referrals: GABRIELLE MACDONALD DO (PCP/Family) Primary Care Physician Patient Instructions: Head Injury in Adults (DC), Skin Abrasions (DC) Add. Discharge Instructions: CONTINUE YOUR REGULAR MEDICATIONS PRESCRIBED TYLENOL NEEDED FOR PAIN LEAVE STERI STRIPS ALONE--WILL FALL OFF ON IT'S OWN IN A FEW DAYS. FOLLOW UP WITH YOUR DR NEEDED MO WHITFIELD DO Oct 15, 2022 19:32
--- NOTE | 2022-10-15 20:08 | Diagnostic Imaging Report ---
EXAM: Pelvis 1 to 2 views INDICATION: Pelvic pain. COMPARISON: None. FINDINGS: Mild degenerative changes in both hips. No fracture. Soft tissue shadows are unremarkable. Moderate degenerative changes in the visualized lower lumbar spine. IMPRESSION: No acute radiographic finding in the pelvis or proximal femurs on this single view. Dictated by: Dictated on workstation # [id number]
--- NOTE | 2022-10-15 20:09 | Diagnostic Imaging Report ---
EXAM: Chest 1 view, AP/PA only. INDICATION: Trauma. Fall. COMPARISON: 02/26/2020. FINDINGS: Normal heart size and central pulmonary vascularity. No focal pulmonary opacity. No pleural effusion or pneumothorax. No acute osseous finding. IMPRESSION: No acute cardiopulmonary finding. Dictated by: Dictated on workstation # [id number]
--- NOTE | 2022-10-15 20:10 | Diagnostic Imaging Report ---
EXAM: Humerus, right, 2 views INDICATION: Right arm pain. Trauma. COMPARISON: None. FINDINGS: No fracture or malalignment. Soft tissue shadows are unremarkable. IMPRESSION: No acute radiographic finding in the right humerus. The distal humerus is only included on the lateral view. Dictated by: Dictated on workstation # [id number]
--- NOTE | 2022-10-15 20:11 | Diagnostic Imaging Report ---
EXAM: Forearm, right, 2 views INDICATION: Right forearm pain. Trauma. COMPARISON: None. FINDINGS/ IMPRESSION: No fracture or malalignment. Soft tissue shadows were unremarkable. Moderate degenerative changes in the right wrist. No true frontal radiograph was provided. Dictated by: Dictated on workstation # [id number]
--- NOTE | 2022-10-15 20:23 | Diagnostic Imaging Report ---
PROCEDURE: CT head, face, and cervical spine without contrast. TECHNIQUE: Multiple contiguous axial images were obtained through the head, neck, and facial bones without the use of intravenous contrast. Sagittal and coronal reformations through the cervical spine and facial bones were also performed. Auto Exposure Controls were utilized during the CT exam to meet ALARA standards for radiation dose reduction. INDICATION: Trauma. Laceration. Altered mental status. Fall. COMPARISON: CT head without contrast 09/11/2018. FINDINGS: CT HEAD: Moderate generalized parenchymal volume loss. Prominent size of the ventricular system without an obstructing lesion identified. No intracranial hemorrhage, mass effect or extra-axial fluid collection. No CT evidence of territorial infarction. The calvarium is intact. Mastoids are clear. Bilateral cerumen impactions. CT MAXILLOFACIAL: No maxillofacial fracture. Normal alignment of the temporomandibular joints. The mandible is intact. Paranasal sinuses are unremarkable. The orbits are negative. CT CERVICAL SPINE: Reversal of the normal cervical lordosis is likely positional or due to muscle spasm. Vertebral body heights are preserved. No fracture. Advanced diffuse spondylotic change. No high-grade spinal canal stenosis is evident by CT. No acute finding in the visualized paravertebral soft tissues. The lung apices are clear. IMPRESSION: 1. Size of the ventricular system is out of proportion to the degree of atrophy. Findings can be seen in the clinical setting of normal pressure hydrocephalus. 2. No evidence of intracranial hemorrhage. 3. No fracture. 4. Advanced spondylotic changes in the cervical spine. Dictated by: Dictated on workstation # [id number]
[2022-10-15 21:19] VITALS: BP 128/96
== END 2022-10-15 21:19 ==
LOC: EDUNIT# 19:15 → ER 19:17
DX: S09.90XA Unspecified injury of head, initial encounter (principal); S01.111A Laceration without foreign body of right eyelid and periocular area, initial encounter; F03.C0 Unspecified dementia, severe, without behavioral disturbance, psychotic disturbance, mood disturbance, and anxiety; Z79.01 Long term (current) use of anticoagulants; W19.XXXA Unspecified fall, initial encounter; Y92.129 Unspecified place in nursing home as the place of occurrence of the external cause
CPT/HCPCS: 70450; 70486; 71045; 72125; 72170; 73060; 73090